=== PATIENT | male | born 1945 | race African-American/Black ===

== ENCOUNTER 2016-07-01 22:31 | Inpatient (IN) | payer MEDICARE, MEDICAID ==
[~2016-07-01] VITALS: Ht 170.2 cm; Wt 70.3 kg
[~2016-07-01 22:31] MED LIST: Morphine Sulfate 4mg/ml Inj IVP ONE
[2016-07-01 22:33] VITALS: BP 134/78
[2016-07-01 22:50] LABS: APPEARANCE,URINE CLEAR; BASOPHILS % (AUTO) 1.8 % (0.0-2.0); KETONES,URINE 1+ (NEGATIVE); LEUKOCYTE ESTERASE ,URINE NEGATIVE (NEGATIVE); LYMPHOCYTES % (AUTO) 17.5 % (20.0-45.0); MEAN CORPUSCULAR HEMOGLOBIN 29.6 PG (27.0-31.0); MEAN CORPUSCULAR HGB CONC 32.8 G/DL (32.0-36.0); MEAN CORPUSCULAR VOLUME 90 FL (80-99); MEAN PLATELET VOLUME 6.8 FL (6.5-10.1); MONOCYTES % (AUTO) 9.9 % (1.0-10.0); NEUTROPHILS % (AUTO) 69.8 % (45.0-75.0); NITRITE,URINE NEGATIVE (NEGATIVE); PH,URINE 8 (4.5-8.0); PLATELET COUNT 210 K/UL (150-450); PROTEIN,URINE NEGATIVE (NEGATIVE); RED BLOOD COUNT 4.52 M/UL (4.70-6.10); RED CELL DISTRIBUTION WIDTH 12.4 % (11.6-14.8); UROBILINOGEN,URINE NORMAL MG/DL (0.0-1.0); WHITE BLOOD COUNT 7.2 K/UL (4.8-10.8)
[2016-07-01] MEDS ORDERED: HARVONI 90-4001 EACH PO (22:59)
[2016-07-01 23:25] VITALS: BP 135/74
[2016-07-01 23:25] LABS: ALANINE AMINOTRANSFERASE 71 U/L (3-41); ALBUMIN/GLOBULIN RATIO 1.3 (1.0-2.7); ANION GAP 15 (5-15); ASPARTATE AMINO TRANSFERASE 85 U/L (5-40); CALCIUM 9.8 mg/dL (8.6-10.2); CARBON DIOXIDE 30 mEQ/L (20-30); CHLORIDE 98 mEQ/L (98-107); CREATININE 0.7 mg/dL (0.7-1.2); HEMOLYSIS 5; LIPASE 72 U/L (< 60); POTASSIUM 3.5 mEQ/L (3.4-4.9); SODIUM 143 mEQ/L (135-145); TOTAL PROTEIN 7.5 g/dL (6.6-8.7)
[2016-07-02 01:25] VITALS: BP 103/66
[2016-07-02] MEDS ORDERED: Morphine Sulfate 4mg/ml Inj IVP ONE (03:15)
[2016-07-02 03:25] VITALS: BP 105/69
--- NOTE | 2016-07-02 04:01 | Emergency Room Report ---
History of Present Illness General Chief Complaint: Abdominal Pain Source: Patient, EMS Present Illness HPI 70-year-old male presents to ED complaining of abdominal pain. Pain is localized mid abdomen, sharp, 7/10, nonradiating. Notes nausea and vomiting. No other aggravating or relieving factors. Denies chest pain or shortness of breath. Denies fevers or chills. Patient states he has history of small bowel obstruction in the past. Was admitted to [facility] several months ago for the same thing. History of appendectomy. History of hep C. Denies any other associated symptoms Allergies: Coded Allergies: No Known Allergies (Unverified , 07/01/16) Patient History Past Medical History: none, other - hep C Past Surgical History: appy Pertinent Family History: none Social History: Denies: alcohol use, drug use, smoking Immunizations: UTD Reviewed Nursing Documentation: PMH: Agreed, PSxH: Agreed Review of Systems All Other Systems: negative except mentioned in HPI Physical Exam Vital Signs Date Time Temp Pulse Resp B/P Pulse Ox O2 Delivery O2 Flow Rate FiO2 07/01/16 21:57 98.6 61 18 111/67 98 Room Air Sp02 EP Interpretation: reviewed, normal General Appearance: no apparent distress, alert, GCS 15, non-toxic Head: normocephalic Eyes: bilateral eye PERRL, bilateral eye normal inspection ENT: normal ENT inspection Neck: normal inspection Respiratory: chest non-tender, lungs clear, normal breath sounds, speaking full sentences Cardiovascular #1: regular rate, rhythm, no edema Gastrointestinal: normal bowel sounds, soft, non-distended, no guarding, no rebound, tenderness - periumbilical, other - surgical scar RLQ Rectal: deferred Genitourinary: no CVA tenderness Musculoskeletal: normal inspection Neurologic: alert, oriented x3, responsive, motor strength/tone normal, sensory intact, speech normal Psychiatric: normal inspection Skin: normal inspection Lymphatic: normal inspection Medical Decision Making Diagnostic Impression: Primary Impression: Partial small bowel obstruction ER Course Hospital Course 70-year-old male presents to ED with abdominal pain and vomiting. 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 After initial history and physical I ordered labs, IV fluids, UA, pain medication and CT scan Labs - no leukocytosis, Hb/Hct stable. electrolytes ok. CT abdomen and pelvis - SBO with transition point in RLQ. ? mesenteric volvolus vs internal hernia NG tube placed. Case discussed with Dr. Peralta and he agreed to accept the patient to his service for further care and support. Dr. Acevedo agreed to consult on case I feel this is a highly complex case requiring extensive working including EKG/ Rhythm strip, Xray/CT/US, Blood/urine lab work, repeat exams while in ED, and administration of strong opiates/narcotics for pain control, admission to hospital or close patient follow up. Diagnosis - partial small bowel obstruction Patient admitted to floor in serious condition Labs Test 07/01/16 22:37 White Blood Count 7.2 K/UL (4.8-10.8) Red Blood Count 4.52 M/UL (4.70-6.10) Hemoglobin 13.3 G/DL (14.2-18.0) Hematocrit 40.7 % (42.0-52.0) Mean Corpuscular Volume 90 FL (80-99) Mean Corpuscular Hemoglobin 29.6 PG (27.0-31.0) Mean Corpuscular Hemoglobin Concent 32.8 G/DL (32.0-36.0) Red Cell Distribution Width 12.4 % (11.6-14.8) Platelet Count 210 K/UL (150-450) Mean Platelet Volume 6.8 FL (6.5-10.1) Neutrophils (%) (Auto) 69.8 % (45.0-75.0) Lymphocytes (%) (Auto) 17.5 % (20.0-45.0) Monocytes (%) (Auto) 9.9 % (1.0-10.0) Eosinophils (%) (Auto) 1.0 % (0.0-3.0) Basophils (%) (Auto) 1.8 % (0.0-2.0) Urine Color Yellow Urine Appearance Clear Urine pH 8 (4.5-8.0) Urine Specific [place] 1.015 (1.005-1.035) Urine Protein Negative (NEGATIVE) Urine Glucose (UA) Negative (NEGATIVE) Urine Ketones 1+ (NEGATIVE) Urine Occult Blood Negative (NEGATIVE) Urine Nitrite Negative (NEGATIVE) Urine Bilirubin Negative (NEGATIVE) Urine Urobilinogen Normal MG/DL (0.0-1.0) Urine Leukocyte Esterase Negative (NEGATIVE) Sodium Level 143 mEQ/L (135-145) Potassium Level 3.5 mEQ/L (3.4-4.9) Chloride Level 98 mEQ/L (98-107) Carbon Dioxide Level 30 mEQ/L (20-30) Anion Gap 15 (5-15) Blood Urea Nitrogen 11 mg/dL (7-23) Creatinine 0.7 mg/dL (0.7-1.2) Estimat Glomerular Filtration Rate mL/min (>60) Glucose Level 99 mg/dL (74-106) Calcium Level 9.8 mg/dL (8.6-10.2) Total Bilirubin 0.8 mg/dL (0.0-1.2) Aspartate Amino Transf (AST/SGOT) 85 U/L (5-40) Alanine Aminotransferase (ALT/SGPT) 71 U/L (3-41) Alkaline Phosphatase 93 U/L (40-129) Total Protein 7.5 g/dL (6.6-8.7) Albumin 4.3 g/dL (3.5-5.2) Globulin 3.2 g/dL Albumin/Globulin Ratio 1.3 (1.0-2.7) Lipase 72 U/L (< 60) CT/MRI/US Diagnostic Results CT/MRI/US Diagnostic Results : Imaging Test Ordered: CT A/P Impression dilated small bowel loops. transition point in RLQ. ? mesenteric volvolus or internal hernia Last Vital Signs Date Time Temp Pulse Resp B/P Pulse Ox O2 Delivery O2 Flow Rate FiO2 07/02/16 03:25 78 15 105/69 98 Room Air 07/02/16 01:25 97.9 Status: improved Disposition: ADMITTED INPATIENT Condition: Serious Referrals: NON PHYSICIAN (PCP) MARCELINO FISCHER M.D. Jul 02, 2016 04:01
[2016-07-02 05:25] VITALS: BP 101/68
[2016-07-02 06:42] VITALS: BP 105/67
--- NOTE | 2016-07-02 10:17 | Consultation ---
DATE OF CONSULTATION: 07/02/2016 CONSULTING PHYSICIAN: Lashon Acevedo M.D. REQUESTING PHYSICIAN: Dante Peralta M.D. REASON FOR CONSULTATION: Abdominal pain. HISTORY OF PRESENT ILLNESS: This is a 70-year-old, male, who presented to emergency room complaining of abdominal pain since 5 o'clock in the afternoon yesterday. He stated the pain was periumbilical and apparently it has been crampy, but he is not sure if this crampy. At the emergency room, he was given an analgesic and since then, the pain has resolved. He stated that he vomited and prior to vomiting he had a normal bowel movement. Apparently, the patient has been admitted to [facility] three or four months ago for bowel obstruction and he states after two to three days he started having bowel movement and the pain resolved. The only surgery that he had in the abdomen is appendectomy, which apparently has been was performed for about six to seven years ago. He is not very clear, but he stated that occasionally if he has abdominal pain, but he has acid reflux so for. He denies any fever, cough, dysuria, or frequency. PAST MEDICAL HISTORY: He denies allergies, asthma, diabetes, hypertension, cardiac or renal diseases. He has a history hepatic C. PAST SURGICAL HISTORY: Surgeries include appendectomy, hemorrhoidectomy, and left inguinal herniorrhaphy. MEDICATIONS: Currently, he takes medicine for hepatitis C. SOCIAL HISTORY: The patient is a 70-year-old, male, who is and father of two children. He is unemployed. He denies smoking, and drinking, but has a history of IV drug abuse, but he claims that he has been clear and clean for 20 years. REVIEW OF SYSTEMS: Noncontributory. PHYSICAL EXAMINATION: GENERAL: The patient were appeared to be a well-developed, well-nourished, mildly cachectic 70-year-old, male, lying in bed, in no acute distress and denies any pain at the present time. HEENT: Head is normocephalic and atraumatic. Eyes, pupils are equal, round, and reactive to light. Mouth is clear, but is . NECK: There is no palpable thyromegaly or adenopathy. CHEST: Clear to auscultation and percussion. HEART: There is no gallop. There is no murmur. He has a split of the S2. ABDOMEN: Mildly distended, but soft. Not tender. The bowel sounds are hypoactive and there is no palpable organomegaly. GENITALIA: He is status post left inguinal herniorrhaphy. EXTREMITIES: Extremities are within normal limits. LABORATORY AND DIAGNOSTIC DATA: CBC is normal. WBC is 7200. Chemistry is normal. UA is normal. A CAT scan of the abdomen has shown dilated small bowel loops with a transition point in the right lower quadrant, but the patient has gas and air in the large bowel. ASSESSMENT: Partial small bowel obstruction. PLAN: At this time, the patient requires to be NPO, on IV fluids, and NG tube. I took the liberty of ordering a Gastrografin small bowel follow through. If his condition does not improve, he might require exploratory laparotomy. This has been explained to the patient and he understood. Lashon Acevedo M.D. DR: Helen JOB#: [id number] CC:
[2016-07-02] MEDS: Metoclopramide 10mg/2ml Inj IVP SCH ×2 (10:29→18:09)
[2016-07-02] MEDS: Pantoprazole Inj IVP SCH (10:30)
[2016-07-02] MEDS: Morphine Sulfate 2mg/ml Inj IVP PRN ×3 (13:54→22:55)
--- NOTE | 2016-07-02 14:12 | Consultation ---
Consult Note Consult Note ID Dic # [id number] Assessment/Plan A: Hep C on Rx ( Harvoni since 06/28/15 ) Partial SBO Ex IVDA P: Monitor pt off of IV AB Rx cont pt on Harvoni ( pt may take home meds, AURELIANO RN and Pt ) Monitor CBC Monitor BMP GenSx is following CT of Abd : THERESA GRANADOS M.D. Jul 02, 2016 14:12
[2016-07-02 16:00] VITALS: BP 144/85
[2016-07-02 20:00] VITALS: BP 135/79
[2016-07-03] MEDS: Metoclopramide 10mg/2ml Inj IVP SCH ×3 (01:43→16:16)
--- NOTE | 2016-07-03 02:27 | Consultation ---
DATE OF CONSULTATION: INFECTIOUS DISEASES CONSULTATION CONSULTING PHYSICIAN: Julian Martínez M.D. REQUESTING PHYSICIAN: REASON FOR CONSULTATION: Evaluation of the patient for small bowel obstruction, need for antibiotics and hepatitis C. HISTORY OF PRESENT ILLNESS: The patient is a 70-year-old male with past medical history significant for hepatitis C, who was started on his hepatitis C regimen four days ago (Harvoni). The patient came to the hospital with nausea and vomiting. The patient has been admitted with the impression of partial small bowel obstruction. The patient does not have fever. No leukocytosis. Infectious Disease consultation has been requested for further evaluation of the patient and antibiotic management. PAST MEDICAL HISTORY: 1. Significant for hepatitis C, the patient denies of having cirrhosis. 2. History of appendectomy. ALLERGIES: No known drug allergies. SOCIAL HISTORY: IV drug abuse and alcohol abuse in the past. FAMILY HISTORY: Noncontributory. REVIEW OF SYSTEMS: HEENT: No recent change in vision or hearing. Pulmonary: No cough or shortness of breath. Cardiovascular: No chest pain or palpitation. Gastrointestinal/Abdomen: As mentioned above. Genitourinary: No dysuria. Musculoskeletal: No pain in the extremities. PHYSICAL EXAMINATION: VITAL SIGNS: Temperature 98 degrees, blood pressure 113/69, pulse 72, and respiratory rate 18. HEENT: Mild pale conjunctivae. No icterus. NECK: No lymphadenopathy. CHEST: Coarse breathing sounds. HEART: S1 and S2. ABDOMEN: Soft. The patient is mildly distended. Has mild tenderness. NEUROLOGIC: Awake and alert. LABORATORY DATA: White blood cells 7.2, hemoglobin 13, and platelets 210,000. UA, unremarkable. BUN 11 and creatinine 0.7. ASSESSMENT: The patient is a 70-year-old male, who has been admitted to this medical center with impression of small bowel obstruction. The CT scan result is not available at this time. The patient has been taking hepatitis C treatment (Harvoni) for the last four days that needs to be continued. At this time, the patient has no fever or leukocytosis antibiotics for intra-abdominal sepsis/infection. PLAN: 1. We will monitor the patient off of IV antibiotics, however if the patient develops fever or leukocytosis, we will start empiric antibiotic treatment for coverage of gram negatives and anaerobes. 2. We will continue the patient on Harvoni (I explained to the patient and the nurse that the patient can take his home medication). 3. Monitor CBC. 4. Monitor BNP. 5. Follow recommendations regarding the small bowel obstruction by the consultants. 6. Based on the patient's clinical course and laboratories, we will do further recommendation. Thank you for this consultation. I will follow the patient during this admission. Julian Martínez M.D. DR: BROOKS JOB#: [id number] CC:
[2016-07-03] MEDS: Morphine Sulfate 2mg/ml Inj IVP PRN ×5 (03:03→21:05)
[2016-07-03 04:00] VITALS: BP 136/77
[2016-07-03] MEDS: Pantoprazole Inj IVP SCH (07:30)
[2016-07-03 08:00] VITALS: BP 154/88
[2016-07-03] MEDS: HARVONI ORAL SCH (09:44)
--- NOTE | 2016-07-03 10:29 | History and Physical ---
History of Present Illness General Date patient seen: Jul 02, 2016 Reason for Hospitalization: Abdominal Pain Present Illness HPI This is a 70 y/o AA male with history of SBO about 5 months ago and Hepatitis C who presented to the ED c/o abdominal pain since yesterday evening. Reports pain to be cramp like gladys-umbilically associated with nausea and vomiting. He still reports intermitted pain but no more vomiting. Patient states that he was at [facility] about 5 months ago when he had SBO and resolved after 2- [address] A/P in the ED revealed partial SBO. NGT was placed to [facility] and admitted for further care. Allergies: Coded Allergies: No Known Allergies (Unverified , 07/01/16) Medication History Miscellaneous Medications Ledipasvir/Sofosbuvir (Harvoni 90-400 mg Tablet), 1 EACH PO, (Reported) Patient History History Provided By: Patient Healthcare decision maker Resuscitation status Advanced Directive on File Past Medical/Surgical History Past Medical/Surgical History: (1) Hepatitis C Review of Systems All Other Systems: negative except mentioned in HPI Physical Exam General Appearance: WD/WN, no apparent distress Lines, tubes and drains: ngt HEENT: normocephalic, atraumatic Respiratory/Chest: lungs clear Cardiovascular/Chest: normal rate, regular rhythm Abdomen: non tender, soft Extremities: no edema Neurologic: alert, oriented x 3 Last 24 Hour Vital Signs Date Time Temp Pulse Resp B/P Pulse Ox O2 Delivery O2 Flow Rate FiO2 07/03/16 08:01 99.0 07/03/16 08:00 98.1 60 18 154/88 93 Room Air 07/03/16 04:00 99.0 59 18 136/77 97 Room Air 07/02/16 20:00 98.4 62 20 135/79 98 Room Air 07/02/16 16:00 98.1 68 18 144/85 98 Room Air Intake and Output 07/02/16 07/03/16 19:00 07:00 Intake Total 800 ml Output Total 350 ml 600 ml Balance -350 ml 200 ml Intake Oral 0 ml IV Total 800 ml Output Urine Total 350 ml Gastric Drainage Total 350 ml 250 ml # Voids 3 Height (Feet): 5 Height (Inches): 7.00 Weight (Pounds): 155 Medications Current Medications Medications (Trade) Dose Ordered Sig/Chester Route PRN Reason Start Time Stop Time Status Last Admin Dose Admin Dextrose (Dextrose 50%) STAT PRN IV Hypoglycemia 07/02/16 09:30 08/01/16 09:29 Dextrose/ Electrolytes (D5NS W/KCl 20meq 1000ml) 1,000 ml @ 100 mls/hr Q10H IV 07/02/16 10:29 08/01/16 10:28 07/02/16 22:55 Metoclopramide HCl 10 mg 10 mg Q8H IVP 07/02/16 09:15 08/01/16 09:14 07/03/16 09:48 Morphine Sulfate (Morphine Sulfate) 2 mg Q4H PRN IVP Severe Pain (Pain Scale 7-10) 07/02/16 09:30 07/09/16 09:29 07/03/16 07:31 Ondansetron HCl (Zofran) 4 mg Q6H PRN IVP Nausea & Vomiting 07/02/16 09:30 08/01/16 09:29 07/03/16 03:03 Pantoprazole (Protonix) 40 mg DAILY IVP 07/02/16 09:30 08/01/16 09:29 07/03/16 07:30 Patient Own Medication (Patient's Own Med) 1 ea DAILY ORAL 07/03/16 09:00 08/02/16 08:59 07/03/16 09:44 Assessment/Plan Problem List: (1) Partial small bowel obstruction ICD Codes: K56.69 - Other intestinal obstruction SNOMED: 590474325 (2) Hepatitis C ICD Codes: B19.20 - Unspecified viral hepatitis C without hepatic coma SNOMED: 34923865 Qualifiers: Assessment/Plan Surgery consulted with Dr. Acevedo. GI consulted with Dr. Leach. ID with Dr Hercules for hx Hep C. His current medication is not on formulary at [facility]. D/w Dr Peralta who agrees with plan. Pain management. IVF. Cont NGT to LIS. F/u recs per surgMADELYN LANDIN Jul 03, 2016 10:29
[2016-07-03 10:53] LABS: EOSINOPHILS % (AUTO) 0.2 % (0.0-3.0); LYMPHOCYTES % (AUTO) 19.3 % (20.0-45.0); MEAN CORPUSCULAR HEMOGLOBIN 29.5 PG (27.0-31.0); MEAN CORPUSCULAR HGB CONC 33.6 G/DL (32.0-36.0); MEAN CORPUSCULAR VOLUME 88 FL (80-99); MONOCYTES % (AUTO) 11.6 % (1.0-10.0); NEUTROPHILS % (AUTO) 67.9 % (45.0-75.0); PLATELET COUNT 216 K/UL (150-450); RED BLOOD COUNT 4.51 M/UL (4.70-6.10); RED CELL DISTRIBUTION WIDTH 12.3 % (11.6-14.8); WHITE BLOOD COUNT 8.2 K/UL (4.8-10.8)
[2016-07-03 11:04] LABS: ANION GAP 12 (5-15); CALCIUM 9.3 mg/dL (8.6-10.2); CARBON DIOXIDE 27 mEQ/L (20-30); CHLORIDE 105 mEQ/L (98-107); CREATININE 0.7 mg/dL (0.7-1.2); HEMOLYSIS 4; POTASSIUM 4.1 mEQ/L (3.4-4.9); SODIUM 144 mEQ/L (135-145)
--- NOTE | 2016-07-03 11:44 | GI Initial Consult Note ---
History of Present Illness General Date patient seen: Jul 03, 2016 Time patient seen: 10:00 Reason for Hospitalization: Abdominal Pain Referring physician: KYLEE HANSON Reason for Consultation: ABDOMINAL PAIN / SBO Present Illness HPI 70-year-old male presents to ED complaining of abdominal pain. Pain is localized mid abdomen, sharp, 7/10, nonradiating. Notes nausea and vomiting. No other aggravating or relieving factors. Denies chest pain or shortness of breath. Denies fevers or chills. Patient states he has history of small bowel obstruction in the past. Was admitted to [facility] several months ago for the same thing. History of appendectomy. History of hep C. Denies any other associated symptoms GI NOTE: HPI as noted above. Pt seen on floor, A&Ox4 NAD with no general complaints at this time. Denies N/V, diarrhea, or abdominal pain. No reports of passing flatus or BM. NPO with NGT to LICS. Pt also p/w today abnormal LFTs and elevated lipase. Pt stated he had a colonoscopy in [place] last week. He cannot recall the results of the procedure. Home Meds Reported Medications Ledipasvir/Sofosbuvir (Harvoni 90-400 mg Tablet) 1 Each Tablet, 1 EACH PO, TAB 07/01/16 Allergies: Coded Allergies: No Known Allergies (Unverified , 07/01/16) Patient History History Provided By: Patient, Medical Record PMH Narrative Past Medical History: none, other - hep C Past Surgical History: appy Pertinent Family History: none Social History: Denies: alcohol use, drug use, smoking Immunizations: UTD Reviewed Nursing Documentation: PMH: Agreed, PSxH: Agreed Review of Systems All Other Systems: negative except mentioned in HPI Physical Exam Vital Signs Date Time Temp Pulse Resp B/P Pulse Ox O2 Delivery O2 Flow Rate FiO2 07/01/16 21:57 98.6 61 18 111/67 98 Room Air Sp02 EP Interpretation: reviewed Labs Laboratory Tests Test 07/03/16 10:20 White Blood Count 8.2 K/UL (4.8-10.8) Red Blood Count 4.51 M/UL (4.70-6.10) L Hemoglobin 13.3 G/DL (14.2-18.0) L Hematocrit 39.6 % (42.0-52.0) L Mean Corpuscular Volume 88 FL (80-99) Mean Corpuscular Hemoglobin 29.5 PG (27.0-31.0) Mean Corpuscular Hemoglobin Concent 33.6 G/DL (32.0-36.0) Red Cell Distribution Width 12.3 % (11.6-14.8) Platelet Count 216 K/UL (150-450) Mean Platelet Volume 7.0 FL (6.5-10.1) Neutrophils (%) (Auto) 67.9 % (45.0-75.0) Lymphocytes (%) (Auto) 19.3 % (20.0-45.0) L Monocytes (%) (Auto) 11.6 % (1.0-10.0) H Eosinophils (%) (Auto) 0.2 % (0.0-3.0) Basophils (%) (Auto) 1.0 % (0.0-2.0) Sodium Level 144 mEQ/L (135-145) Potassium Level 4.1 mEQ/L (3.4-4.9) Chloride Level 105 mEQ/L (98-107) Carbon Dioxide Level 27 mEQ/L (20-30) Anion Gap 12 (5-15) Blood Urea Nitrogen 12 mg/dL (7-23) Creatinine 0.7 mg/dL (0.7-1.2) Estimat Glomerular Filtration Rate mL/min (>60) Glucose Level 108 mg/dL (74-106) H Calcium Level 9.3 mg/dL (8.6-10.2) Magnesium Level 1.9 mg/dL (1.7-2.5) General Appearance: well appearing, no apparent distress, alert Head: normocephalic EENT: normal ENT inspection Neck: supple Respiratory: normal breath sounds, no respiratory distress Cardiovascular: normal rate Gastrointestinal: ngt Rectal: deferred Musculoskeletal: back normal Neurologic: normal inspection, alert, oriented x3, responsive Psychiatric: normal inspection, judgement/insight normal Skin: normal inspection, normal color, no rash, warm/dry Lymphatic: normal inspection, no adenopathy Current Medications Current Medications Medications (Trade) Dose Ordered Sig/[place]ster Route PRN Reason Start Time Stop Time Status Last Admin Dose Admin Dextrose (Dextrose 50%) STAT PRN IV Hypoglycemia 07/02/16 09:30 08/01/16 09:29 Dextrose/ Electrolytes (D5NS W/KCl 20meq 1000ml) 1,000 ml @ 100 mls/hr Q10H IV 07/02/16 10:29 08/01/16 10:28 07/02/16 22:55 Metoclopramide HCl 10 mg 10 mg Q8H IVP 07/02/16 09:15 08/01/16 09:14 07/03/16 09:48 Morphine Sulfate (Morphine Sulfate) 2 mg Q4H PRN IVP Severe Pain (Pain Scale 7-10) 07/02/16 09:30 07/09/16 09:29 07/03/16 07:31 Ondansetron HCl (Zofran) 4 mg Q6H PRN IVP Nausea & Vomiting 07/02/16 09:30 08/01/16 09:29 07/03/16 03:03 Pantoprazole (Protonix) 40 mg DAILY IVP 07/02/16 09:30 08/01/16 09:29 07/03/16 07:30 Patient Own Medication (Patient's Own Med) 1 ea DAILY ORAL 07/03/16 09:00 08/02/16 08:59 07/03/16 09:44 GI: Plan Problems: (1) Abdominal pain (2) Elevated lipase (3) Hepatitis C (4) Partial small bowel obstruction Plan f/u surgical recs fu SB follow thru maintain NPO + IVFs NGTF to LCIS ppi cont reglan fu labs Discussed with Dr. Leach. Thank you for referring this patient, we will follow. Alma Encinas N.P. Jul 03, 2016 11:44
[2016-07-03 12:00] VITALS: BP 137/78
--- NOTE | 2016-07-03 15:11 | Nephrology Progress Note ---
Assessment/Plan Problem List: (1) Partial small bowel obstruction (2) Abdominal pain (3) Elevated lipase Plan Continue NPO Continue IVF Continue NGT-LIS Pain mgt F/u with surg recs Subjective Constitutional: Denies: chills, diaphoresis, fever, malaise, no symptoms, other , weakness HEENT: Denies: blurred vision, double vision, ear discharge, ear pain, eye pain , mouth pain, mouth swelling, no symptoms, nose congestion, nose pain, other, tearing, throat pain, throat swelling Genitourinary: Denies: burning, discharge, flank pain, frequency, hematuria, incontinence, no symptoms, other, pain, urgency Neurologic/Psychiatric: Denies: anxiety, depressed, emotional problems, headache, no symptoms, numbness, other, paresthesia, pre-existing deficit, seizure, tingling, tremors, weakness Subjective In bed, in no distress, stated that he was in severe pain earlier when he was given some contrast. NGT-LIS Objective Objective Last 24 Hour Vital Signs Date Time Temp Pulse Resp B/P Pulse Ox O2 Delivery O2 Flow Rate FiO2 07/03/16 13:29 99.0 07/03/16 12:00 99.1 57 18 137/78 98 Room Air 07/03/16 08:00 98.1 60 18 154/88 93 Room Air 07/03/16 04:00 99.0 59 18 136/77 97 Room Air 07/02/16 20:00 98.4 62 20 135/79 98 Room Air 07/02/16 16:00 98.1 68 18 144/85 98 Room Air Intake and Output 07/02/16 07/03/16 19:00 07:00 Intake Total 800 ml Output Total 350 ml 600 ml Balance -350 ml 200 ml Intake Oral 0 ml IV Total 800 ml Output Urine Total 350 ml Gastric Drainage Total 350 ml 250 ml # Voids 3 Laboratory Tests 07/03/16 10:20: White Blood Count 8.2, Red Blood Count 4.51L, Hemoglobin 13.3L, Hematocrit 39.6L , Mean Corpuscular Volume 88, Mean Corpuscular Hemoglobin 29.5, Mean Corpuscular Hemoglobin Concent 33.6, Red Cell Distribution Width 12.3, Platelet Count 216, Mean Platelet Volume 7.0, Neutrophils (%) (Auto) 67.9, Lymphocytes (% ) (Auto) 19.3L, Monocytes (%) (Auto) 11.6H, Eosinophils (%) (Auto) 0.2, Basophils (%) (Auto) 1.0, Sodium Level 144, Potassium Level 4.1, Chloride Level 105, Carbon Dioxide Level 27, Anion Gap 12, Blood Urea Nitrogen 12, Creatinine 0.7, Estimat Glomerular Filtration Rate , Glucose Level 108H, Calcium Level 9.3 , Magnesium Level 1.9 Height (Feet): 5 Height (Inches): 7.00 Weight (Pounds): 155 General Appearance: alert EENT: normal ENT inspection Neck: normal alignment, normal inspection Cardiovascular: normal rate, regular rhythm Respiratory/Chest: lungs clear, normal breath sounds Abdomen: decreased bowel sounds Extremities: normal range of motion, non-tender, normal inspection Neurologic: alert, oriented x 3, responsive, normal mood/affect Alona Olivera N.P. Jul 03, 2016 15:11
[2016-07-03 16:00] VITALS: BP 153/91
--- NOTE | 2016-07-03 18:29 | Infectious Diseases Prog Note ---
Assessment/Plan Assessment/Plan ASSESSMENT: 70 y/o male with: Chronic HCV, on Harvoni since 06/28/15 Afebrile without leukocytosis Partial SBO h/o IVDA NKDA Full Code PLAN: no indication for systemic ABX at this time continue Harvoni ( pt may take home meds ) f/u cultures f/u CT A/P Monitor CBC, temperatures Monitor CMP Subjective Allergies: Coded Allergies: No Known Allergies (Unverified , 07/01/16) Subjective remains afebrile Objective Vital Signs Last 24 Hour Vital Signs Date Time Temp Pulse Resp B/P Pulse Ox O2 Delivery O2 Flow Rate FiO2 07/03/16 16:00 97.3 61 21 153/91 98 Room Air 07/03/16 13:29 99.0 07/03/16 12:00 99.1 57 18 137/78 98 Room Air 07/03/16 08:00 98.1 60 18 154/88 93 Room Air 07/03/16 04:00 99.0 59 18 136/77 97 Room Air 07/02/16 20:00 98.4 62 20 135/79 98 Room Air Height (Feet): 5 Height (Inches): 7.00 Weight (Pounds): 155 General Appearance: no acute distress Respiratory/Chest: no respiratory distress Cardiovascular: normal rate, regular rhythm Abdomen: normal bowel sounds, soft, non tender, non distended Laboratory Tests Test 07/03/16 10:20 White Blood Count 8.2 K/UL (4.8-10.8) Red Blood Count 4.51 M/UL (4.70-6.10) L Hemoglobin 13.3 G/DL (14.2-18.0) L Hematocrit 39.6 % (42.0-52.0) L Mean Corpuscular Volume 88 FL (80-99) Mean Corpuscular Hemoglobin 29.5 PG (27.0-31.0) Mean Corpuscular Hemoglobin Concent 33.6 G/DL (32.0-36.0) Red Cell Distribution Width 12.3 % (11.6-14.8) Platelet Count 216 K/UL (150-450) Mean Platelet Volume 7.0 FL (6.5-10.1) Neutrophils (%) (Auto) 67.9 % (45.0-75.0) Lymphocytes (%) (Auto) 19.3 % (20.0-45.0) L Monocytes (%) (Auto) 11.6 % (1.0-10.0) H Eosinophils (%) (Auto) 0.2 % (0.0-3.0) Basophils (%) (Auto) 1.0 % (0.0-2.0) Sodium Level 144 mEQ/L (135-145) Potassium Level 4.1 mEQ/L (3.4-4.9) Chloride Level 105 mEQ/L (98-107) Carbon Dioxide Level 27 mEQ/L (20-30) Anion Gap 12 (5-15) Blood Urea Nitrogen 12 mg/dL (7-23) Creatinine 0.7 mg/dL (0.7-1.2) Estimat Glomerular Filtration Rate mL/min (>60) Glucose Level 108 mg/dL (74-106) H Calcium Level 9.3 mg/dL (8.6-10.2) Magnesium Level 1.9 mg/dL (1.7-2.5) Current Medications Medications (Trade) Dose Ordered Sig/Chester Route PRN Reason Start Time Stop Time Status Last Admin Dose Admin Dextrose (Dextrose 50%) STAT PRN IV Hypoglycemia 07/02/16 09:30 08/01/16 09:29 Dextrose/ Electrolytes (D5NS W/KCl 20meq 1000ml) 1,000 ml @ 100 mls/hr Q10H IV 07/02/16 10:29 08/01/16 10:28 07/02/16 22:55 Metoclopramide HCl 10 mg 10 mg Q8H IVP 07/02/16 09:15 08/01/16 09:14 07/03/16 16:16 Morphine Sulfate (Morphine Sulfate) 2 mg Q4H PRN IVP Severe Pain (Pain Scale 7-10) 07/02/16 09:30 07/09/16 09:29 07/03/16 17:08 Ondansetron HCl (Zofran) 4 mg Q6H PRN IVP Nausea & Vomiting 07/02/16 09:30 08/01/16 09:29 07/03/16 13:07 Pantoprazole (Protonix) 40 mg DAILY IVP 07/02/16 09:30 08/01/16 09:29 07/03/16 07:30 Patient Own Medication (Patient's Own Med) 1 ea DAILY ORAL 07/03/16 09:00 08/02/16 08:59 07/03/16 09:44 EMMANUEL MCCLOUD Jul 03, 2016 18:29
[2016-07-03 20:00] VITALS: BP 150/84
[2016-07-04] VITALS (12 sets, daily range): BP systolic 120–153; BP diastolic 80–93
[2016-07-04] MEDS: Metoclopramide 10mg/2ml Inj IVP SCH ×3 (00:59→17:43)
[2016-07-04] MEDS: Morphine Sulfate 2mg/ml Inj IVP PRN ×4 (01:00→17:51)
[2016-07-04 07:37] LABS: BASOPHILS % (AUTO) 0.5 % (0.0-2.0); EOSINOPHILS % (AUTO) 0.2 % (0.0-3.0); LYMPHOCYTES % (AUTO) 10.8 % (20.0-45.0); MEAN CORPUSCULAR HGB CONC 32.9 G/DL (32.0-36.0); MEAN CORPUSCULAR VOLUME 91 FL (80-99); MEAN PLATELET VOLUME 7.1 FL (6.5-10.1); MONOCYTES % (AUTO) 12.2 % (1.0-10.0); NEUTROPHILS % (AUTO) 76.3 % (45.0-75.0); PLATELET COUNT 214 K/UL (150-450); RED BLOOD COUNT 4.62 M/UL (4.70-6.10); RED CELL DISTRIBUTION WIDTH 11.9 % (11.6-14.8); WHITE BLOOD COUNT 11.1 K/UL (4.8-10.8)
[2016-07-04 08:02] LABS: ALANINE AMINOTRANSFERASE 48 U/L (3-41); ALBUMIN/GLOBULIN RATIO 1.2 (1.0-2.7); ANION GAP 11 (5-15); ASPARTATE AMINO TRANSFERASE 52 U/L (5-40); CALCIUM 9.8 mg/dL (8.6-10.2); CARBON DIOXIDE 30 mEQ/L (20-30); CHLORIDE 109 mEQ/L (98-107); CREATININE 0.8 mg/dL (0.7-1.2); HEMOLYSIS 8; SODIUM 150 mEQ/L (135-145); TOTAL PROTEIN 7.4 g/dL (6.6-8.7)
--- NOTE | 2016-07-04 08:33 | Diagnostic Imaging Report ---
Indications: Abdominal pain, significant small bowel dilation on recent abdominopelvic CT scan Technique: Single: Small bowel series performed with administration of Gastrografin through indwelling nasogastric tube. Serial overhead images of the abdomen and pelvis obtained for a duration of 9 hours. The patient vomited several times during the procedure, expelling some of the administered Gastrografin. Findings: Comparison: CT abdomen pelvis 07/02/2016 Abdomen AP stripper color film a straight persistent significant dilation of multiple small bowel loops, gas and feces scattered throughout nondilated colon, nasogastric tube in stomach. Gastrografin passes to the level of mid-distal small bowel in pelvis by 9 hours following administration has become significantly dilated. It has not reached the colon. Impression: Lack of passage of administered Gastrografin into the colon by 9 hours, small bowel obstruction versus severe ileus followup abdominal radiograph recommended.
[2016-07-04] MEDS: Pantoprazole Inj IVP SCH (08:50)
[2016-07-04] MEDS: HARVONI ORAL SCH (08:50)
--- NOTE | 2016-07-04 11:00 | GI Progress Note ---
Assessment/Plan Problems: (1) Elevated lipase ICD Codes: R74.8 - Abnormal levels of other serum enzymes SNOMED: 810699260 (2) Abdominal pain ICD Codes: R10.9 - Unspecified abdominal pain SNOMED: 88376343 (3) Partial small bowel obstruction ICD Codes: K56.69 - Other intestinal obstruction SNOMED: 306275216 (4) Hepatitis C ICD Codes: B19.20 - Unspecified viral hepatitis C without hepatic coma SNOMED: 68865482 Qualifiers: Status: unchanged Status Narrative Discussed with Dr. Leach. Assessment/Plan f/u surgical recs SB xray reviewed maintain NPO + IVFs NGTF to LCIS ppi cont reglan fu labs outpatient Hep C tx The patient was seen and examined at bedside and all new and available data was reviewed in the patients chart. I agree with the above findings, impression and plan. (Patient seen earlier today. Signature stamp does not reflect patient encounter time.). -Calderon Leach MD Subjective Gastrointestinal/Abdominal: Reports: no symptoms Objective Last 24 Hour Vital Signs Date Time Temp Pulse Resp B/P Pulse Ox O2 Delivery O2 Flow Rate FiO2 07/04/16 09:22 98.0 07/04/16 08:29 98.0 65 20 145/88 95 Room Air 07/04/16 04:00 98.1 61 19 153/88 97 Room Air 07/04/16 00:00 98.2 66 20 148/89 97 Room Air 07/03/16 20:00 98.4 65 21 150/84 98 Room Air 07/03/16 16:00 97.3 61 21 153/91 98 Room Air 07/03/16 12:00 99.1 57 18 137/78 98 Room Air Intake and Output 07/03/16 07/04/16 19:00 07:00 Intake Total 1050 ml Output Total 150 ml 1850 ml Balance -150 ml -800 ml IV Total 1050 ml Gastric Drainage Total 150 ml 1850 ml # Voids 3 2 Laboratory Tests Test 07/04/16 06:15 White Blood Count 11.1 K/UL (4.8-10.8) H Red Blood Count 4.62 M/UL (4.70-6.10) L Hemoglobin 13.9 G/DL (14.2-18.0) L Hematocrit 42.1 % (42.0-52.0) Mean Corpuscular Volume 91 FL (80-99) Mean Corpuscular Hemoglobin 30.0 PG (27.0-31.0) Mean Corpuscular Hemoglobin Concent 32.9 G/DL (32.0-36.0) Red Cell Distribution Width 11.9 % (11.6-14.8) Platelet Count 214 K/UL (150-450) Mean Platelet Volume 7.1 FL (6.5-10.1) Neutrophils (%) (Auto) 76.3 % (45.0-75.0) H Lymphocytes (%) (Auto) 10.8 % (20.0-45.0) L Monocytes (%) (Auto) 12.2 % (1.0-10.0) H Eosinophils (%) (Auto) 0.2 % (0.0-3.0) Basophils (%) (Auto) 0.5 % (0.0-2.0) Sodium Level 150 mEQ/L (135-145) H Potassium Level 5.0 mEQ/L (3.4-4.9) H Chloride Level 109 mEQ/L (98-107) H Carbon Dioxide Level 30 mEQ/L (20-30) Anion Gap 11 (5-15) Blood Urea Nitrogen 10 mg/dL (7-23) Creatinine 0.8 mg/dL (0.7-1.2) Estimat Glomerular Filtration Rate mL/min (>60) Glucose Level 124 mg/dL (74-106) H Calcium Level 9.8 mg/dL (8.6-10.2) Total Bilirubin 0.8 mg/dL (0.0-1.2) Aspartate Amino Transf (AST/SGOT) 52 U/L (5-40) H Alanine Aminotransferase (ALT/SGPT) 48 U/L (3-41) H Alkaline Phosphatase 87 U/L (40-129) Total Protein 7.4 g/dL (6.6-8.7) Albumin 4.1 g/dL (3.5-5.2) Globulin 3.3 g/dL Albumin/Globulin Ratio 1.2 (1.0-2.7) Lipase 23 U/L (< 60) Height (Feet): 5 Height (Inches): 7.00 Weight (Pounds): 155 General Appearance: no apparent distress, alert Cardiovascular: normal rate Respiratory/Chest: normal breath sounds, no respiratory distress Abdominal Exam: normal bowel sounds, non tender, soft, other - NGT Extremities: normal range of motion Objective Procedure: XRAY Small Bowel w/Gastrografi Indications: Abdominal pain, significant small bowel dilation on recent abdominopelvic CT scan Findings: Comparison: CT abdomen pelvis 07/02/2016 Abdomen AP datacap developer film a straight persistent significant dilation of multiple small bowel loops, gas and feces scattered throughout nondilated colon, nasogastric tube in stomach. Gastrografin passes to the level of mid-distal small bowel in pelvis by 9 hours following administration has become significantly dilated. It has not reached the colon. Impression: Lack of passage of administered Gastrografin into the colon by 9 hours, small bowel obstruction versus severe ileus followup abdominal radiograph recommended. Alma Encinas N.P. Jul 04, 2016 11:00 CALDERON LEACH Jul 05, 2016 10:20
--- NOTE | 2016-07-04 11:11 | Diagnostic Imaging Report ---
Indications: Abdominal pain, followup to Gastrografin small bowel study Technique: Portable supine AP abdomen Findings: Comparison: Gastrografin small bowel study 07/03/2016 Gastrografin no longer demonstrated. Small bowel dilation persists. Colonic gas persists. Nasogastric tube has been withdrawn into the distal thoracic esophagus. IMPRESSION: Persistent small bowel dilation. Nonvisualization of Gastrografin likely secondary to dilution. Examination nondiagnostic for bowel obstruction. Withdrawal of nasogastric tube, recommend advancement 10 cm.
[2016-07-04] MEDS ORDERED: cefOXitin 1gm Inj ONE (11:56)
[2016-07-04] MEDS ORDERED: fentaNYL 100 mcg/2 mL IV ONE (12:00)
[2016-07-04] MEDS ORDERED: NS Irrig 1000ml ONE (12:00)
[2016-07-04] MEDS ORDERED: Midazolam 2mg/2ml Inj ONE (12:00)
[2016-07-04] MEDS ORDERED: Neostigmine 1mg/ml 10ml Inj ONE (12:00)
[2016-07-04] MEDS ORDERED: Succinylcholine 20mg/ml 10ml vial ONE (12:00)
[2016-07-04] MEDS ORDERED: Sterile Water Irrig 1000ml IRRIG ONE (12:00)
[2016-07-04] MEDS ORDERED: Zemuron 50mg/5ml Inj IV ONE (12:00)
[2016-07-04] MEDS ORDERED: Propofol 10mg/ml 20ml IV ONE (12:00)
[2016-07-04] MEDS ORDERED: Glycopyrrolate 0.2mg/ml 1ml Vial ONE (12:00)
[2016-07-04] MEDS ORDERED: Morphine Sulfate 10mg/ml Inj ONE (12:00)
--- NOTE | 2016-07-04 12:02 | Pre-Procedure Note/Attestation ---
Pre-Procedure Note/Attestation Complete Prior to Procedure Procedure Narrative: Exploratory Laparotomy Indications for Procedure Pre-Operative Diagnosis: Small bowel obstruction Attestation I attest that I discussed the nature of the procedure; its benefits; risks and complications; and alternatives (and the risks and benefits of such alternatives ), prior to the procedure, with the patient (or the patient's legal bottling equipment sales representative). I attest that, if there was a reasonable possibility of needing a blood transfusion, the patient (or the patient's legal bottling equipment sales representative) was given the [facility] standardized written summary, pursuant to the [place] Hall[place] Blood Safety Act ([place] Health and Safety Code # 1645, as amended). I attest that I re-evaluated the patient just prior to the surgery and that there has been no change in the patient's H&P, except as documented below: ALEXEY LACY Jul 04, 2016 12:01
--- NOTE | 2016-07-04 12:21 | Nephrology Progress Note ---
Assessment/Plan Problem List: (1) Partial small bowel obstruction (2) Hepatitis C (3) Abdominal pain (4) Elevated lipase Plan cont NGT to LIS. F/u GI and Surg recs. Change IVF to D51/2 @75cc/hr. f/u labs. Subjective Subjective NGT in place. Objective Objective Last 24 Hour Vital Signs Date Time Temp Pulse Resp B/P Pulse Ox O2 Delivery O2 Flow Rate FiO2 07/04/16 09:22 98.0 07/04/16 08:29 98.0 65 20 145/88 95 Room Air 07/04/16 04:00 98.1 61 19 153/88 97 Room Air 07/04/16 00:00 98.2 66 20 148/89 97 Room Air 07/03/16 20:00 98.4 65 21 150/84 98 Room Air 07/03/16 16:00 97.3 61 21 153/91 98 Room Air Intake and Output 07/03/16 07/04/16 19:00 07:00 Intake Total 1050 ml Output Total 150 ml 1850 ml Balance -150 ml -800 ml IV Total 1050 ml Gastric Drainage Total 150 ml 1850 ml # Voids 3 2 Laboratory Tests 07/04/16 06:15: White Blood Count 11.1H, Red Blood Count 4.62L, Hemoglobin 13.9L, Hematocrit 42.1, Mean Corpuscular Volume 91, Mean Corpuscular Hemoglobin 30.0, Mean Corpuscular Hemoglobin Concent 32.9, Red Cell Distribution Width 11.9, Platelet Count 214, Mean Platelet Volume 7.1, Neutrophils (%) (Auto) 76.3H, Lymphocytes ( %) (Auto) 10.8L, Monocytes (%) (Auto) 12.2H, Eosinophils (%) (Auto) 0.2, Basophils (%) (Auto) 0.5, Sodium Level 150H, Potassium Level 5.0H, Chloride Level 109H, Carbon Dioxide Level 30, Anion Gap 11, Blood Urea Nitrogen 10, Creatinine 0.8, Estimat Glomerular Filtration Rate , Glucose Level 124H, Calcium Level 9.8, Total Bilirubin 0.8, Aspartate Amino Transf (AST/SGOT) 52H, Alanine Aminotransferase (ALT/SGPT) 48H, Alkaline Phosphatase 87, Total Protein 7.4, Albumin 4.1, Globulin 3.3, Albumin/Globulin Ratio 1.2, Lipase 23 Height (Feet): 5 Height (Inches): 7.00 Weight (Pounds): 155 General Appearance: no apparent distress Cardiovascular: normal rate, regular rhythm Respiratory/Chest: lungs clear Abdomen: non tender, soft Extremities: non-pitting Neurologic: alert, oriented x 3 KYLEE HANSON Jul 04, 2016 12:21
[2016-07-04] MEDS ORDERED: Bacitracin 50000 Units Vial ONE (12:30)
--- NOTE | 2016-07-04 12:54 | Anethesia Preoperative Eval ---
Anesthesia Pre-op PMH/ROS General Date of Evaluation: Jul 04, 2016 Time of Evaluation: 11:50 Anesthesiologist: Wei ASA Score: ASA 3 Mallampati Score Class I : Soft palate, uvula, fauces, pillars visible Class II: Soft palate, uvula, fauces visible Class III: Soft palate, base of uvula visible Class IV: Only hard plate visible Mallampati Classification: Class II Surgeon: Bowel obstruction Diagnosis: Exploratory laparotomy Surgical Procedure: [facility] Anesthesia History: none Social History: drug use - h/o Family History: no anesthesia problems Allergies: Coded Allergies: No Known Allergies (Unverified , 07/01/16) Past Medical History Cardiovascular: Reports: HTN, Denies: CAD, [place], arrhythmia, other, valve dz Pulmonary: Denies: COPD, COMFORT, asthma, other Gastrointestinal/Genitourinary: Reports: GERD, other - admitted for abdominal pain, Denies: CRI, ESRD Neurologic/Psychiatric: Reports: dementia - mild, Denies: CVA, TIA, depression/anxiety, other Endocrine: Denies: DM, hypothyroidism, other, steroids HEENT: Denies: [place] (L), [place] (R), cataract (L), cataract (R), glaucoma, other Hematology/Immune: Denies: DVT, anemia, bleeding disorder, other Musculoskeletal/Integumentary: Denies: DDD, DJD, OA, RA, edema, other Other: other - malnourished PMH Narrative: as above PSxH Narrative: Appendectomy Anesthesia Pre-op Phys. Exam Physician Exam Last Vital Signs Date Time Temp Pulse Resp B/P Pulse Ox O2 Delivery O2 Flow Rate FiO2 07/04/16 09:22 98.0 07/04/16 08:29 65 20 145/88 95 Room Air Constitutional: NAD Neurologic: CN 2-12 intact Cardiovascular: RRR, no M/R/G Respiratory: CTA Gastrointestinal: S/NT/ND Airway Exam Mallampati Score: Class II MO: full Neck: stiff Teeth: missing Dentures: no lower, no upper Anesthesia Pre-op A/P Labs Hematology Test 07/04/16 06:15 White Blood Count 11.1 K/UL (4.8-10.8) H Red Blood Count 4.62 M/UL (4.70-6.10) L Hemoglobin 13.9 G/DL (14.2-18.0) L Hematocrit 42.1 % (42.0-52.0) Mean Corpuscular Volume 91 FL (80-99) Mean Corpuscular Hemoglobin 30.0 PG (27.0-31.0) Mean Corpuscular Hemoglobin Concent 32.9 G/DL (32.0-36.0) Red Cell Distribution Width 11.9 % (11.6-14.8) Platelet Count 214 K/UL (150-450) Mean Platelet Volume 7.1 FL (6.5-10.1) Neutrophils (%) (Auto) 76.3 % (45.0-75.0) H Lymphocytes (%) (Auto) 10.8 % (20.0-45.0) L Monocytes (%) (Auto) 12.2 % (1.0-10.0) H Eosinophils (%) (Auto) 0.2 % (0.0-3.0) Basophils (%) (Auto) 0.5 % (0.0-2.0) Chemistry Test 07/04/16 06:15 Sodium Level 150 mEQ/L (135-145) H Potassium Level 5.0 mEQ/L (3.4-4.9) H Chloride Level 109 mEQ/L (98-107) H Carbon Dioxide Level 30 mEQ/L (20-30) Anion Gap 11 (5-15) Blood Urea Nitrogen 10 mg/dL (7-23) Creatinine 0.8 mg/dL (0.7-1.2) Estimat Glomerular Filtration Rate mL/min (>60) Glucose Level 124 mg/dL (74-106) H Calcium Level 9.8 mg/dL (8.6-10.2) Total Bilirubin 0.8 mg/dL (0.0-1.2) Aspartate Amino Transf (AST/SGOT) 52 U/L (5-40) H Alanine Aminotransferase (ALT/SGPT) 48 U/L (3-41) H Alkaline Phosphatase 87 U/L (40-129) Total Protein 7.4 g/dL (6.6-8.7) Albumin 4.1 g/dL (3.5-5.2) Globulin 3.3 g/dL Albumin/Globulin Ratio 1.2 (1.0-2.7) Lipase 23 U/L (< 60) Risk Assessment & Plan Assessment: ASA 3 Plan: GA with ETT Status Change Before Surgery: No Pre-Antibiotics Drug: Cefoxitin 1gr. Given Within 1 Hr of Incision: Yes Time Given: 12:20 PARAG MIRZA M.D. Jul 04, 2016 12:54
[2016-07-04] MEDS: D5 1/2NS 1,000 ML IV SCH ×2 (13:00→17:43)
[2016-07-04] MEDS ORDERED: DiphenhydrAMINE 50mg/ml Inj IVP PRN (13:00)
[2016-07-04] MEDS ORDERED: Ketorolac 30mg Inj IV PRN (13:00)
[2016-07-04] MEDS ORDERED: Hydromorphone 0.5mg/0.5ml inj IVP PRN ×2 (13:00→13:30)
[2016-07-04] MEDS ORDERED: Meperidine 25mg/ml Inj IV PRN (13:00)
[2016-07-04] MEDS ORDERED: Bupivacaine w/Epi 0.25% 30ml Vial INJ ONE (13:07)
[2016-07-04] MEDS ORDERED: D5 1/2NS w/KCl 20mEq 1,000 ML IV SCH (13:23)
--- NOTE | 2016-07-04 13:23 | Brief Operative Note ---
Immediate Post Operative Note Operative Note Pre-op Diagnosis: Small bowel obstruction Post-op Diagnosis: same as pre-op Surgeon: MD Kiran Roller [place]: none Anesthesiologist: Dr. Carvajal Anesthesia: general Complications: none Estimated Blood Loss: volume - 30ml Drains: none ALEXEY LACY Jul 04, 2016 13:23
[2016-07-04] MEDS ORDERED: Acetaminophen 650 MG SUPP RECTAL PRN (13:30)
[2016-07-04] MEDS ORDERED: Metoclopramide 10mg/2ml Inj IVP PRN (13:30)
--- NOTE | 2016-07-04 13:49 | Immediate Post-Op Evaluation ---
Immediate Post-Op Evalulation Immediate Post-Op Evalulation Procedure: Exploratory laparotomy Lysis of adhesions Date of Evaluation: Jul 04, 2016 Time of Evaluation: 13:48 IV Fluids: 1000 Blood Products: Albumin 250cc Estimated Blood Loss: min Urinary Output: 100 Blood Pressure Systolic: 140 Blood Pressure Diastolic: 85 Pulse Rate: 85 Respiratory Rate: 20 O2 Sat by Pulse Oximetry: 99 Temperature (Fahrenheit): 97.6 Pain Score (1-10): 2 Nausea: No Vomiting: No Complications none Patient Status: reacts, patent, extubated, none Hydration Status: adequate PARAG MIRZA M.D. Jul 04, 2016 13:49
--- NOTE | 2016-07-04 14:52 | Nephrology Progress Note ---
Assessment/Plan Problem List: (1) Abdominal pain (2) Elevated lipase (3) SBO (small bowel obstruction) (4) Hepatitis C Plan Will follow surg recs post surgery pain management continue IVF continue NPO will monitor pt's condition post surgery Subjective Subjective In surgery for exp lap Objective Objective Last 24 Hour Vital Signs Date Time Temp Pulse Resp B/P Pulse Ox O2 Delivery O2 Flow Rate FiO2 07/04/16 14:25 78 14 140/81 100 Nasal Cannula 3.0 07/04/16 14:10 78 12 136/84 100 Nasal Cannula 3.0 07/04/16 13:55 80 16 142/91 100 Nasal Cannula 3.0 07/04/16 13:49 85 20 99 07/04/16 13:44 83 14 138/90 100 Nasal Cannula 3.0 07/04/16 13:39 91 17 141/93 100 Simple Mask 6.0 07/04/16 13:34 97.9 97 32 138/93 100 Simple Mask 6.0 07/04/16 09:22 98.0 07/04/16 08:29 98.0 65 20 145/88 95 Room Air 07/04/16 04:00 98.1 61 19 153/88 97 Room Air 07/04/16 00:00 98.2 66 20 148/89 97 Room Air 07/03/16 20:00 98.4 65 21 150/84 98 Room Air 07/03/16 16:00 97.3 61 21 153/91 98 Room Air Intake and Output 07/03/16 07/04/16 19:00 07:00 Intake Total 1050 ml Output Total 150 ml 1850 ml Balance -150 ml -800 ml IV Total 1050 ml Gastric Drainage Total 150 ml 1850 ml # Voids 3 2 Laboratory Tests 07/04/16 06:15: White Blood Count 11.1H, Red Blood Count 4.62L, Hemoglobin 13.9L, Hematocrit 42.1, Mean Corpuscular Volume 91, Mean Corpuscular Hemoglobin 30.0, Mean Corpuscular Hemoglobin Concent 32.9, Red Cell Distribution Width 11.9, Platelet Count 214, Mean Platelet Volume 7.1, Neutrophils (%) (Auto) 76.3H, Lymphocytes ( %) (Auto) 10.8L, Monocytes (%) (Auto) 12.2H, Eosinophils (%) (Auto) 0.2, Basophils (%) (Auto) 0.5, Sodium Level 150H, Potassium Level 5.0H, Chloride Level 109H, Carbon Dioxide Level 30, Anion Gap 11, Blood Urea Nitrogen 10, Creatinine 0.8, Estimat Glomerular Filtration Rate , Glucose Level 124H, Calcium Level 9.8, Total Bilirubin 0.8, Aspartate Amino Transf (AST/SGOT) 52H, Alanine Aminotransferase (ALT/SGPT) 48H, Alkaline Phosphatase 87, Total Protein 7.4, Albumin 4.1, Globulin 3.3, Albumin/Globulin Ratio 1.2, Lipase 23 Height (Feet): 5 Height (Inches): 7.00 Weight (Pounds): 155 Alona Olivera N.P. Jul 04, 2016 14:52
--- NOTE | 2016-07-04 17:01 | Infectious Diseases Prog Note ---
Assessment/Plan Assessment/Plan ASSESSMENT: 70 y/o male with: Chronic HCV, on Harvoni since 06/28/15 Acute mild leukocytosis, afebrile Partial SBO SP ex-lap, DAVID 07/04 - op report pending h/o IVDA NKDA Full Code PLAN: ancef per SCIP resume Harvoni ( pt may take home meds ) when taking PO Monitor CBC, temperatures, panculture if febrile or worsening leukocytosis Monitor CMP Subjective Allergies: Coded Allergies: No Known Allergies (Unverified , 07/01/16) Subjective remains afebrile SP ex-lap - op report pending Objective Vital Signs Last 24 Hour Vital Signs Date Time Temp Pulse Resp B/P Pulse Ox O2 Delivery O2 Flow Rate FiO2 07/04/16 16:00 97.3 78 16 120/80 100 Nasal Cannula 2.0 07/04/16 14:40 97.8 79 19 138/87 100 Nasal Cannula 3.0 07/04/16 14:25 78 14 140/81 100 Nasal Cannula 3.0 07/04/16 14:10 78 12 136/84 100 Nasal Cannula 3.0 07/04/16 13:55 80 16 142/91 100 Nasal Cannula 3.0 07/04/16 13:49 85 20 99 07/04/16 13:44 83 14 138/90 100 Nasal Cannula 3.0 07/04/16 13:39 91 17 141/93 100 Simple Mask 6.0 07/04/16 13:34 97.9 97 32 138/93 100 Simple Mask 6.0 07/04/16 09:22 98.0 07/04/16 08:29 98.0 65 20 145/88 95 Room Air 07/04/16 04:00 98.1 61 19 153/88 97 Room Air 07/04/16 00:00 98.2 66 20 148/89 97 Room Air 07/03/16 20:00 98.4 65 21 150/84 98 Room Air Height (Feet): 5 Height (Inches): 7.00 Weight (Pounds): 155 General Appearance: no acute distress Respiratory/Chest: no respiratory distress Abdomen: hypoactive bowel sounds Laboratory Tests Test 07/04/16 06:15 White Blood Count 11.1 K/UL (4.8-10.8) H Red Blood Count 4.62 M/UL (4.70-6.10) L Hemoglobin 13.9 G/DL (14.2-18.0) L Hematocrit 42.1 % (42.0-52.0) Mean Corpuscular Volume 91 FL (80-99) Mean Corpuscular Hemoglobin 30.0 PG (27.0-31.0) Mean Corpuscular Hemoglobin Concent 32.9 G/DL (32.0-36.0) Red Cell Distribution Width 11.9 % (11.6-14.8) Platelet Count 214 K/UL (150-450) Mean Platelet Volume 7.1 FL (6.5-10.1) Neutrophils (%) (Auto) 76.3 % (45.0-75.0) H Lymphocytes (%) (Auto) 10.8 % (20.0-45.0) L Monocytes (%) (Auto) 12.2 % (1.0-10.0) H Eosinophils (%) (Auto) 0.2 % (0.0-3.0) Basophils (%) (Auto) 0.5 % (0.0-2.0) Sodium Level 150 mEQ/L (135-145) H Potassium Level 5.0 mEQ/L (3.4-4.9) H Chloride Level 109 mEQ/L (98-107) H Carbon Dioxide Level 30 mEQ/L (20-30) Anion Gap 11 (5-15) Blood Urea Nitrogen 10 mg/dL (7-23) Creatinine 0.8 mg/dL (0.7-1.2) Estimat Glomerular Filtration Rate mL/min (>60) Glucose Level 124 mg/dL (74-106) H Calcium Level 9.8 mg/dL (8.6-10.2) Total Bilirubin 0.8 mg/dL (0.0-1.2) Aspartate Amino Transf (AST/SGOT) 52 U/L (5-40) H Alanine Aminotransferase (ALT/SGPT) 48 U/L (3-41) H Alkaline Phosphatase 87 U/L (40-129) Total Protein 7.4 g/dL (6.6-8.7) Albumin 4.1 g/dL (3.5-5.2) Globulin 3.3 g/dL Albumin/Globulin Ratio 1.2 (1.0-2.7) Lipase 23 U/L (< 60) Current Medications Medications (Trade) Dose Ordered Sig/Chester Route PRN Reason Start Time Stop Time Status Last Admin Dose Admin Acetaminophen (Tylenol) 650 mg Q4H PRN RECTAL FEVER 07/04/16 13:30 08/03/16 13:29 UNV Cefazolin Sodium/ Dextrose (Ancef/D5W 50ml) 50 ml @ 100 mls/hr EVERY 8 HOURS IV 07/04/16 14:00 07/04/16 22:29 UNV Dextrose (Dextrose 50%) STAT PRN IV Hypoglycemia 07/02/16 09:30 08/01/16 09:29 Dextrose/ Electrolytes (D5 0.45%NS W/ KCl 20mEq) 1,000 ml @ 100 mls/hr Q10H IV 07/04/16 13:23 08/03/16 13:22 UNV Dextrose/Sodium Chloride 1,000 ml @ 75 mls/hr [id number] IV 07/04/16 13:00 08/03/16 12:59 Diphenhydramine HCl (Benadryl) 25 mg Q15M PRN IVP Itching 07/04/16 13:00 07/04/16 17:00 Enoxaparin Sodium (Lovenox) 30 mg DAILY SUBQ 07/05/16 09:00 08/04/16 08:59 UNV Hydromorphone HCl (Dilaudid) 0.5 mg Q15M PRN IVP Severe Pain (Pain Scale 7-10) 07/04/16 13:00 07/04/16 17:00 Hydromorphone HCl (Dilaudid) 1 mg Q3H PRN IVP pain score 4-6 07/04/16 13:30 07/11/16 13:29 UNV Hydromorphone HCl 0.5 mg 0.5 mg Q3H PRN IVP Pain Score 1-3 07/04/16 13:30 07/11/16 13:29 UNV Ketorolac Tromethamine (Toradol 30mg) 30 mg Q1H PRN IV Severe Breakthru Pain (>7) 07/04/16 13:00 07/04/16 17:00 Meperidine HCl 50 mg 50 mg Q15M PRN IV chills 07/04/16 13:00 07/04/16 17:00 Metoclopramide HCl (Reglan) 10 mg Q6H PRN IVP Nausea & Vomiting 07/04/16 13:30 08/03/16 13:29 UNV Metoclopramide HCl (Reglan) 10 mg Q8H IVP 07/02/16 09:15 08/01/16 09:14 07/04/16 08:52 Morphine Sulfate (Morphine Sulfate) 2 mg Q4H PRN IVP Severe Pain (Pain Scale 7-10) 07/02/16 09:30 07/09/16 09:29 07/04/16 08:52 Ondansetron HCl (Zofran) 4 mg Q1H PRN IVP Nausea & Vomiting 07/04/16 13:00 07/04/16 17:00 Ondansetron HCl (Zofran) 4 mg Q6H PRN IVP Nausea & Vomiting 07/04/16 13:30 08/03/16 13:29 UNV Ondansetron HCl (Zofran) 4 mg Q6H PRN IVP Nausea & Vomiting 07/02/16 09:30 08/01/16 09:29 07/03/16 13:07 Pantoprazole (Protonix) 40 mg DAILY IVP 07/05/16 09:00 08/04/16 08:59 UNV Pantoprazole (Protonix) 40 mg DAILY IVP 07/02/16 09:30 08/01/16 09:29 07/03/16 07:30 Patient Own Medication 1 ea 1 ea DAILY ORAL 07/03/16 09:00 08/02/16 08:59 07/03/16 09:44 Sodium Chloride (Sodium Chloride 1000ml bag) 1,000 ml @ 10 mls/hr Q24H IVLG 07/04/16 12:54 07/04/16 17:00 EMMANUEL MCCLOUD Jul 04, 2016 17:01
--- NOTE | 2016-07-04 21:58 | Operative Note - Dictated ---
DATE OF OPERATION: 07/04/2016 PREOPERATIVE DIAGNOSIS: Small bowel obstruction. POSTOPERATIVE DIAGNOSIS: Small bowel obstruction. OPERATION: 1. Exploratory laparotomy. 2. Lysis of the adhesion. 3. Enterorrhaphy. COMPLICATION: None. SURGEON: Lashon Acevedo M.D. OVEN TENDER BAGELS: None. ANESTHESIA: General with endotracheal tube. ANESTHESIOLOGIST: Brown Carvajal M.D. INDICATIONS: This is a 70-year-old, male, who presented to emergency room on 07/02/2016 for one-day history of abdominal pain and vomiting. Physical examination showed distended abdomen without any tenderness. CBC and UA were normal. CAT scan showed dilated small bowel loops and it was interpreted as partial small bowel obstruction. The patient was admitted to the hospital and was started on conservative treatment with IV fluid and NG suction, but the patient continued with distention and obstipation. Yesterday, a Gastrografin and small bowel followthrough was obtained last night which showed that the contrast went only snf in the small bowel. So this morning the another KUB was obtained, which did not show contrast in the colon and the KUB showed persistence of the dilated small bowel loops. So, the decision was made for the exploratory laparotomy. DESCRIPTION OF PROCEDURE: The patient was placed supine on the operating table and after general anesthesia with endotracheal tube, the abdomen was properly prepped and draped. A midline incision was given below the umbilicus and was carried sharply through the subcutaneous tissue, fascia, and peritoneum. The intra-abdominal cavity was entered and it was noticed that the patient had a combination of the distended and collapsed small bowel, which represented a complete small bowel obstruction. The small bowel was delivered in the wound and was run at the mid jejunum. It was noticed that the patient had adhesion of the two loops of the small bowel to each other and to the cecum, which has caused a complete obstruction at this area. After this area, the small bowel was completely collapsed. 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 The dilated small bowel was very thick showing the chronic obstruction. The adhesion of the small bowel in this area was very carefully and meticulously released, which caused small laceration of the seromuscular area, which is normal for doing this kind of surgery. After release of the adhesion, the small bowel was opened up and I was able to squeeze the small bowel fluid through the obstructed area. The content of the small bowel was mixed into the stomach to be suctioned by the NG tube and the small bowel was run again and the area of the seromuscular laceration was repaired with multiple sutures of 3-0 silk. The intraperitoneal cavity was thoroughly irrigated with antibiotic solution. Another exploration was performed and there was no complication or bleeding. The bowels were returned into the abdomen and the incision was approximated with running suture of 0 Vicryl for the peritoneum and posterior fascia, #1 Prolene for the fascia and eduardo for the skin. The incision was infiltrated with total of 30 mL of Marcaine 0.25% for the postoperative pain control. The patient tolerated the procedure very well and was transferred to the recovery room in stable condition and extubated. The sponge and needle count were correct. Estimated blood loss was 30 mL. Condition of the patient at the end of the procedure was stable. Lashon Acevedo M.D. DR: PAMELA JOB#: [id number] CC:
[2016-07-05] VITALS: BP 120/81
[2016-07-05] MEDS: HYDROmorphone 1mg/ml Carpuject IVP PRN ×6 (01:46→20:50)
[2016-07-05 04:00] VITALS: BP 112/70
[2016-07-05 07:06] LABS: BASOPHILS % (AUTO) 1.1 % (0.0-2.0); EOSINOPHILS % (AUTO) 0.8 % (0.0-3.0); MEAN CORPUSCULAR HEMOGLOBIN 29.8 PG (27.0-31.0); MEAN CORPUSCULAR HGB CONC 32.4 G/DL (32.0-36.0); MEAN CORPUSCULAR VOLUME 92 FL (80-99); MEAN PLATELET VOLUME 7.7 FL (6.5-10.1); MONOCYTES % (AUTO) 12.8 % (1.0-10.0); NEUTROPHILS % (AUTO) 71.3 % (45.0-75.0); PLATELET COUNT 210 K/UL (150-450); RED BLOOD COUNT 4.45 M/UL (4.70-6.10); RED CELL DISTRIBUTION WIDTH 12.4 % (11.6-14.8)
[2016-07-05 07:17] LABS: ALANINE AMINOTRANSFERASE 35 U/L (3-41); ALBUMIN/GLOBULIN RATIO 1.1 (1.0-2.7); ANION GAP 14 (5-15); ASPARTATE AMINO TRANSFERASE 40 U/L (5-40); CALCIUM 9.4 mg/dL (8.6-10.2); CARBON DIOXIDE 28 mEQ/L (20-30); CHLORIDE 108 mEQ/L (98-107); CREATININE 0.9 mg/dL (0.7-1.2); HEMOLYSIS 3; POTASSIUM 4.5 mEQ/L (3.4-4.9); SODIUM 150 mEQ/L (135-145); TOTAL PROTEIN 6.8 g/dL (6.6-8.7)
--- NOTE | 2016-07-05 07:26 | 48 Hour Post Anesthesia Eval ---
Post Anesthesia Evaluation Procedure: Exploratory laparotomy Lysis of adhesions Date of Evaluation: Jul 05, 2016 Time of Evaluation: 07:05 Blood Pressure Systolic: 112 0: 70 Pulse Rate: 84 Respiratory Rate: 18 Temperature (Fahrenheit): 98.8 O2 Sat by Pulse Oximetry: 98 Airway: patent Nausea: No Vomiting: No Pain Intensity: 3 Hydration Status: adequate Cardiopulmonary Status: Stable Mental Status/LOC: patient returned to baseline Follow-up Care/Observations: 0 Post-Anesthesia Complications: 0 Follow-up care needed: N/A Eliecer Lozoya MD Jul 05, 2016 07:26
[2016-07-05] MEDS: HARVONI ORAL SCH (07:37)
[2016-07-05 08:00] VITALS: BP 134/74
[2016-07-05 08:32] LABS: BILIRUBIN,DIRECT 0.8 mg/dL (0.1-0.3)
[2016-07-05] MEDS: Enoxaparin 40mg Inj SUBQ SCH (09:00)
[2016-07-05] MEDS: Pantoprazole Inj IVP SCH (09:00)
--- NOTE | 2016-07-05 12:26 | Nephrology Progress Note ---
Assessment/Plan Problem List: (1) Abdominal pain (2) Elevated lipase (3) SBO (small bowel obstruction) (4) Hepatitis C (5) Hypernatremia (6) Status post exploratory laparotomy Plan Will follow surg recs post surgery pain management Change IVF to D5W continue NPO NGT-LIS Self removal of pat catheter - monitor urine output AM labs Subjective Constitutional: Denies: chills, diaphoresis, fever, malaise, no symptoms, other , weakness Genitourinary: Reports: hematuria - slight hematuria, pulled out his pat catheter Neurologic/Psychiatric: Denies: anxiety, depressed, emotional problems, headache, no symptoms, numbness, other, paresthesia, pre-existing deficit, seizure, tingling, tremors, weakness Subjective In bed, states that he wants some pain med, stated also that he pulled out his pat catheter because he didn't think he needed it and that he did not consent to having it put it. Family at bedside Objective Objective Last 24 Hour Vital Signs Date Time Temp Pulse Resp B/P Pulse Ox O2 Delivery O2 Flow Rate FiO2 07/05/16 09:42 98.8 07/05/16 08:00 98.8 86 18 134/74 97 Room Air 07/05/16 07:26 84 18 98 07/05/16 04:00 98.8 84 18 112/70 98 Room Air 07/05/16 00:00 97.8 81 18 120/81 98 Room Air 07/04/16 22:41 99.9 07/04/16 22:02 99.9 07/04/16 20:00 100.2 89 16 133/86 100 Nasal Cannula 2.0 07/04/16 16:00 97.3 78 16 120/80 100 Nasal Cannula 2.0 07/04/16 14:40 97.8 79 19 138/87 100 Nasal Cannula 3.0 07/04/16 14:25 78 14 140/81 100 Nasal Cannula 3.0 07/04/16 14:10 78 12 136/84 100 Nasal Cannula 3.0 07/04/16 13:55 80 16 142/91 100 Nasal Cannula 3.0 07/04/16 13:49 85 20 99 07/04/16 13:44 83 14 138/90 100 Nasal Cannula 3.0 07/04/16 13:39 91 17 141/93 100 Simple Mask 6.0 07/04/16 13:34 97.9 97 32 138/93 100 Simple Mask 6.0 Intake and Output 07/04/16 07/05/16 19:00 07:00 Intake Total 1100 ml 660 ml Output Total 290 ml 100 ml Balance 810 ml 560 ml IV Total 1100 ml 660 ml Output Urine Total 130 ml Gastric Drainage Total 150 ml 100 ml Estimated Blood Loss 10 ml # Voids 1 Laboratory Tests 07/05/16 06:25: White Blood Count 12.0H, Red Blood Count 4.45L, Hemoglobin 13.3L, Hematocrit 40.9L, Mean Corpuscular Volume 92, Mean Corpuscular Hemoglobin 29.8, Mean Corpuscular Hemoglobin Concent 32.4, Red Cell Distribution Width 12.4, Platelet Count 210, Mean Platelet Volume 7.7, Neutrophils (%) (Auto) 71.3, Lymphocytes (% ) (Auto) 14.0L, Monocytes (%) (Auto) 12.8H, Eosinophils (%) (Auto) 0.8, Basophils (%) (Auto) 1.1, Sodium Level 150H, Potassium Level 4.5, Chloride Level 108H, Carbon Dioxide Level 28, Anion Gap 14, Blood Urea Nitrogen 13, Creatinine 0.9, Estimat Glomerular Filtration Rate , Glucose Level 120H, Calcium Level 9.4, Total Bilirubin 1.5H, Direct Bilirubin 0.8H, Aspartate Amino Transf (AST/SGOT) 40, Alanine Aminotransferase (ALT/SGPT) 35, Alkaline Phosphatase 69, Total Protein 6.8, Albumin 3.6, Globulin 3.2, Albumin/Globulin Ratio 1.1 Height (Feet): 5 Height (Inches): 7.00 Weight (Pounds): 155 General Appearance: no apparent distress, alert EENT: PERRL/EOMI, normal ENT inspection Neck: normal alignment, supple, normal inspection Cardiovascular: normal rate, regular rhythm, no JVD Respiratory/Chest: lungs clear, normal breath sounds, no respiratory distress Abdomen: soft, hypoactive bowel sounds - s/p exp lap, tender Extremities: normal range of motion, non-tender, normal inspection, no calf tenderness Neurologic: alert, oriented x 3, responsive Alona Olivera N.P. Jul 05, 2016 12:26
--- NOTE | 2016-07-05 13:26 | Consultation ---
History of Present Illness General Date patient seen: Jul 05, 2016 Time patient seen: 13:24 Chief Complaint: Abdominal Pain Referring physician: KYLEE HANSON Reason for Consultation: ABDOMINAL PAIN / SBO Present Illness HPI After ex-lap last night patient pulled own pat out. Refused new one. Has voided fine since then. Had mild blood and clots but feeling well. No complaints currently. Allergies: Coded Allergies: No Known Allergies (Unverified , 07/01/16) Medication History Miscellaneous Medications Ledipasvir/Sofosbuvir (Harvoni 90-400 mg Tablet), 1 EACH PO, (Reported) Patient History History Provided By: Patient, Family Member Healthcare decision maker Resuscitation status Advanced Directive on File Review of Systems Constitutional: Denies: chills, fever, malaise, no symptoms, other, see HPI, sweats, weakness Eye: Denies: acuity changes, blurred vision, discharge, double vision, eye pain , no symptoms, nose congestion, nose pain, other, see HPI, tearing ENT: Denies: ear discharge, ear pain, hearing loss, mouth pain, nasal discharge , no symptoms, nose congestion, nose pain, other, see HPI, throat pain, throat swelling Respiratory: Denies: JENSEN, cough, no symptoms, orthopnea, other, see HPI, shortness of breath, sputum, stridor, wheezing Cardiovascular: Denies: PND, chest pain, edema, no symptoms, other, palpitations, see HPI, syncope Gastrointestinal: Reports: abdominal pain Genitourinary: Denies: discharge, dysuria, frequency, hematuria, incontinence, no symptoms, other, pain, retention, see HPI, urgency, vag bleed/dc Musculoskeletal: Denies: back pain, gout, joint pain, joint swelling, muscle pain, muscle stiffness, no symptoms, other, see HPI Skin: Denies: change in color, change in hair/nails, dryness, lesions, no symptoms, other, rash, see HPI Psychiatric: Denies: HI, SI, anxiety, depressed feelings, emotional problems, hallucinations, no symptoms, other, prior hx, see HPI Neurological: Denies: dizziness, focal weakness, headache, no symptoms, numbness, other, paresthesia, see HPI, seizure, syncope, tingling, tremors Endocrine: Denies: excessive sweating, flushing, increased thirst, increased urine, intolerance to temperature, no symptoms, other, see HPI, unexplained weight loss Hematologic/Lymphatic: Denies: anemia, blood clots, diathesis, easy bleeding, easy bruising, no symptoms, other, see HPI, swollen glands Physical Exam General Appearance: WD/WN Respiratory/Chest: lungs clear Abdomen: soft, tender Genitourinary/Rectal: normal genital exam Last 24 Hour Vital Signs Date Time Temp Pulse Resp B/P Pulse Ox O2 Delivery O2 Flow Rate FiO2 07/05/16 09:42 98.8 07/05/16 08:00 98.8 86 18 134/74 97 Room Air 07/05/16 07:26 84 18 98 07/05/16 04:00 98.8 84 18 112/70 98 Room Air 07/05/16 00:00 97.8 81 18 120/81 98 Room Air 07/04/16 22:41 99.9 07/04/16 22:02 99.9 07/04/16 20:00 100.2 89 16 133/86 100 Nasal Cannula 2.0 07/04/16 16:00 97.3 78 16 120/80 100 Nasal Cannula 2.0 07/04/16 14:40 97.8 79 19 138/87 100 Nasal Cannula 3.0 07/04/16 14:25 78 14 140/81 100 Nasal Cannula 3.0 07/04/16 14:10 78 12 136/84 100 Nasal Cannula 3.0 07/04/16 13:55 80 16 142/91 100 Nasal Cannula 3.0 07/04/16 13:49 85 20 99 07/04/16 13:44 83 14 138/90 100 Nasal Cannula 3.0 07/04/16 13:39 91 17 141/93 100 Simple Mask 6.0 07/04/16 13:34 97.9 97 32 138/93 100 Simple Mask 6.0 Intake and Output 07/04/16 07/05/16 19:00 07:00 Intake Total 1100 ml 660 ml Output Total 290 ml 100 ml Balance 810 ml 560 ml IV Total 1100 ml 660 ml Output Urine Total 130 ml Gastric Drainage Total 150 ml 100 ml Estimated Blood Loss 10 ml # Voids 1 Laboratory Tests Test 07/05/16 06:25 White Blood Count 12.0 K/UL (4.8-10.8) H Red Blood Count 4.45 M/UL (4.70-6.10) L Hemoglobin 13.3 G/DL (14.2-18.0) L Hematocrit 40.9 % (42.0-52.0) L Mean Corpuscular Volume 92 FL (80-99) Mean Corpuscular Hemoglobin 29.8 PG (27.0-31.0) Mean Corpuscular Hemoglobin Concent 32.4 G/DL (32.0-36.0) Red Cell Distribution Width 12.4 % (11.6-14.8) Platelet Count 210 K/UL (150-450) Mean Platelet Volume 7.7 FL (6.5-10.1) Neutrophils (%) (Auto) 71.3 % (45.0-75.0) Lymphocytes (%) (Auto) 14.0 % (20.0-45.0) L Monocytes (%) (Auto) 12.8 % (1.0-10.0) H Eosinophils (%) (Auto) 0.8 % (0.0-3.0) Basophils (%) (Auto) 1.1 % (0.0-2.0) Sodium Level 150 mEQ/L (135-145) H Potassium Level 4.5 mEQ/L (3.4-4.9) Chloride Level 108 mEQ/L (98-107) H Carbon Dioxide Level 28 mEQ/L (20-30) Anion Gap 14 (5-15) Blood Urea Nitrogen 13 mg/dL (7-23) Creatinine 0.9 mg/dL (0.7-1.2) Estimat Glomerular Filtration Rate mL/min (>60) Glucose Level 120 mg/dL (74-106) H Calcium Level 9.4 mg/dL (8.6-10.2) Total Bilirubin 1.5 mg/dL (0.0-1.2) H Direct Bilirubin 0.8 mg/dL (0.1-0.3) H Aspartate Amino Transf (AST/SGOT) 40 U/L (5-40) Alanine Aminotransferase (ALT/SGPT) 35 U/L (3-41) Alkaline Phosphatase 69 U/L (40-129) Total Protein 6.8 g/dL (6.6-8.7) Albumin 3.6 g/dL (3.5-5.2) Globulin 3.2 g/dL Albumin/Globulin Ratio 1.1 (1.0-2.7) Height (Feet): 5 Height (Inches): 7.00 Weight (Pounds): 155 Medications Current Medications Medications (Trade) Dose Ordered Sig/Chester Route PRN Reason Start Time Stop Time Status Last Admin Dose Admin Acetaminophen (Tylenol) 650 mg Q4H PRN RECTAL FEVER 07/04/16 13:30 08/03/16 13:29 07/04/16 21:32 Dextrose (D5W 1000ml) 1,000 ml @ 75 mls/hr [id number] IV 07/05/16 13:00 08/04/16 12:59 07/05/16 13:15 Dextrose (Dextrose 50%) STAT PRN IV Hypoglycemia 07/02/16 09:30 08/01/16 09:29 Enoxaparin Sodium (Lovenox) 40 mg DAILY SUBQ 07/05/16 09:00 08/04/16 08:59 Hydromorphone HCl (Dilaudid) 0.5 mg Q3H PRN IVP Pain Score 1-3 07/04/16 13:30 07/11/16 13:29 07/04/16 21:23 Hydromorphone HCl (Dilaudid) 1 mg Q3H PRN IVP pain score 4-6 07/04/16 13:30 07/11/16 13:29 07/05/16 13:11 Metoclopramide HCl (Reglan) 10 mg Q6H PRN IVP Nausea & Vomiting 07/04/16 13:30 08/03/16 13:29 Ondansetron HCl (Zofran) 4 mg Q6H PRN IVP Nausea & Vomiting 07/04/16 13:30 08/03/16 13:29 Pantoprazole 40 mg 40 mg DAILY IVP 07/05/16 09:00 08/04/16 08:59 Patient Own Medication (Patient's Own Med) 1 ea DAILY ORAL 07/03/16 09:00 08/02/16 08:59 07/03/16 09:44 Assessment/Plan Status: stable Assessment/Plan Traumatic self removal of pat. thankfully patient is voiding fine. Ins and Outs are being recorded. Patient does not want a new pat. As long as he voids well and does not haves significant clots, agree with leaving catheter out. 1. no further follow up Chang Lara M.D. Jul 05, 2016 13:26
--- NOTE | 2016-07-05 15:16 | General Surgery Progress Note ---
General Surgery-Progress Note Subjective Symptoms: improved Objective Last 24 Hour Vital Signs Date Time Temp Pulse Resp B/P Pulse Ox O2 Delivery O2 Flow Rate FiO2 07/05/16 13:41 98.8 07/05/16 08:00 98.8 86 18 134/74 97 Room Air 07/05/16 07:26 84 18 98 07/05/16 04:00 98.8 84 18 112/70 98 Room Air 07/05/16 00:00 97.8 81 18 120/81 98 Room Air 07/04/16 22:41 99.9 07/04/16 22:02 99.9 07/04/16 20:00 100.2 89 16 133/86 100 Nasal Cannula 2.0 07/04/16 16:00 97.3 78 16 120/80 100 Nasal Cannula 2.0 I&O Intake and Output 07/04/16 07/05/16 19:00 07:00 Intake Total 1100 ml 660 ml Output Total 290 ml 100 ml Balance 810 ml 560 ml IV Total 1100 ml 660 ml Output Urine Total 130 ml Gastric Drainage Total 150 ml 100 ml Estimated Blood Loss 10 ml # Voids 1 Dressing: dry Drains: none Respiratory: clear Abdomen: distended, tenderness, absent bowel sounds Extremities: no edema, no tenderness Laboratory Tests Test 07/05/16 06:25 White Blood Count 12.0 K/UL (4.8-10.8) H Red Blood Count 4.45 M/UL (4.70-6.10) L Hemoglobin 13.3 G/DL (14.2-18.0) L Hematocrit 40.9 % (42.0-52.0) L Mean Corpuscular Volume 92 FL (80-99) Mean Corpuscular Hemoglobin 29.8 PG (27.0-31.0) Mean Corpuscular Hemoglobin Concent 32.4 G/DL (32.0-36.0) Red Cell Distribution Width 12.4 % (11.6-14.8) Platelet Count 210 K/UL (150-450) Mean Platelet Volume 7.7 FL (6.5-10.1) Neutrophils (%) (Auto) 71.3 % (45.0-75.0) Lymphocytes (%) (Auto) 14.0 % (20.0-45.0) L Monocytes (%) (Auto) 12.8 % (1.0-10.0) H Eosinophils (%) (Auto) 0.8 % (0.0-3.0) Basophils (%) (Auto) 1.1 % (0.0-2.0) Sodium Level 150 mEQ/L (135-145) H Potassium Level 4.5 mEQ/L (3.4-4.9) Chloride Level 108 mEQ/L (98-107) H Carbon Dioxide Level 28 mEQ/L (20-30) Anion Gap 14 (5-15) Blood Urea Nitrogen 13 mg/dL (7-23) Creatinine 0.9 mg/dL (0.7-1.2) Estimat Glomerular Filtration Rate mL/min (>60) Glucose Level 120 mg/dL (74-106) H Calcium Level 9.4 mg/dL (8.6-10.2) Total Bilirubin 1.5 mg/dL (0.0-1.2) H Direct Bilirubin 0.8 mg/dL (0.1-0.3) H Aspartate Amino Transf (AST/SGOT) 40 U/L (5-40) Alanine Aminotransferase (ALT/SGPT) 35 U/L (3-41) Alkaline Phosphatase 69 U/L (40-129) Total Protein 6.8 g/dL (6.6-8.7) Albumin 3.6 g/dL (3.5-5.2) Globulin 3.2 g/dL Albumin/Globulin Ratio 1.1 (1.0-2.7) Assessment Additional Comments S/P SBO Plan Additional Comments continue as before ALEXEY LACY Jul 05, 2016 15:16
--- NOTE | 2016-07-05 15:39 | GI Progress Note ---
Assessment/Plan Problems: (1) Elevated lipase ICD Codes: R74.8 - Abnormal levels of other serum enzymes SNOMED: 641160629 (2) Abdominal pain ICD Codes: R10.9 - Unspecified abdominal pain SNOMED: 82109714 (3) Partial small bowel obstruction ICD Codes: K56.69 - Other intestinal obstruction SNOMED: 152868174 (4) Hepatitis C ICD Codes: B19.20 - Unspecified viral hepatitis C without hepatic coma SNOMED: 98022584 Qualifiers: Status: stable Status Narrative Discussed with Dr. Leach. Assessment/Plan f/u surgical recs s/p ex-lap with adhesion lysis NGTF to LCIS dietary per surgical ppi fu labs outpatient Hep C tx Subjective Gastrointestinal/Abdominal: Reports: no symptoms Subjective c/o thirst Objective Last 24 Hour Vital Signs Date Time Temp Pulse Resp B/P Pulse Ox O2 Delivery O2 Flow Rate FiO2 07/05/16 13:41 98.8 07/05/16 08:00 98.8 86 18 134/74 97 Room Air 07/05/16 07:26 84 18 98 07/05/16 04:00 98.8 84 18 112/70 98 Room Air 07/05/16 00:00 97.8 81 18 120/81 98 Room Air 07/04/16 22:41 99.9 07/04/16 22:02 99.9 07/04/16 20:00 100.2 89 16 133/86 100 Nasal Cannula 2.0 07/04/16 16:00 97.3 78 16 120/80 100 Nasal Cannula 2.0 Intake and Output 07/04/16 07/05/16 19:00 07:00 Intake Total 1100 ml 660 ml Output Total 290 ml 100 ml Balance 810 ml 560 ml IV Total 1100 ml 660 ml Output Urine Total 130 ml Gastric Drainage Total 150 ml 100 ml Estimated Blood Loss 10 ml # Voids 1 Laboratory Tests Test 07/05/16 06:25 White Blood Count 12.0 K/UL (4.8-10.8) H Red Blood Count 4.45 M/UL (4.70-6.10) L Hemoglobin 13.3 G/DL (14.2-18.0) L Hematocrit 40.9 % (42.0-52.0) L Mean Corpuscular Volume 92 FL (80-99) Mean Corpuscular Hemoglobin 29.8 PG (27.0-31.0) Mean Corpuscular Hemoglobin Concent 32.4 G/DL (32.0-36.0) Red Cell Distribution Width 12.4 % (11.6-14.8) Platelet Count 210 K/UL (150-450) Mean Platelet Volume 7.7 FL (6.5-10.1) Neutrophils (%) (Auto) 71.3 % (45.0-75.0) Lymphocytes (%) (Auto) 14.0 % (20.0-45.0) L Monocytes (%) (Auto) 12.8 % (1.0-10.0) H Eosinophils (%) (Auto) 0.8 % (0.0-3.0) Basophils (%) (Auto) 1.1 % (0.0-2.0) Sodium Level 150 mEQ/L (135-145) H Potassium Level 4.5 mEQ/L (3.4-4.9) Chloride Level 108 mEQ/L (98-107) H Carbon Dioxide Level 28 mEQ/L (20-30) Anion Gap 14 (5-15) Blood Urea Nitrogen 13 mg/dL (7-23) Creatinine 0.9 mg/dL (0.7-1.2) Estimat Glomerular Filtration Rate mL/min (>60) Glucose Level 120 mg/dL (74-106) H Calcium Level 9.4 mg/dL (8.6-10.2) Total Bilirubin 1.5 mg/dL (0.0-1.2) H Direct Bilirubin 0.8 mg/dL (0.1-0.3) H Aspartate Amino Transf (AST/SGOT) 40 U/L (5-40) Alanine Aminotransferase (ALT/SGPT) 35 U/L (3-41) Alkaline Phosphatase 69 U/L (40-129) Total Protein 6.8 g/dL (6.6-8.7) Albumin 3.6 g/dL (3.5-5.2) Globulin 3.2 g/dL Albumin/Globulin Ratio 1.1 (1.0-2.7) Height (Feet): 5 Height (Inches): 7.00 Weight (Pounds): 155 General Appearance: alert Cardiovascular: normal rate Respiratory/Chest: normal breath sounds, no respiratory distress Abdominal Exam: soft, incision site - ex-lap Objective DATE OF OPERATION: 07/04/2016 PREOPERATIVE DIAGNOSIS: Small bowel obstruction. POSTOPERATIVE DIAGNOSIS: Small bowel obstruction. OPERATION: 1. Exploratory laparotomy. 2. Lysis of the adhesion. 3. Enterorrhaphy. SURGEON: Lashon Acevedo M.D. ANESTHESIOLOGIST: Brown Carvajal M.D. INDICATIONS: This is a 70-year-old, male, who presented to emergency room on 07/02/2016 for one-day history of abdominal pain and vomiting. Physical examination showed distended abdomen without any tenderness. CBC and UA were normal. CAT scan showed dilated small bowel loops and it was interpreted as partial small bowel obstruction. The patient was admitted to the hospital and was started on conservative treatment with IV fluid and NG suction, but the patient continued with distention and obstipation. Yesterday, a Gastrografin and small bowel followthrough was obtained last night which showed that the contrast went only longterm in the small bowel. So this morning the another KUB was obtained, which did not show contrast in the colon and the KUB showed persistence of the dilated small bowel loops. So, the decision was made for the exploratory laparotomy. Alma Encinas N.P. Jul 05, 2016 15:39
[2016-07-05 16:07] VITALS: BP 128/82
--- NOTE | 2016-07-05 16:26 | Infectious Diseases Prog Note ---
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 CBC, temperatures Monitor CMP Subjective Allergies: Coded Allergies: No Known Allergies (Unverified , 07/01/16) Subjective low grade fever, post-op leukocytosis pain controlled Objective Vital Signs Last 24 Hour Vital Signs Date Time Temp Pulse Resp B/P Pulse Ox O2 Delivery O2 Flow Rate FiO2 07/05/16 16:07 98.0 69 20 128/82 96 Room Air 07/05/16 13:41 98.8 07/05/16 08:00 98.8 86 18 134/74 97 Room Air 07/05/16 07:26 84 18 98 07/05/16 04:00 98.8 84 18 112/70 98 Room Air 07/05/16 00:00 97.8 81 18 120/81 98 Room Air 07/04/16 22:41 99.9 07/04/16 22:02 99.9 07/04/16 20:00 100.2 89 16 133/86 100 Nasal Cannula 2.0 Height (Feet): 5 Height (Inches): 7.00 Weight (Pounds): 155 General Appearance: no acute distress Respiratory/Chest: no respiratory distress Cardiovascular: normal rate, regular rhythm Abdomen: normal bowel sounds, soft, non tender, non distended, other - incisional pain, erythema, bleeding Laboratory Tests Test 07/05/16 06:25 White Blood Count 12.0 K/UL (4.8-10.8) H Red Blood Count 4.45 M/UL (4.70-6.10) L Hemoglobin 13.3 G/DL (14.2-18.0) L Hematocrit 40.9 % (42.0-52.0) L Mean Corpuscular Volume 92 FL (80-99) Mean Corpuscular Hemoglobin 29.8 PG (27.0-31.0) Mean Corpuscular Hemoglobin Concent 32.4 G/DL (32.0-36.0) Red Cell Distribution Width 12.4 % (11.6-14.8) Platelet Count 210 K/UL (150-450) Mean Platelet Volume 7.7 FL (6.5-10.1) Neutrophils (%) (Auto) 71.3 % (45.0-75.0) Lymphocytes (%) (Auto) 14.0 % (20.0-45.0) L Monocytes (%) (Auto) 12.8 % (1.0-10.0) H Eosinophils (%) (Auto) 0.8 % (0.0-3.0) Basophils (%) (Auto) 1.1 % (0.0-2.0) Sodium Level 150 mEQ/L (135-145) H Potassium Level 4.5 mEQ/L (3.4-4.9) Chloride Level 108 mEQ/L (98-107) H Carbon Dioxide Level 28 mEQ/L (20-30) Anion Gap 14 (5-15) Blood Urea Nitrogen 13 mg/dL (7-23) Creatinine 0.9 mg/dL (0.7-1.2) Estimat Glomerular Filtration Rate mL/min (>60) Glucose Level 120 mg/dL (74-106) H Calcium Level 9.4 mg/dL (8.6-10.2) Total Bilirubin 1.5 mg/dL (0.0-1.2) H Direct Bilirubin 0.8 mg/dL (0.1-0.3) H Aspartate Amino Transf (AST/SGOT) 40 U/L (5-40) Alanine Aminotransferase (ALT/SGPT) 35 U/L (3-41) Alkaline Phosphatase 69 U/L (40-129) Total Protein 6.8 g/dL (6.6-8.7) Albumin 3.6 g/dL (3.5-5.2) Globulin 3.2 g/dL Albumin/Globulin Ratio 1.1 (1.0-2.7) Current Medications Medications (Trade) Dose Ordered Sig/Chester Route PRN Reason Start Time Stop Time Status Last Admin Dose Admin Acetaminophen (Tylenol) 650 mg Q4H PRN RECTAL FEVER 07/04/16 13:30 08/03/16 13:29 07/04/16 21:32 Dextrose (D5W 1000ml) 1,000 ml @ 75 mls/hr [id number] IV 07/05/16 13:00 08/04/16 12:59 07/05/16 13:15 Dextrose (Dextrose 50%) STAT PRN IV Hypoglycemia 07/02/16 09:30 08/01/16 09:29 Enoxaparin Sodium (Lovenox) 40 mg DAILY SUBQ 07/05/16 09:00 08/04/16 08:59 Hydromorphone HCl (Dilaudid) 0.5 mg Q3H PRN IVP Pain Score 1-3 07/04/16 13:30 07/11/16 13:29 07/04/16 21:23 Hydromorphone HCl (Dilaudid) 1 mg Q3H PRN IVP pain score 4-6 07/04/16 13:30 07/11/16 13:29 07/05/16 13:11 Metoclopramide HCl (Reglan) 10 mg Q6H PRN IVP Nausea & Vomiting 07/04/16 13:30 08/03/16 13:29 Ondansetron HCl (Zofran) 4 mg Q6H PRN IVP Nausea & Vomiting 07/04/16 13:30 08/03/16 13:29 Pantoprazole 40 mg 40 mg DAILY IVP 07/05/16 09:00 08/04/16 08:59 Patient Own Medication (Patient's Own Med) 1 ea DAILY ORAL 07/03/16 09:00 08/02/16 08:59 07/03/16 09:44 EMMANUEL MCCLOUD Jul 05, 2016 16:26
[2016-07-05] MEDS ORDERED: D5 1/2NS 1000ml IV ONE (18:39)
[2016-07-05] MEDS ORDERED: Tubing IV Secondary IV ONE (18:39)
[2016-07-05] MEDS: Vancomycin 1.5 GM in D5W 300 ML IVPB SCH (19:43)
[2016-07-05 20:00] VITALS: BP 125/80
[2016-07-06] VITALS (7 sets, daily range): BP systolic 122–136; BP diastolic 70–91
[2016-07-06 00:14] LABS: APPEARANCE,URINE SLIGHTLY CLOUDY; KETONES,URINE 1+ (NEGATIVE); LEUKOCYTE ESTERASE ,URINE 3+ (NEGATIVE); NITRITE,URINE POSITIVE (NEGATIVE); PH,URINE 5 (4.5-8.0); PROTEIN,URINE 3+ (NEGATIVE); UROBILINOGEN,URINE 1 MG/DL (0.0-1.0)
[2016-07-06 00:48] LABS: RBC,URINE TNTC /HPF (0 - 0)
[2016-07-06 00:49] LABS: BACTERIA,URINE MODERATE /HPF; ICTOTEST POSITIVE; SQUAMOUS EPITHELIAL CELL,UR FEW /LPF (NONE/OCC)
[2016-07-06] MEDS ORDERED: Zosyn 3.375gm inj ONE (04:49)
[2016-07-06] MEDS: HYDROmorphone 1mg/ml Carpuject IVP PRN ×4 (05:42→21:19)
[2016-07-06 07:51] LABS: BASOPHILS % (AUTO) 1.5 % (0.0-2.0); EOSINOPHILS % (AUTO) 3.4 % (0.0-3.0); MEAN CORPUSCULAR HEMOGLOBIN 30.3 PG (27.0-31.0); MEAN CORPUSCULAR HGB CONC 34.7 G/DL (32.0-36.0); MEAN CORPUSCULAR VOLUME 87 FL (80-99); MEAN PLATELET VOLUME 7.3 FL (6.5-10.1); MONOCYTES % (AUTO) 11.6 % (1.0-10.0); NEUTROPHILS % (AUTO) 66.6 % (45.0-75.0); PLATELET COUNT 161 K/UL (150-450); RED BLOOD COUNT 3.83 M/UL (4.70-6.10); RED CELL DISTRIBUTION WIDTH 11.9 % (11.6-14.8); WHITE BLOOD COUNT 8.7 K/UL (4.8-10.8)
[2016-07-06 07:56] LABS: ANION GAP 16 (5-15); CARBON DIOXIDE 24 mEQ/L (20-30); CHLORIDE 102 mEQ/L (98-107); CREATININE 0.7 mg/dL (0.7-1.2); HEMOLYSIS 2; POTASSIUM 3.5 mEQ/L (3.4-4.9); SODIUM 142 mEQ/L (135-145)
[2016-07-06] MEDS: Pantoprazole Inj IVP SCH (08:54)
[2016-07-06] MEDS: HARVONI ORAL SCH (08:55)
[2016-07-06] MEDS: Enoxaparin 40mg Inj SUBQ SCH (08:57)
--- NOTE | 2016-07-06 14:52 | GI Progress Note ---
Assessment/Plan Problems: (1) Elevated lipase ICD Codes: R74.8 - Abnormal levels of other serum enzymes SNOMED: 277711071 (2) Abdominal pain ICD Codes: R10.9 - Unspecified abdominal pain SNOMED: 17292398 (3) Partial small bowel obstruction ICD Codes: K56.69 - Other intestinal obstruction SNOMED: 579684347 (4) Hepatitis C ICD Codes: B19.20 - Unspecified viral hepatitis C without hepatic coma SNOMED: 24498869 Qualifiers: (5) Status post exploratory laparotomy ICD Codes: Z98.890 - Other specified postprocedural states SNOMED: 23637561, 22175862, 827768530 Status: progressing Status Narrative Discussed with Dr. Leach. Assessment/Plan f/u surgical recs s/p ex-lap with adhesion lysis dietary per surgical NGTF to LCIS ppi fu labs outpatient Hep C tx Subjective Gastrointestinal/Abdominal: Reports: no symptoms Subjective hunger Objective Last 24 Hour Vital Signs Date Time Temp Pulse Resp B/P Pulse Ox O2 Delivery O2 Flow Rate FiO2 07/06/16 12:14 98.4 65 20 126/70 96 Room Air 07/06/16 08:19 98.0 68 20 122/75 96 Room Air 07/06/16 06:12 97.8 07/06/16 04:00 97.8 84 18 126/78 91 Room Air 07/06/16 00:00 97.9 89 18 130/81 90 Room Air 07/05/16 20:00 97.7 79 18 125/80 93 Room Air 07/05/16 16:07 98.0 69 20 128/82 96 Room Air Intake and Output 07/05/16 07/06/16 19:00 07:00 Intake Total 450 ml 800 ml Output Total 400 ml Balance 450 ml 400 ml IV Total 450 ml 800 ml Output Urine Total 400 ml # Voids 5 2 Laboratory Tests Test 07/05/16 20:30 07/06/16 06:35 Urine Color Analilia Urine Appearance Slightly cloudy Urine pH 5 (4.5-8.0) Urine Specific [place] 1.020 (1.005-1.035) Urine Protein 3+ (NEGATIVE) H Urine Glucose (UA) Negative (NEGATIVE) Urine Ketones 1+ (NEGATIVE) H Urine Occult Blood 5+ (NEGATIVE) H Urine Nitrite Positive (NEGATIVE) H Urine Bilirubin 1+ (NEGATIVE) H Urine Ictotest Positive Urine Urobilinogen 1 MG/DL (0.0-1.0) H Urine Leukocyte Esterase 3+ (NEGATIVE) H Urine RBC Tntc /HPF (0 - 0) H Urine WBC 10-15 /HPF (0 - 0) H Urine Squamous Epithelial Cells Few /LPF (NONE/OCC) Urine Bacteria Moderate /HPF (NONE) H White Blood Count 8.7 K/UL (4.8-10.8) Red Blood Count 3.83 M/UL (4.70-6.10) L Hemoglobin 11.6 G/DL (14.2-18.0) L Hematocrit 33.3 % (42.0-52.0) L Mean Corpuscular Volume 87 FL (80-99) Mean Corpuscular Hemoglobin 30.3 PG (27.0-31.0) Mean Corpuscular Hemoglobin Concent 34.7 G/DL (32.0-36.0) Red Cell Distribution Width 11.9 % (11.6-14.8) Platelet Count 161 K/UL (150-450) Mean Platelet Volume 7.3 FL (6.5-10.1) Neutrophils (%) (Auto) 66.6 % (45.0-75.0) Lymphocytes (%) (Auto) 17.0 % (20.0-45.0) L Monocytes (%) (Auto) 11.6 % (1.0-10.0) H Eosinophils (%) (Auto) 3.4 % (0.0-3.0) H Basophils (%) (Auto) 1.5 % (0.0-2.0) Sodium Level 142 mEQ/L (135-145) Potassium Level 3.5 mEQ/L (3.4-4.9) Chloride Level 102 mEQ/L (98-107) Carbon Dioxide Level 24 mEQ/L (20-30) Anion Gap 16 (5-15) H Blood Urea Nitrogen 15 mg/dL (7-23) Creatinine 0.7 mg/dL (0.7-1.2) Estimat Glomerular Filtration Rate mL/min (>60) Glucose Level 90 mg/dL (74-106) Calcium Level 9.0 mg/dL (8.6-10.2) Height (Feet): 5 Height (Inches): 7.00 Weight (Pounds): 155 General Appearance: no apparent distress, alert Cardiovascular: normal rate Respiratory/Chest: normal breath sounds, no respiratory distress Abdominal Exam: normal bowel sounds, non tender, soft, incision site - c/d/i Extremities: normal range of motion Objective DATE OF OPERATION: 07/04/2016 PREOPERATIVE DIAGNOSIS: Small bowel obstruction. POSTOPERATIVE DIAGNOSIS: Small bowel obstruction. OPERATION: 1. Exploratory laparotomy. 2. Lysis of the adhesion. 3. Enterorrhaphy. SURGEON: Lashon Acevedo M.D. ANESTHESIOLOGIST: Brown Carvajal M.D. INDICATIONS: This is a 70-year-old, male, who presented to emergency room on 07/02/2016 for one-day history of abdominal pain and vomiting. Physical examination showed distended abdomen without any tenderness. CBC and UA were normal. CAT scan showed dilated small bowel loops and it was interpreted as partial small bowel obstruction. The patient was admitted to the hospital and was started on conservative treatment with IV fluid and NG suction, but the patient continued with distention and obstipation. Yesterday, a Gastrografin and small bowel followthrough was obtained last night which showed that the contrast went only [facility] in the small bowel. So this morning the another KUB was obtained, which did not show contrast in the colon and the KUB showed persistence of the dilated small bowel loops. So, the decision was made for the exploratory laparotomy. Alma Encinas N.P. Jul 06, 2016 14:52
--- NOTE | 2016-07-06 16:00 | Infectious Diseases Prog Note ---
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, temperatures Monitor CMP Subjective Allergies: Coded Allergies: No Known Allergies (Unverified , 07/01/16) Subjective low grade fever, post-op leukocytosis resolved pain controlled Objective Vital Signs Last 24 Hour Vital Signs Date Time Temp Pulse Resp B/P Pulse Ox O2 Delivery O2 Flow Rate FiO2 07/06/16 12:14 98.4 65 20 126/70 96 Room Air 07/06/16 08:19 98.0 68 20 122/75 96 Room Air 07/06/16 06:12 97.8 07/06/16 04:00 97.8 84 18 126/78 91 Room Air 07/06/16 00:00 97.9 89 18 130/81 90 Room Air 07/05/16 20:00 97.7 79 18 125/80 93 Room Air 07/05/16 16:07 98.0 69 20 128/82 96 Room Air Height (Feet): 5 Height (Inches): 7.00 Weight (Pounds): 155 General Appearance: no acute distress Respiratory/Chest: no respiratory distress Cardiovascular: normal rate, regular rhythm Abdomen: hypoactive bowel sounds Laboratory Tests Test 07/05/16 20:30 07/06/16 06:35 Urine Color Analilia Urine Appearance Slightly cloudy Urine pH 5 (4.5-8.0) Urine Specific [place] 1.020 (1.005-1.035) Urine Protein 3+ (NEGATIVE) H Urine Glucose (UA) Negative (NEGATIVE) Urine Ketones 1+ (NEGATIVE) H Urine Occult Blood 5+ (NEGATIVE) H Urine Nitrite Positive (NEGATIVE) H Urine Bilirubin 1+ (NEGATIVE) H Urine Ictotest Positive Urine Urobilinogen 1 MG/DL (0.0-1.0) H Urine Leukocyte Esterase 3+ (NEGATIVE) H Urine RBC Tntc /HPF (0 - 0) H Urine WBC 10-15 /HPF (0 - 0) H Urine Squamous Epithelial Cells Few /LPF (NONE/OCC) Urine Bacteria Moderate /HPF (NONE) H White Blood Count 8.7 K/UL (4.8-10.8) Red Blood Count 3.83 M/UL (4.70-6.10) L Hemoglobin 11.6 G/DL (14.2-18.0) L Hematocrit 33.3 % (42.0-52.0) L Mean Corpuscular Volume 87 FL (80-99) Mean Corpuscular Hemoglobin 30.3 PG (27.0-31.0) Mean Corpuscular Hemoglobin Concent 34.7 G/DL (32.0-36.0) Red Cell Distribution Width 11.9 % (11.6-14.8) Platelet Count 161 K/UL (150-450) Mean Platelet Volume 7.3 FL (6.5-10.1) Neutrophils (%) (Auto) 66.6 % (45.0-75.0) Lymphocytes (%) (Auto) 17.0 % (20.0-45.0) L Monocytes (%) (Auto) 11.6 % (1.0-10.0) H Eosinophils (%) (Auto) 3.4 % (0.0-3.0) H Basophils (%) (Auto) 1.5 % (0.0-2.0) Sodium Level 142 mEQ/L (135-145) Potassium Level 3.5 mEQ/L (3.4-4.9) Chloride Level 102 mEQ/L (98-107) Carbon Dioxide Level 24 mEQ/L (20-30) Anion Gap 16 (5-15) H Blood Urea Nitrogen 15 mg/dL (7-23) Creatinine 0.7 mg/dL (0.7-1.2) Estimat Glomerular Filtration Rate mL/min (>60) Glucose Level 90 mg/dL (74-106) Calcium Level 9.0 mg/dL (8.6-10.2) Current Medications Medications (Trade) Dose Ordered Sig/Chester Route PRN Reason Start Time Stop Time Status Last Admin Dose Admin Acetaminophen (Tylenol) 650 mg Q4H PRN RECTAL FEVER 07/04/16 13:30 08/03/16 13:29 07/04/16 21:32 Dextrose (D5W 1000ml) 1,000 ml @ 75 mls/hr [id number] IV 07/05/16 13:00 08/04/16 12:59 07/06/16 11:58 Dextrose (Dextrose 50%) STAT PRN IV Hypoglycemia 07/02/16 09:30 08/01/16 09:29 Enoxaparin Sodium (Lovenox) 40 mg DAILY SUBQ 07/05/16 09:00 08/04/16 08:59 07/06/16 08:57 Hydromorphone HCl (Dilaudid) 0.5 mg Q3H PRN IVP Pain Score 1-3 07/04/16 13:30 07/11/16 13:29 07/04/16 21:23 Hydromorphone HCl (Dilaudid) 1 mg Q3H PRN IVP pain score 4-6 07/04/16 13:30 07/11/16 13:29 07/06/16 11:57 Metoclopramide HCl (Reglan) 10 mg Q6H PRN IVP Nausea & Vomiting 07/04/16 13:30 08/03/16 13:29 Ondansetron HCl (Zofran) 4 mg Q6H PRN IVP Nausea & Vomiting 07/04/16 13:30 08/03/16 13:29 Pantoprazole 40 mg 40 mg DAILY IVP 07/05/16 09:00 08/04/16 08:59 07/06/16 08:54 Patient Own Medication (Patient's Own Med) 1 ea DAILY ORAL 07/03/16 09:00 08/02/16 08:59 07/06/16 08:55 Piperacillin Sod/ Tazobactam Sod 3.375 gm/Dextrose 100 ml @ 25 mls/hr EVERY 8 HOURS IVPB 07/05/16 22:00 07/10/16 21:59 07/06/16 13:56 Vancomycin HCl 1 ea 1 ea DAILY PRN MISC Per rx protocol 07/05/16 16:45 08/04/16 16:44 Vancomycin HCl/ Dextrose (Vancomycin/D5W 250ml) 300 ml @ 150 mls/hr Q24H IVPB 07/05/16 19:00 07/10/16 18:59 07/05/16 19:43 EMMANUEL MCCLOUD Jul 06, 2016 16:00
--- NOTE | 2016-07-06 17:14 | General Surgery Progress Note ---
General Surgery-Progress Note Subjective Symptoms: improved Objective Last 24 Hour Vital Signs Date Time Temp Pulse Resp B/P Pulse Ox O2 Delivery O2 Flow Rate FiO2 07/06/16 16:17 98.0 70 20 126/88 96 Room Air 07/06/16 12:14 98.4 65 20 126/70 96 Room Air 07/06/16 08:19 98.0 68 20 122/75 96 Room Air 07/06/16 06:12 97.8 07/06/16 04:00 97.8 84 18 126/78 91 Room Air 07/06/16 00:00 97.9 89 18 130/81 90 Room Air 07/05/16 20:00 97.7 79 18 125/80 93 Room Air I&O Intake and Output 07/05/16 07/06/16 19:00 07:00 Intake Total 450 ml 800 ml Output Total 400 ml Balance 450 ml 400 ml IV Total 450 ml 800 ml Output Urine Total 400 ml # Voids 5 2 Dressing: dry Drains: none Respiratory: clear Abdomen: soft, distended, absent bowel sounds Extremities: no tenderness Laboratory Tests Test 07/05/16 20:30 07/06/16 06:35 Urine Color Analilia Urine Appearance Slightly cloudy Urine pH 5 (4.5-8.0) Urine Specific [place] 1.020 (1.005-1.035) Urine Protein 3+ (NEGATIVE) H Urine Glucose (UA) Negative (NEGATIVE) Urine Ketones 1+ (NEGATIVE) H Urine Occult Blood 5+ (NEGATIVE) H Urine Nitrite Positive (NEGATIVE) H Urine Bilirubin 1+ (NEGATIVE) H Urine Ictotest Positive Urine Urobilinogen 1 MG/DL (0.0-1.0) H Urine Leukocyte Esterase 3+ (NEGATIVE) H Urine RBC Tntc /HPF (0 - 0) H Urine WBC 10-15 /HPF (0 - 0) H Urine Squamous Epithelial Cells Few /LPF (NONE/OCC) Urine Bacteria Moderate /HPF (NONE) H White Blood Count 8.7 K/UL (4.8-10.8) Red Blood Count 3.83 M/UL (4.70-6.10) L Hemoglobin 11.6 G/DL (14.2-18.0) L Hematocrit 33.3 % (42.0-52.0) L Mean Corpuscular Volume 87 FL (80-99) Mean Corpuscular Hemoglobin 30.3 PG (27.0-31.0) Mean Corpuscular Hemoglobin Concent 34.7 G/DL (32.0-36.0) Red Cell Distribution Width 11.9 % (11.6-14.8) Platelet Count 161 K/UL (150-450) Mean Platelet Volume 7.3 FL (6.5-10.1) Neutrophils (%) (Auto) 66.6 % (45.0-75.0) Lymphocytes (%) (Auto) 17.0 % (20.0-45.0) L Monocytes (%) (Auto) 11.6 % (1.0-10.0) H Eosinophils (%) (Auto) 3.4 % (0.0-3.0) H Basophils (%) (Auto) 1.5 % (0.0-2.0) Sodium Level 142 mEQ/L (135-145) Potassium Level 3.5 mEQ/L (3.4-4.9) Chloride Level 102 mEQ/L (98-107) Carbon Dioxide Level 24 mEQ/L (20-30) Anion Gap 16 (5-15) H Blood Urea Nitrogen 15 mg/dL (7-23) Creatinine 0.7 mg/dL (0.7-1.2) Estimat Glomerular Filtration Rate mL/min (>60) Glucose Level 90 mg/dL (74-106) Calcium Level 9.0 mg/dL (8.6-10.2) Assessment Additional Comments S/P SBO Plan Additional Comments continue NPO ALEXEY LACY Jul 06, 2016 17:14
[2016-07-06] MEDS: Vancomycin 1.5 GM in D5W 300 ML IVPB SCH (19:19)
[2016-07-07] MEDS: HYDROmorphone 1mg/ml Carpuject IVP PRN ×3 (01:19→08:31)
[2016-07-07 04:00] VITALS: BP 130/86
[2016-07-07 06:28] LABS: BASOPHILS % (AUTO) 1.3 % (0.0-2.0); EOSINOPHILS % (AUTO) 4.6 % (0.0-3.0); LYMPHOCYTES % (AUTO) 13.2 % (20.0-45.0); MEAN CORPUSCULAR HEMOGLOBIN 29.9 PG (27.0-31.0); MEAN CORPUSCULAR HGB CONC 34.8 G/DL (32.0-36.0); MEAN CORPUSCULAR VOLUME 86 FL (80-99); MEAN PLATELET VOLUME 7.2 FL (6.5-10.1); MONOCYTES % (AUTO) 11.5 % (1.0-10.0); NEUTROPHILS % (AUTO) 69.5 % (45.0-75.0); PLATELET COUNT 198 K/UL (150-450); RED BLOOD COUNT 3.95 M/UL (4.70-6.10); RED CELL DISTRIBUTION WIDTH 11.6 % (11.6-14.8); WHITE BLOOD COUNT 8.4 K/UL (4.8-10.8)
[2016-07-07 06:42] LABS: ALANINE AMINOTRANSFERASE 21 U/L (3-41); ANION GAP 14 (5-15); ASPARTATE AMINO TRANSFERASE 27 U/L (5-40); CALCIUM 8.7 mg/dL (8.6-10.2); CARBON DIOXIDE 26 mEQ/L (20-30); CHLORIDE 103 mEQ/L (98-107); CREATININE 0.9 mg/dL (0.7-1.2); HEMOLYSIS 6; POTASSIUM 3.2 mEQ/L (3.4-4.9); SODIUM 143 mEQ/L (135-145); TOTAL PROTEIN 6.2 g/dL (6.6-8.7)
[2016-07-07 07:18] LABS: BILIRUBIN,DIRECT 0.5 mg/dL (0.1-0.3)
[2016-07-07 08:19] VITALS: BP 137/81
[2016-07-07] MEDS: Pantoprazole Inj IVP SCH (08:26)
[2016-07-07] MEDS: HARVONI ORAL SCH (08:26)
[2016-07-07] MEDS: Enoxaparin 40mg Inj SUBQ SCH (08:27)
--- NOTE | 2016-07-07 08:38 | Nephrology Progress Note ---
Assessment/Plan Problem List: (1) Partial small bowel obstruction (2) Hepatitis C (3) Abdominal pain (4) Elevated lipase Plan cont NGT to LIS. F/u GI and Surg recs. cont IVF. Subjective Subjective late entry for 07/06 - s/p ex lap. Objective Objective Last 24 Hour Vital Signs Date Time Temp Pulse Resp B/P Pulse Ox O2 Delivery O2 Flow Rate FiO2 07/07/16 08:19 97.7 76 18 137/81 97 Room Air 07/07/16 05:38 99.5 07/07/16 04:00 98.6 69 18 130/86 94 Room Air 07/06/16 23:44 99.5 71 18 135/91 93 Room Air 07/06/16 20:00 98.1 67 18 136/85 100 Room Air 07/06/16 16:17 98.0 70 20 126/88 96 Room Air 07/06/16 12:14 98.4 65 20 126/70 96 Room Air Intake and Output 07/06/16 07/07/16 19:00 07:00 Intake Total 475 ml 725 ml Output Total 50 ml 400 ml Balance 425 ml 325 ml Intake Oral 0 ml IV Total 475 ml 725 ml Gastric Drainage Total 50 ml 400 ml # Voids 2 6 Laboratory Tests 07/07/16 05:40: White Blood Count 8.4, Red Blood Count 3.95L, Hemoglobin 11.8L, Hematocrit 34.0L , Mean Corpuscular Volume 86, Mean Corpuscular Hemoglobin 29.9, Mean Corpuscular Hemoglobin Concent 34.8, Red Cell Distribution Width 11.6, Platelet Count 198, Mean Platelet Volume 7.2, Neutrophils (%) (Auto) 69.5, Lymphocytes (% ) (Auto) 13.2L, Monocytes (%) (Auto) 11.5H, Eosinophils (%) (Auto) 4.6H, Basophils (%) (Auto) 1.3, Sodium Level 143, Potassium Level 3.2L, Chloride Level 103, Carbon Dioxide Level 26, Anion Gap 14, Blood Urea Nitrogen 14, Creatinine 0.9, Estimat Glomerular Filtration Rate , Glucose Level 92, Calcium Level 8.7, Total Bilirubin 1.3H, Direct Bilirubin 0.5H, Aspartate Amino Transf ( AST/SGOT) 27, Alanine Aminotransferase (ALT/SGPT) 21, Alkaline Phosphatase 81, Total Protein 6.2L, Albumin 3.1L, Globulin 3.1, Albumin/Globulin Ratio 1.0 Height (Feet): 5 Height (Inches): 7.00 Weight (Pounds): 155 General Appearance: no apparent distress Cardiovascular: normal rate, regular rhythm Respiratory/Chest: lungs clear Abdomen: non tender, soft, distended Extremities: trace edema Neurologic: alert KYLEE HANSON Jul 07, 2016 08:38
[2016-07-07 11:26] VITALS: BP 135/76
--- NOTE | 2016-07-07 13:31 | GI Progress Note ---
Assessment/Plan Problems: (1) Elevated lipase ICD Codes: R74.8 - Abnormal levels of other serum enzymes SNOMED: 661571365 (2) Abdominal pain ICD Codes: R10.9 - Unspecified abdominal pain SNOMED: 88953178 (3) Partial small bowel obstruction ICD Codes: K56.69 - Other intestinal obstruction SNOMED: 360113253 (4) Hepatitis C ICD Codes: B19.20 - Unspecified viral hepatitis C without hepatic coma SNOMED: 03623759 Qualifiers: (5) Status post exploratory laparotomy ICD Codes: Z98.890 - Other specified postprocedural states SNOMED: 50722145, 54720701, 665334801 Status: progressing Status Narrative Discussed with Dr. Leach. Assessment/Plan f/u surgical recs s/p ex-lap with adhesion lysis dietary per surgical NGTF to LCIS ppi fu labs outpatient Hep C tx Subjective Gastrointestinal/Abdominal: Reports: no symptoms Subjective hunger Objective Last 24 Hour Vital Signs Date Time Temp Pulse Resp B/P Pulse Ox O2 Delivery O2 Flow Rate FiO2 07/07/16 11:26 98.4 79 18 135/76 97 Room Air 07/07/16 09:01 97.7 07/07/16 08:19 97.7 76 18 137/81 97 Room Air 07/07/16 04:00 98.6 69 18 130/86 94 Room Air 07/06/16 23:44 99.5 71 18 135/91 93 Room Air 07/06/16 20:00 98.1 67 18 136/85 100 Room Air 07/06/16 16:17 98.0 70 20 126/88 96 Room Air Intake and Output 07/06/16 07/07/16 19:00 07:00 Intake Total 475 ml 725 ml Output Total 50 ml 400 ml Balance 425 ml 325 ml Intake Oral 0 ml IV Total 475 ml 725 ml Gastric Drainage Total 50 ml 400 ml # Voids 2 6 Laboratory Tests Test 07/07/16 05:40 White Blood Count 8.4 K/UL (4.8-10.8) Red Blood Count 3.95 M/UL (4.70-6.10) L Hemoglobin 11.8 G/DL (14.2-18.0) L Hematocrit 34.0 % (42.0-52.0) L Mean Corpuscular Volume 86 FL (80-99) Mean Corpuscular Hemoglobin 29.9 PG (27.0-31.0) Mean Corpuscular Hemoglobin Concent 34.8 G/DL (32.0-36.0) Red Cell Distribution Width 11.6 % (11.6-14.8) Platelet Count 198 K/UL (150-450) Mean Platelet Volume 7.2 FL (6.5-10.1) Neutrophils (%) (Auto) 69.5 % (45.0-75.0) Lymphocytes (%) (Auto) 13.2 % (20.0-45.0) L Monocytes (%) (Auto) 11.5 % (1.0-10.0) H Eosinophils (%) (Auto) 4.6 % (0.0-3.0) H Basophils (%) (Auto) 1.3 % (0.0-2.0) Sodium Level 143 mEQ/L (135-145) Potassium Level 3.2 mEQ/L (3.4-4.9) L Chloride Level 103 mEQ/L (98-107) Carbon Dioxide Level 26 mEQ/L (20-30) Anion Gap 14 (5-15) Blood Urea Nitrogen 14 mg/dL (7-23) Creatinine 0.9 mg/dL (0.7-1.2) Estimat Glomerular Filtration Rate mL/min (>60) Glucose Level 92 mg/dL (74-106) Calcium Level 8.7 mg/dL (8.6-10.2) Total Bilirubin 1.3 mg/dL (0.0-1.2) H Direct Bilirubin 0.5 mg/dL (0.1-0.3) H Aspartate Amino Transf (AST/SGOT) 27 U/L (5-40) Alanine Aminotransferase (ALT/SGPT) 21 U/L (3-41) Alkaline Phosphatase 81 U/L (40-129) Total Protein 6.2 g/dL (6.6-8.7) L Albumin 3.1 g/dL (3.5-5.2) L Globulin 3.1 g/dL Albumin/Globulin Ratio 1.0 (1.0-2.7) Height (Feet): 5 Height (Inches): 7.00 Weight (Pounds): 155 General Appearance: no apparent distress, alert Cardiovascular: normal rate Respiratory/Chest: normal breath sounds, no respiratory distress Abdominal Exam: other - NGT Objective DATE OF OPERATION: 07/04/2016 PREOPERATIVE DIAGNOSIS: Small bowel obstruction. POSTOPERATIVE DIAGNOSIS: Small bowel obstruction. OPERATION: 1. Exploratory laparotomy. 2. Lysis of the adhesion. 3. Enterorrhaphy. SURGEON: Lashon Acevedo M.D. ANESTHESIOLOGIST: Brown Carvajal M.D. INDICATIONS: This is a 70-year-old, male, who presented to emergency room on 07/02/2016 for one-day history of abdominal pain and vomiting. Physical examination showed distended abdomen without any tenderness. CBC and UA were normal. CAT scan showed dilated small bowel loops and it was interpreted as partial small bowel obstruction. The patient was admitted to the hospital and was started on conservative treatment with IV fluid and NG suction, but the patient continued with distention and obstipation. Yesterday, a Gastrografin and small bowel followthrough was obtained last night which showed that the contrast went only alf in the small bowel. So this morning the another KUB was obtained, which did not show contrast in the colon and the KUB showed persistence of the dilated small bowel loops. So, the decision was made for the exploratory laparotomy. Alma Encinas N.P. Jul 07, 2016 13:31
--- NOTE | 2016-07-07 14:05 | Infectious Diseases Prog Note ---
Assessment/Plan Assessment/Plan ASSESSMENT: 70 y/o male with: Possible UTI - UCx pending Chronic HCV, on Harvoni since 06/28/15 Acute mild leukocytosis - resolved Low grade fever x1 - resolved - risk: atelectasis, DVT, UTI, PNA, wound infection, bacteremia Partial SBO SP ex-lap, DAVID 07/04 - incisonal pain, erythema, bleeding r/o infection improved SP traumatic self-pat removal h/o IVDA NKDA Full Code PLAN: continue empiric IV vancomycin, zosyn d# 3 / 5 ( 07/04 SP ancef per SCIP ) resume Harvoni ( pt may take home meds ) when taking PO f/u UCx, CXR monitor surgical site identification specialist CBC, temperatures Monitor CMP Subjective Allergies: Coded Allergies: No Known Allergies (Unverified , 07/01/16) Subjective low grade fever, post-op leukocytosis resolved pain controlled Objective Vital Signs Last 24 Hour Vital Signs Date Time Temp Pulse Resp B/P Pulse Ox O2 Delivery O2 Flow Rate FiO2 07/07/16 11:26 98.4 79 18 135/76 97 Room Air 07/07/16 09:01 97.7 07/07/16 08:19 97.7 76 18 137/81 97 Room Air 07/07/16 04:00 98.6 69 18 130/86 94 Room Air 07/06/16 23:44 99.5 71 18 135/91 93 Room Air 07/06/16 20:00 98.1 67 18 136/85 100 Room Air 07/06/16 16:17 98.0 70 20 126/88 96 Room Air Height (Feet): 5 Height (Inches): 7.00 Weight (Pounds): 155 General Appearance: no acute distress Respiratory/Chest: no respiratory distress Cardiovascular: normal rate, regular rhythm Abdomen: normal bowel sounds, soft, non tender, non distended Microbiology Date/Time Source Procedure Growth Status 07/05/16 20:30 Urine,Clean Catch Urine Culture - Preliminary Resulted Laboratory Tests Test 07/07/16 05:40 White Blood Count 8.4 K/UL (4.8-10.8) Red Blood Count 3.95 M/UL (4.70-6.10) L Hemoglobin 11.8 G/DL (14.2-18.0) L Hematocrit 34.0 % (42.0-52.0) L Mean Corpuscular Volume 86 FL (80-99) Mean Corpuscular Hemoglobin 29.9 PG (27.0-31.0) Mean Corpuscular Hemoglobin Concent 34.8 G/DL (32.0-36.0) Red Cell Distribution Width 11.6 % (11.6-14.8) Platelet Count 198 K/UL (150-450) Mean Platelet Volume 7.2 FL (6.5-10.1) Neutrophils (%) (Auto) 69.5 % (45.0-75.0) Lymphocytes (%) (Auto) 13.2 % (20.0-45.0) L Monocytes (%) (Auto) 11.5 % (1.0-10.0) H Eosinophils (%) (Auto) 4.6 % (0.0-3.0) H Basophils (%) (Auto) 1.3 % (0.0-2.0) Sodium Level 143 mEQ/L (135-145) Potassium Level 3.2 mEQ/L (3.4-4.9) L Chloride Level 103 mEQ/L (98-107) Carbon Dioxide Level 26 mEQ/L (20-30) Anion Gap 14 (5-15) Blood Urea Nitrogen 14 mg/dL (7-23) Creatinine 0.9 mg/dL (0.7-1.2) Estimat Glomerular Filtration Rate mL/min (>60) Glucose Level 92 mg/dL (74-106) Calcium Level 8.7 mg/dL (8.6-10.2) Total Bilirubin 1.3 mg/dL (0.0-1.2) H Direct Bilirubin 0.5 mg/dL (0.1-0.3) H Aspartate Amino Transf (AST/SGOT) 27 U/L (5-40) Alanine Aminotransferase (ALT/SGPT) 21 U/L (3-41) Alkaline Phosphatase 81 U/L (40-129) Total Protein 6.2 g/dL (6.6-8.7) L Albumin 3.1 g/dL (3.5-5.2) L Globulin 3.1 g/dL Albumin/Globulin Ratio 1.0 (1.0-2.7) Current Medications Medications (Trade) Dose Ordered Sig/Chester Route PRN Reason Start Time Stop Time Status Last Admin Dose Admin Acetaminophen (Tylenol) 650 mg Q4H PRN RECTAL FEVER 07/04/16 13:30 08/03/16 13:29 07/04/16 21:32 Dextrose (D5W 1000ml) 1,000 ml @ 75 mls/hr [id number] IV 07/05/16 13:00 08/04/16 12:59 07/07/16 01:18 Dextrose (Dextrose 50%) STAT PRN IV Hypoglycemia 07/02/16 09:30 08/01/16 09:29 Enoxaparin Sodium (Lovenox) 40 mg DAILY SUBQ 07/05/16 09:00 08/04/16 08:59 07/06/16 08:57 Hydromorphone HCl (Dilaudid) 0.5 mg Q3H PRN IVP Pain Score 1-3 07/04/16 13:30 07/11/16 13:29 07/04/16 21:23 Hydromorphone HCl (Dilaudid) 1 mg Q3H PRN IVP pain score 4-6 07/04/16 13:30 07/11/16 13:29 07/07/16 08:31 Metoclopramide HCl (Reglan) 10 mg Q6H PRN IVP Nausea & Vomiting 07/04/16 13:30 08/03/16 13:29 Ondansetron HCl (Zofran) 4 mg Q6H PRN IVP Nausea & Vomiting 07/04/16 13:30 08/03/16 13:29 Pantoprazole 40 mg 40 mg DAILY IVP 07/05/16 09:00 08/04/16 08:59 07/07/16 08:26 Patient Own Medication (Patient's Own Med) 1 ea DAILY ORAL 07/03/16 09:00 08/02/16 08:59 07/07/16 08:26 Piperacillin Sod/ Tazobactam Sod 3.375 gm/Dextrose 100 ml @ 25 mls/hr EVERY 8 HOURS IVPB 07/05/16 22:00 07/10/16 21:59 07/07/16 05:04 Vancomycin HCl 1 ea 1 ea DAILY PRN MISC Per rx protocol 07/05/16 16:45 08/04/16 16:44 Vancomycin HCl/ Dextrose (Vancomycin/D5W 250ml) 300 ml @ 150 mls/hr Q24H IVPB 07/05/16 19:00 07/10/16 18:59 07/06/16 19:19 EMMANUEL MCCLOUD Jul 07, 2016 14:05
--- NOTE | 2016-07-07 14:14 | General Surgery Progress Note ---
General Surgery-Progress Note Subjective Symptoms: improved, passing flatus Objective Last 24 Hour Vital Signs Date Time Temp Pulse Resp B/P Pulse Ox O2 Delivery O2 Flow Rate FiO2 07/07/16 11:26 98.4 79 18 135/76 97 Room Air 07/07/16 09:01 97.7 07/07/16 08:19 97.7 76 18 137/81 97 Room Air 07/07/16 04:00 98.6 69 18 130/86 94 Room Air 07/06/16 23:44 99.5 71 18 135/91 93 Room Air 07/06/16 20:00 98.1 67 18 136/85 100 Room Air 07/06/16 16:17 98.0 70 20 126/88 96 Room Air I&O Intake and Output 07/06/16 07/07/16 19:00 07:00 Intake Total 475 ml 725 ml Output Total 50 ml 400 ml Balance 425 ml 325 ml Intake Oral 0 ml IV Total 475 ml 725 ml Gastric Drainage Total 50 ml 400 ml # Voids 2 6 Wound: clean, intact Drains: none Respiratory: clear Abdomen: soft, flat, non-tender, absent bowel sounds Extremities: no tenderness Laboratory Tests Test 07/07/16 05:40 White Blood Count 8.4 K/UL (4.8-10.8) Red Blood Count 3.95 M/UL (4.70-6.10) L Hemoglobin 11.8 G/DL (14.2-18.0) L Hematocrit 34.0 % (42.0-52.0) L Mean Corpuscular Volume 86 FL (80-99) Mean Corpuscular Hemoglobin 29.9 PG (27.0-31.0) Mean Corpuscular Hemoglobin Concent 34.8 G/DL (32.0-36.0) Red Cell Distribution Width 11.6 % (11.6-14.8) Platelet Count 198 K/UL (150-450) Mean Platelet Volume 7.2 FL (6.5-10.1) Neutrophils (%) (Auto) 69.5 % (45.0-75.0) Lymphocytes (%) (Auto) 13.2 % (20.0-45.0) L Monocytes (%) (Auto) 11.5 % (1.0-10.0) H Eosinophils (%) (Auto) 4.6 % (0.0-3.0) H Basophils (%) (Auto) 1.3 % (0.0-2.0) Sodium Level 143 mEQ/L (135-145) Potassium Level 3.2 mEQ/L (3.4-4.9) L Chloride Level 103 mEQ/L (98-107) Carbon Dioxide Level 26 mEQ/L (20-30) Anion Gap 14 (5-15) Blood Urea Nitrogen 14 mg/dL (7-23) Creatinine 0.9 mg/dL (0.7-1.2) Estimat Glomerular Filtration Rate mL/min (>60) Glucose Level 92 mg/dL (74-106) Calcium Level 8.7 mg/dL (8.6-10.2) Total Bilirubin 1.3 mg/dL (0.0-1.2) H Direct Bilirubin 0.5 mg/dL (0.1-0.3) H Aspartate Amino Transf (AST/SGOT) 27 U/L (5-40) Alanine Aminotransferase (ALT/SGPT) 21 U/L (3-41) Alkaline Phosphatase 81 U/L (40-129) Total Protein 6.2 g/dL (6.6-8.7) L Albumin 3.1 g/dL (3.5-5.2) L Globulin 3.1 g/dL Albumin/Globulin Ratio 1.0 (1.0-2.7) Assessment Additional Comments S/P SBO Plan Additional Comments continue NPO ALEXEY LACY Jul 07, 2016 14:14
[2016-07-07] MEDS ORDERED: Heparin 2000 units/Ns 1000ml INJ SCH (14:15)
[2016-07-07] MEDS ORDERED: Sodium Bicarbonate 8.4% 50ml Inj IV SCH (14:15)
[2016-07-07] MEDS ORDERED: Lidocaine 1% Plain 30 ml INJ SCH (14:15)
[2016-07-07 16:00] VITALS: BP 143/86
--- NOTE | 2016-07-07 18:14 | Nephrology Progress Note ---
Assessment/Plan Problem List: (1) Abdominal pain (2) Elevated lipase (3) SBO (small bowel obstruction) (4) Hepatitis C (5) Hypernatremia (6) Status post exploratory laparotomy Plan Will follow surg recs pain management Hypernatremia resolved, cont D5W Continue NPO NGT-LIS s/p ex-lap with adhesion lysis dietary per surgical ppi DVT prophylaxis AM labs Subjective Constitutional: Denies: chills, diaphoresis, fever, malaise, no symptoms, other , weakness HEENT: Denies: blurred vision, double vision, ear discharge, ear pain, eye pain , mouth pain, mouth swelling, no symptoms, nose congestion, nose pain, other, tearing, throat pain, throat swelling Genitourinary: Denies: burning, discharge, flank pain, frequency, hematuria, incontinence, no symptoms, other, pain, urgency Neurologic/Psychiatric: Denies: anxiety, depressed, emotional problems, headache, no symptoms, numbness, other, paresthesia, pre-existing deficit, seizure, tingling, tremors, weakness Subjective In bed, in no distress, denies discomfort Objective Objective Last 24 Hour Vital Signs Date Time Temp Pulse Resp B/P Pulse Ox O2 Delivery O2 Flow Rate FiO2 07/07/16 16:00 99.3 72 20 143/86 93 Room Air 07/07/16 11:26 98.4 79 18 135/76 97 Room Air 07/07/16 09:01 97.7 07/07/16 08:19 97.7 76 18 137/81 97 Room Air 07/07/16 04:00 98.6 69 18 130/86 94 Room Air 07/06/16 23:44 99.5 71 18 135/91 93 Room Air 07/06/16 20:00 98.1 67 18 136/85 100 Room Air Intake and Output 07/06/16 07/07/16 19:00 07:00 Intake Total 475 ml 725 ml Output Total 50 ml 400 ml Balance 425 ml 325 ml Intake Oral 0 ml IV Total 475 ml 725 ml Gastric Drainage Total 50 ml 400 ml # Voids 2 6 Laboratory Tests 07/07/16 05:40: White Blood Count 8.4, Red Blood Count 3.95L, Hemoglobin 11.8L, Hematocrit 34.0L , Mean Corpuscular Volume 86, Mean Corpuscular Hemoglobin 29.9, Mean Corpuscular Hemoglobin Concent 34.8, Red Cell Distribution Width 11.6, Platelet Count 198, Mean Platelet Volume 7.2, Neutrophils (%) (Auto) 69.5, Lymphocytes (% ) (Auto) 13.2L, Monocytes (%) (Auto) 11.5H, Eosinophils (%) (Auto) 4.6H, Basophils (%) (Auto) 1.3, Sodium Level 143, Potassium Level 3.2L, Chloride Level 103, Carbon Dioxide Level 26, Anion Gap 14, Blood Urea Nitrogen 14, Creatinine 0.9, Estimat Glomerular Filtration Rate , Glucose Level 92, Calcium Level 8.7, Total Bilirubin 1.3H, Direct Bilirubin 0.5H, Aspartate Amino Transf ( AST/SGOT) 27, Alanine Aminotransferase (ALT/SGPT) 21, Alkaline Phosphatase 81, Total Protein 6.2L, Albumin 3.1L, Globulin 3.1, Albumin/Globulin Ratio 1.0 Height (Feet): 5 Height (Inches): 7.00 Weight (Pounds): 155 General Appearance: no apparent distress, alert EENT: normal ENT inspection Neck: normal alignment Cardiovascular: normal rate, regular rhythm, no JVD Respiratory/Chest: lungs clear, normal breath sounds Abdomen: soft, tender Extremities: normal range of motion, non-tender, normal inspection, no calf tenderness Neurologic: alert, oriented x 3, responsive, normal mood/affect - s/p ex-lap Alona Olivera N.P. Jul 07, 2016 18:14
[2016-07-07] MEDS: Vancomycin 1.5 GM in D5W 300 ML IVPB SCH (19:00)
[2016-07-07 20:00] VITALS: BP 134/81
[2016-07-07] MEDS: HYDROmorphone 1mg/ml Carpuject IM PRN (20:02)
[2016-07-07 23:42] VITALS: BP 122/79
[2016-07-08] MEDS: HYDROmorphone 1mg/ml Carpuject IM PRN ×2 (00:07→03:32)
[2016-07-08 04:13] VITALS: BP 121/71
[2016-07-08 07:32] LABS: BASOPHILS % (AUTO) 1.3 % (0.0-2.0); EOSINOPHILS % (AUTO) 5.6 % (0.0-3.0); LYMPHOCYTES % (AUTO) 22.2 % (20.0-45.0); MEAN CORPUSCULAR VOLUME 86 FL (80-99); MEAN PLATELET VOLUME 7.2 FL (6.5-10.1); MONOCYTES % (AUTO) 15.6 % (1.0-10.0); NEUTROPHILS % (AUTO) 55.3 % (45.0-75.0); PLATELET COUNT 225 K/UL (150-450); RED CELL DISTRIBUTION WIDTH 11.4 % (11.6-14.8); WHITE BLOOD COUNT 7.2 K/UL (4.8-10.8)
[2016-07-08 07:53] LABS: ANION GAP 13 (5-15); CALCIUM 9.3 mg/dL (8.6-10.2); CARBON DIOXIDE 28 mEQ/L (20-30); CHLORIDE 102 mEQ/L (98-107); CREATININE 0.8 mg/dL (0.7-1.2); HEMOLYSIS 1; POTASSIUM 4.1 mEQ/L (3.4-4.9); SODIUM 143 mEQ/L (135-145)
[2016-07-08 08:12] VITALS: BP 125/73
[2016-07-08] MEDS: HARVONI ORAL SCH (09:23)
[2016-07-08] MEDS: Pantoprazole Inj IVP SCH (09:24)
[2016-07-08] MEDS: Enoxaparin 40mg Inj SUBQ SCH (09:29)
--- NOTE | 2016-07-08 09:44 | Infectious Diseases Prog Note ---
Assessment/Plan Assessment/Plan ASSESSMENT: 70 y/o male with: Possible UTI - UCx mixed urogenital contaminants Chronic HCV, on Harvoni since 06/28/15 Acute mild leukocytosis - resolved Low grade fever x1 - resolved - risk: atelectasis, DVT, UTI, PNA, wound infection, bacteremia Partial SBO SP ex-lap, DAVID 07/04 SP traumatic self-pta removal h/o IVDA NKDA Full Code PLAN: continue empiric IV vancomycin, zosyn d# 4 / 5 ( 07/04 SP ancef per SCIP ) resume Harvoni ( pt may take home meds ) when taking PO f/u CXR monitor surgical website project manager CBC, temperatures Monitor CMP Subjective Allergies: Coded Allergies: No Known Allergies (Unverified , 07/01/16) Subjective low grade fever, post-op leukocytosis resolved lost IV access, but was able to be replaced Objective Vital Signs Last 24 Hour Vital Signs Date Time Temp Pulse Resp B/P Pulse Ox O2 Delivery O2 Flow Rate FiO2 07/08/16 08:12 99.3 71 20 125/73 95 Room Air 07/08/16 04:13 98.4 66 18 121/71 99 Room Air 07/08/16 04:02 98.1 07/07/16 23:42 98.1 67 18 122/79 97 Room Air 07/07/16 20:00 98.4 80 20 134/81 95 Room Air 07/07/16 16:00 99.3 72 20 143/86 93 Room Air 07/07/16 11:26 98.4 79 18 135/76 97 Room Air Height (Feet): 5 Height (Inches): 7.00 Weight (Pounds): 155 General Appearance: no acute distress Respiratory/Chest: no respiratory distress Cardiovascular: normal rate, regular rhythm Abdomen: normal bowel sounds, soft, non tender, non distended Microbiology Date/Time Source Procedure Growth Status 07/05/16 20:30 Urine,Clean Catch Urine Culture - Final Mixed Urogenital Contaminants Complete Laboratory Tests Test 07/08/16 07:20 White Blood Count 7.2 K/UL (4.8-10.8) Red Blood Count 4.00 M/UL (4.70-6.10) L Hemoglobin 12.0 G/DL (14.2-18.0) L Hematocrit 34.2 % (42.0-52.0) L Mean Corpuscular Volume 86 FL (80-99) Mean Corpuscular Hemoglobin 30.0 PG (27.0-31.0) Mean Corpuscular Hemoglobin Concent 35.0 G/DL (32.0-36.0) Red Cell Distribution Width 11.4 % (11.6-14.8) L Platelet Count 225 K/UL (150-450) Mean Platelet Volume 7.2 FL (6.5-10.1) Neutrophils (%) (Auto) 55.3 % (45.0-75.0) Lymphocytes (%) (Auto) 22.2 % (20.0-45.0) Monocytes (%) (Auto) 15.6 % (1.0-10.0) H Eosinophils (%) (Auto) 5.6 % (0.0-3.0) H Basophils (%) (Auto) 1.3 % (0.0-2.0) Sodium Level 143 mEQ/L (135-145) Potassium Level 4.1 mEQ/L (3.4-4.9) Chloride Level 102 mEQ/L (98-107) Carbon Dioxide Level 28 mEQ/L (20-30) Anion Gap 13 (5-15) Blood Urea Nitrogen 14 mg/dL (7-23) Creatinine 0.8 mg/dL (0.7-1.2) Estimat Glomerular Filtration Rate mL/min (>60) Glucose Level 90 mg/dL (74-106) Calcium Level 9.3 mg/dL (8.6-10.2) Current Medications Medications (Trade) Dose Ordered Sig/Chester Route PRN Reason Start Time Stop Time Status Last Admin Dose Admin Acetaminophen (Tylenol) 650 mg Q4H PRN RECTAL FEVER 07/04/16 13:30 08/03/16 13:29 07/04/16 21:32 Dextrose (D5W 1000ml) 1,000 ml @ 75 mls/hr [id number] IV 07/05/16 13:00 08/04/16 12:59 07/07/16 01:18 Dextrose (Dextrose 50%) STAT PRN IV Hypoglycemia 07/02/16 09:30 08/01/16 09:29 Enoxaparin Sodium (Lovenox) 40 mg DAILY SUBQ 07/05/16 09:00 08/04/16 08:59 07/06/16 08:57 Hydromorphone HCl (Dilaudid) 0.5 mg Q3H PRN IVP Pain Score 1-3 07/04/16 13:30 07/11/16 13:29 07/04/16 21:23 Hydromorphone HCl (Dilaudid) 1 mg Q3H PRN IM pain score 4-6 07/07/16 14:30 07/14/16 14:29 07/08/16 03:32 Metoclopramide HCl (Reglan) 10 mg Q6H PRN IVP Nausea & Vomiting 07/04/16 13:30 08/03/16 13:29 Ondansetron HCl (Zofran) 4 mg Q6H PRN IVP Nausea & Vomiting 07/04/16 13:30 08/03/16 13:29 Pantoprazole 40 mg 40 mg DAILY IVP 07/05/16 09:00 08/04/16 08:59 07/08/16 09:24 Patient Own Medication (Patient's Own Med) 1 ea DAILY ORAL 07/03/16 09:00 08/02/16 08:59 07/08/16 09:23 Piperacillin Sod/ Tazobactam Sod 3.375 gm/Dextrose 100 ml @ 25 mls/hr EVERY 8 HOURS IVPB 07/05/16 22:00 07/10/16 21:59 07/08/16 05:36 Vancomycin HCl 1 ea 1 ea DAILY PRN MISC Per rx protocol 07/05/16 16:45 08/04/16 16:44 Vancomycin HCl/ Dextrose (Vancomycin/D5W 250ml) 300 ml @ 150 mls/hr Q24H IVPB 07/05/16 19:00 07/10/16 18:59 07/06/16 19:19 EMMANUEL MCLCOUD Jul 08, 2016 09:43
--- NOTE | 2016-07-08 09:50 | General Surgery Progress Note ---
General Surgery-Progress Note Subjective Symptoms: improved, passing flatus Objective Last 24 Hour Vital Signs Date Time Temp Pulse Resp B/P Pulse Ox O2 Delivery O2 Flow Rate FiO2 07/08/16 08:12 99.3 71 20 125/73 95 Room Air 07/08/16 04:13 98.4 66 18 121/71 99 Room Air 07/08/16 04:02 98.1 07/07/16 23:42 98.1 67 18 122/79 97 Room Air 07/07/16 20:00 98.4 80 20 134/81 95 Room Air 07/07/16 16:00 99.3 72 20 143/86 93 Room Air 07/07/16 11:26 98.4 79 18 135/76 97 Room Air I&O Intake and Output 07/07/16 07/08/16 19:00 07:00 Intake Total 175 ml Output Total 200 ml 100 ml Balance -200 ml 75 ml IV Total 175 ml Output Urine Total 100 ml Gastric Drainage Total 200 ml # Voids 2 75 Wound: clean, intact Drains: none Abdomen: soft, non-tender, absent bowel sounds Extremities: no edema, no tenderness Laboratory Tests Test 07/08/16 07:20 White Blood Count 7.2 K/UL (4.8-10.8) Red Blood Count 4.00 M/UL (4.70-6.10) L Hemoglobin 12.0 G/DL (14.2-18.0) L Hematocrit 34.2 % (42.0-52.0) L Mean Corpuscular Volume 86 FL (80-99) Mean Corpuscular Hemoglobin 30.0 PG (27.0-31.0) Mean Corpuscular Hemoglobin Concent 35.0 G/DL (32.0-36.0) Red Cell Distribution Width 11.4 % (11.6-14.8) L Platelet Count 225 K/UL (150-450) Mean Platelet Volume 7.2 FL (6.5-10.1) Neutrophils (%) (Auto) 55.3 % (45.0-75.0) Lymphocytes (%) (Auto) 22.2 % (20.0-45.0) Monocytes (%) (Auto) 15.6 % (1.0-10.0) H Eosinophils (%) (Auto) 5.6 % (0.0-3.0) H Basophils (%) (Auto) 1.3 % (0.0-2.0) Sodium Level 143 mEQ/L (135-145) Potassium Level 4.1 mEQ/L (3.4-4.9) Chloride Level 102 mEQ/L (98-107) Carbon Dioxide Level 28 mEQ/L (20-30) Anion Gap 13 (5-15) Blood Urea Nitrogen 14 mg/dL (7-23) Creatinine 0.8 mg/dL (0.7-1.2) Estimat Glomerular Filtration Rate mL/min (>60) Glucose Level 90 mg/dL (74-106) Calcium Level 9.3 mg/dL (8.6-10.2) Assessment Additional Comments S/P SBO Plan Additional Comments continue as before ALEXEY LACY Jul 08, 2016 09:50
[2016-07-08] MEDS: HYDROmorphone 1mg/ml Carpuject IVP PRN ×4 (09:59→23:01)
[2016-07-08 11:48] VITALS: BP 128/69
--- NOTE | 2016-07-08 13:27 | Nephrology Progress Note ---
Assessment/Plan Problem List: (1) Abdominal pain (2) Elevated lipase (3) SBO (small bowel obstruction) (4) Hepatitis C (5) Hypernatremia (6) Status post exploratory laparotomy Plan Will follow surg recs pain management Hypernatremia resolved, cont D5W Hypokalemia resolved Continue NPO s/p ex-lap with adhesion lysis dietary per surgical ppi DVT prophylaxis continue abx per ID monitor surgical website admin temp AM labs Subjective Constitutional: Denies: chills, diaphoresis, fever, malaise, no symptoms, other , weakness HEENT: Denies: blurred vision, double vision, ear discharge, ear pain, eye pain , mouth pain, mouth swelling, no symptoms, nose congestion, nose pain, other, tearing, throat pain, throat swelling Genitourinary: Denies: burning, discharge, flank pain, frequency, hematuria, incontinence, no symptoms, other, pain, urgency Neurologic/Psychiatric: Denies: anxiety, depressed, emotional problems, headache, no symptoms, numbness, other, paresthesia, pre-existing deficit, seizure, tingling, tremors, weakness Subjective In bed, in no distress, states that he just wants to eat Objective Objective Last 24 Hour Vital Signs Date Time Temp Pulse Resp B/P Pulse Ox O2 Delivery O2 Flow Rate FiO2 07/08/16 11:48 99.0 75 20 128/69 95 Room Air 07/08/16 08:12 99.3 71 20 125/73 95 Room Air 07/08/16 04:13 98.4 66 18 121/71 99 Room Air 07/08/16 04:02 98.1 07/07/16 23:42 98.1 67 18 122/79 97 Room Air 07/07/16 20:00 98.4 80 20 134/81 95 Room Air 07/07/16 16:00 99.3 72 20 143/86 93 Room Air Intake and Output 07/07/16 07/08/16 18:59 06:59 Intake Total 25 ml 175 ml Output Total 200 ml 100 ml Balance -175 ml 75 ml IV Total 25 ml 175 ml Output Urine Total 100 ml Gastric Drainage Total 200 ml # Voids 2 75 Laboratory Tests 07/08/16 07:20: White Blood Count 7.2, Red Blood Count 4.00L, Hemoglobin 12.0L, Hematocrit 34.2L , Mean Corpuscular Volume 86, Mean Corpuscular Hemoglobin 30.0, Mean Corpuscular Hemoglobin Concent 35.0, Red Cell Distribution Width 11.4L, Platelet Count 225, Mean Platelet Volume 7.2, Neutrophils (%) (Auto) 55.3, Lymphocytes (%) (Auto) 22.2, Monocytes (%) (Auto) 15.6H, Eosinophils (%) (Auto) 5.6H, Basophils (%) (Auto) 1.3, Sodium Level 143, Potassium Level 4.1, Chloride Level 102, Carbon Dioxide Level 28, Anion Gap 13, Blood Urea Nitrogen 14, Creatinine 0.8, Estimat Glomerular Filtration Rate , Glucose Level 90, Calcium Level 9.3 Height (Feet): 5 Height (Inches): 7.00 Weight (Pounds): 155 General Appearance: no apparent distress, alert EENT: normal ENT inspection Neck: normal alignment, supple, normal inspection Cardiovascular: normal rate, regular rhythm, no JVD Respiratory/Chest: lungs clear, normal breath sounds Abdomen: soft, hypoactive bowel sounds - s/p ex-lap Extremities: normal range of motion, non-tender, normal inspection, no calf tenderness Neurologic: alert, oriented x 3, responsive, normal mood/affect Alona Olivera N.P. Jul 08, 2016 13:27
[2016-07-08 15:51] VITALS: BP 128/82
[2016-07-08 20:00] VITALS: BP 117/75
[2016-07-08] MEDS: Vancomycin 1.5 GM in D5W 300 ML IVPB SCH (20:04)
[2016-07-09 00:10] VITALS: BP 132/85
[2016-07-09 04:10] VITALS: BP 125/76
[2016-07-09 08:00] VITALS: BP 124/77
[2016-07-09] MEDS: Pantoprazole Inj IVP SCH (09:00)
--- NOTE | 2016-07-09 10:17 | Infectious Diseases Prog Note ---
Assessment/Plan Assessment/Plan ASSESSMENT: 70 y/o male with: Possible UTI - UCx mixed urogenital contaminants Chronic HCV, on Harvoni since 06/28/15 Acute mild leukocytosis - resolved Low grade fever x1 - resolved - risk: atelectasis, DVT, UTI, PNA, wound infection, bacteremia Partial SBO SP ex-lap, DAVID 07/04 SP traumatic self-pat removal h/o IVDA NKDA Full Code PLAN: ok to DC off of ABX from ID standpoint. Finishes empiric IV vancomycin, zosyn d# 5 / 5 today ( 07/04 SP ancef per SCIP ) continue Harvoni ( pt may take home meds ) monitor surgical site monitor CBC, temperatures Monitor CMP Subjective Allergies: Coded Allergies: No Known Allergies (Unverified , 07/01/16) Subjective remains afebrile. no new complaint tolerating PO Objective Vital Signs Last 24 Hour Vital Signs Date Time Temp Pulse Resp B/P Pulse Ox O2 Delivery O2 Flow Rate FiO2 07/09/16 08:00 98.6 87 20 124/77 94 Room Air 07/09/16 04:10 98.6 77 22 125/76 95 Room Air 07/09/16 00:10 98.1 69 20 132/85 97 Room Air 07/08/16 20:00 98.4 72 20 117/75 95 Room Air 07/08/16 15:51 97.7 68 20 128/82 99 Room Air 07/08/16 11:48 99.0 75 20 128/69 95 Room Air Height (Feet): 5 Height (Inches): 7.00 Weight (Pounds): 155 General Appearance: no acute distress Respiratory/Chest: no respiratory distress Cardiovascular: normal rate, regular rhythm Abdomen: normal bowel sounds, soft, non tender, non distended, other - incision C/D/I Laboratory Tests Test 07/08/16 18:15 Vancomycin Level Trough 2.3 ug/mL (5.0-12.0) L Current Medications Medications (Trade) Dose Ordered Sig/Chester Route PRN Reason Start Time Stop Time Status Last Admin Dose Admin Acetaminophen (Tylenol) 650 mg Q4H PRN RECTAL FEVER 07/04/16 13:30 08/03/16 13:29 07/04/16 21:32 Dextrose (D5W 1000ml) 1,000 ml @ 75 mls/hr [id number] IV 07/05/16 13:00 08/04/16 12:59 07/08/16 22:30 Dextrose (Dextrose 50%) STAT PRN IV Hypoglycemia 07/02/16 09:30 08/01/16 09:29 Enoxaparin Sodium (Lovenox) 40 mg DAILY SUBQ 07/05/16 09:00 08/04/16 08:59 07/08/16 09:29 Heparin Sodium/ Sodium Chloride (Heparin 2000 units/Ns 1000ml premix) 2,000 unit ONCE PRN INJ FOR PICC 07/10/16 06:00 07/10/16 23:59 Hydromorphone HCl (Dilaudid) 0.5 mg Q3H PRN IVP Pain Score 1-3 07/04/16 13:30 07/11/16 13:29 07/04/16 21:23 Hydromorphone HCl (Dilaudid) 1 mg Q3H PRN IVP pain score 4-6 07/08/16 10:00 07/15/16 09:59 07/08/16 23:01 Lidocaine HCl (Xylocaine 1% 30ml) 30 ml ONCE PRN INJ FOR PICC 07/10/16 06:00 07/10/16 23:59 Metoclopramide HCl (Reglan) 10 mg Q6H PRN IVP Nausea & Vomiting 07/04/16 13:30 08/03/16 13:29 Ondansetron HCl (Zofran) 4 mg Q6H PRN IVP Nausea & Vomiting 07/04/16 13:30 08/03/16 13:29 Pantoprazole 40 mg 40 mg DAILY IVP 07/05/16 09:00 08/04/16 08:59 07/08/16 09:24 Patient Own Medication (Patient's Own Med) 1 ea DAILY ORAL 07/03/16 09:00 08/02/16 08:59 07/08/16 09:23 Piperacillin Sod/ Tazobactam Sod 3.375 gm/Dextrose 100 ml @ 25 mls/hr EVERY 8 HOURS IVPB 07/05/16 22:00 07/10/16 21:59 07/08/16 22:29 Sodium Bicarbonate (Sodium Bicarbonate) 50 ml ONCE PRN IV FOR PICC INSERTION 07/10/16 06:00 07/10/16 23:59 Vancomycin HCl 1 ea 1 ea DAILY PRN MISC Per rx protocol 07/05/16 16:45 08/04/16 16:44 Vancomycin HCl/ Dextrose (Vancomycin/D5W 250ml) 300 ml @ 150 mls/hr Q24H IVPB 07/05/16 19:00 07/10/16 18:59 07/08/16 20:04 EMMAUNEL MCCLOUD Jul 09, 2016 10:17
--- NOTE | 2016-07-09 10:46 | Nephrology Progress Note ---
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 Subjective Constitutional: Denies: chills, diaphoresis, fever, malaise, no symptoms, other , weakness HEENT: Denies: blurred vision, double vision, ear discharge, ear pain, eye pain , mouth pain, mouth swelling, no symptoms, nose congestion, nose pain, other, tearing, throat pain, throat swelling Genitourinary: Denies: burning, discharge, flank pain, frequency, hematuria, incontinence, no symptoms, other, pain, urgency Neurologic/Psychiatric: Denies: anxiety, depressed, emotional problems, headache, no symptoms, numbness, other, paresthesia, pre-existing deficit, seizure, tingling, tremors, weakness Subjective In bed, in no distress, denies discomfort Objective Objective Last 24 Hour Vital Signs Date Time Temp Pulse Resp B/P Pulse Ox O2 Delivery O2 Flow Rate FiO2 07/09/16 08:00 98.6 87 20 124/77 94 Room Air 07/09/16 04:10 98.6 77 22 125/76 95 Room Air 07/09/16 00:10 98.1 69 20 132/85 97 Room Air 07/08/16 20:00 98.4 72 20 117/75 95 Room Air 07/08/16 15:51 97.7 68 20 128/82 99 Room Air 07/08/16 11:48 99.0 75 20 128/69 95 Room Air Intake and Output 07/08/16 07/09/16 19:00 07:00 Intake Total 625 ml 450 ml Output Total 850 ml 50 ml Balance -225 ml 400 ml IV Total 625 ml 450 ml Output Urine Total 800 ml Gastric Drainage Total 50 ml 50 ml # Voids 5 Laboratory Tests 07/08/16 18:15: Vancomycin Level Trough 2.3L Height (Feet): 5 Height (Inches): 7.00 Weight (Pounds): 155 General Appearance: no apparent distress, alert EENT: normal ENT inspection Neck: normal alignment, supple, normal inspection Cardiovascular: normal rate, regular rhythm Respiratory/Chest: lungs clear, normal breath sounds, no respiratory distress Abdomen: non tender, soft, no organomegaly Neurologic: alert, oriented x 3, responsive, normal mood/affect Alona Olivera N.P. Jul 09, 2016 10:46
[2016-07-09] MEDS: HARVONI ORAL SCH (10:54)
[2016-07-09] MEDS: Enoxaparin 40mg Inj SUBQ SCH (10:56)
[2016-07-09 12:00] VITALS: BP 126/87
[2016-07-09] MEDS ORDERED: traMADol 50mg tab ORAL PRN (13:45)
[2016-07-09 16:00] VITALS: BP 132/88
--- NOTE | 2016-07-09 16:21 | General Surgery Progress Note ---
General Surgery-Progress Note Subjective Symptoms: improved, BM Objective Last 24 Hour Vital Signs Date Time Temp Pulse Resp B/P Pulse Ox O2 Delivery O2 Flow Rate FiO2 07/09/16 12:00 98.4 76 18 126/87 95 Room Air 07/09/16 08:00 98.6 87 20 124/77 94 Room Air 07/09/16 04:10 98.6 77 22 125/76 95 Room Air 07/09/16 00:10 98.1 69 20 132/85 97 Room Air 07/08/16 20:00 98.4 72 20 117/75 95 Room Air I&O Intake and Output 07/08/16 07/09/16 19:00 07:00 Intake Total 625 ml 450 ml Output Total 850 ml 50 ml Balance -225 ml 400 ml IV Total 625 ml 450 ml Output Urine Total 800 ml Gastric Drainage Total 50 ml 50 ml # Voids 5 Wound: clean, intact Drains: none Respiratory: clear Abdomen: soft, distended, present bowel sounds Extremities: no tenderness Laboratory Tests Test 07/08/16 18:15 Vancomycin Level Trough 2.3 ug/mL (5.0-12.0) L Assessment Additional Comments S/P SBO Plan Additional Comments Clear liquid diet ALEXEY LACY Jul 09, 2016 16:21
[2016-07-09 20:00] VITALS: BP 110/69
[2016-07-10] VITALS: BP 130/75
[2016-07-10 04:00] VITALS: BP 115/69
[2016-07-10] MEDS ORDERED: Lidocaine 1% Plain 30 ml INJ PRN (06:00)
[2016-07-10] MEDS ORDERED: Heparin 2000 units/Ns 1000ml INJ PRN (06:00)
[2016-07-10] MEDS ORDERED: Sodium Bicarbonate 8.4% 50ml Inj IV PRN (06:00)
[2016-07-10 08:07] VITALS: BP 124/79
[2016-07-10] MEDS: Enoxaparin 40mg Inj SUBQ SCH (08:23)
[2016-07-10] MEDS: HARVONI ORAL SCH (08:24)
[2016-07-10 10:26] LABS: BASOPHILS % (AUTO) 1.5 % (0.0-2.0); EOSINOPHILS % (AUTO) 4.3 % (0.0-3.0); LYMPHOCYTES % (AUTO) 16.3 % (20.0-45.0); MEAN CORPUSCULAR HEMOGLOBIN 29.2 PG (27.0-31.0); MEAN CORPUSCULAR HGB CONC 34.1 G/DL (32.0-36.0); MEAN CORPUSCULAR VOLUME 86 FL (80-99); MEAN PLATELET VOLUME 6.1 FL (6.5-10.1); MONOCYTES % (AUTO) 14.8 % (1.0-10.0); PLATELET COUNT 264 K/UL (150-450); RED CELL DISTRIBUTION WIDTH 11.4 % (11.6-14.8); WHITE BLOOD COUNT 6.9 K/UL (4.8-10.8)
--- NOTE | 2016-07-10 10:27 | GI Progress Note ---
Assessment/Plan Problems: (1) Elevated lipase ICD Codes: R74.8 - Abnormal levels of other serum enzymes SNOMED: 340957281 (2) Abdominal pain ICD Codes: R10.9 - Unspecified abdominal pain SNOMED: 06484879 (3) Partial small bowel obstruction ICD Codes: K56.69 - Other intestinal obstruction SNOMED: 976409840 (4) Hepatitis C ICD Codes: B19.20 - Unspecified viral hepatitis C without hepatic coma SNOMED: 32281541 Qualifiers: (5) Status post exploratory laparotomy ICD Codes: Z98.890 - Other specified postprocedural states SNOMED: 80017334, 52927304, 248792751 Status: stable, progressing Status Narrative Discussed with Dr. Leach. Assessment/Plan f/u surgical recs s/p ex-lap with adhesion lysis dietary per surgical ppi fu labs outpatient Hep C tx Subjective Gastrointestinal/Abdominal: Reports: no symptoms Subjective hunger Objective Last 24 Hour Vital Signs Date Time Temp Pulse Resp B/P Pulse Ox O2 Delivery O2 Flow Rate FiO2 07/10/16 08:07 97.7 68 18 124/79 99 Room Air 07/10/16 04:00 99.0 71 19 115/69 97 Room Air 07/10/16 00:00 99.4 72 20 130/75 95 Room Air 07/09/16 20:00 98.4 69 20 110/69 98 Room Air 07/09/16 16:00 98.6 74 20 132/88 97 Room Air 07/09/16 12:00 98.4 76 18 126/87 95 Room Air Intake and Output 07/09/16 07/10/16 19:00 07:00 Intake Total 240 ml 360 ml Balance 240 ml 360 ml Intake Oral 240 ml 360 ml # Voids 1 5 Laboratory Tests Test 07/10/16 10:00 White Blood Count Pending Red Blood Count Pending Hemoglobin Pending Hematocrit Pending Mean Corpuscular Volume Pending Mean Corpuscular Hemoglobin Pending Mean Corpuscular Hemoglobin Concent Pending Red Cell Distribution Width Pending Platelet Count Pending Mean Platelet Volume Pending Neutrophils (%) (Auto) Pending Lymphocytes (%) (Auto) Pending Monocytes (%) (Auto) Pending Eosinophils (%) (Auto) Pending Basophils (%) (Auto) Pending Sodium Level Pending Potassium Level Pending Chloride Level Pending Carbon Dioxide Level Pending Blood Urea Nitrogen Pending Creatinine Pending Estimat Glomerular Filtration Rate Pending Glucose Level Pending Calcium Level Pending Height (Feet): 5 Height (Inches): 7.00 Weight (Pounds): 155 General Appearance: no apparent distress, alert Cardiovascular: normal rate Respiratory/Chest: normal breath sounds, no respiratory distress Abdominal Exam: normal bowel sounds, non tender, soft Extremities: normal range of motion Objective DATE OF OPERATION: 07/04/2016 PREOPERATIVE DIAGNOSIS: Small bowel obstruction. POSTOPERATIVE DIAGNOSIS: Small bowel obstruction. OPERATION: 1. Exploratory laparotomy. 2. Lysis of the adhesion. 3. Enterorrhaphy. SURGEON: Lashon Acevedo M.D. ANESTHESIOLOGIST: Brown Carvajal M.D. INDICATIONS: This is a 70-year-old, male, who presented to emergency room on 07/02/2016 for one-day history of abdominal pain and vomiting. Physical examination showed distended abdomen without any tenderness. CBC and UA were normal. CAT scan showed dilated small bowel loops and it was interpreted as partial small bowel obstruction. The patient was admitted to the hospital and was started on conservative treatment with IV fluid and NG suction, but the patient continued with distention and obstipation. Yesterday, a Gastrografin and small bowel followthrough was obtained last night which showed that the contrast went only senior living in the small bowel. So this morning the another KUB was obtained, which did not show contrast in the colon and the KUB showed persistence of the dilated small bowel loops. So, the decision was made for the exploratory laparotomy. Alma Encinas N.P. Jul 10, 2016 10:27
--- NOTE | 2016-07-10 10:29 | Diagnostic Imaging Report ---
Indications: ABD PAIN Technique: Portable supine AP abdomen Findings: Comparison: 07/04/2016 Small bowel dilation has resolved. Increased gas present throughout colon to rectum. Skin eduardo overlie the midline lower abdomen and pelvis. Nasogastric tube has been removed. No other change. IMPRESSION: Interval abdominal surgery with resolution of obstructive bowel gas pattern Removal of nasogastric tube No current evidence of acute abdominopelvic disease
[2016-07-10 10:37] LABS: ANION GAP 16 (5-15); CALCIUM 8.9 mg/dL (8.6-10.2); CARBON DIOXIDE 26 mEQ/L (20-30); CHLORIDE 101 mEQ/L (98-107); CREATININE 0.9 mg/dL (0.7-1.2); HEMOLYSIS 4; POTASSIUM 2.8 mEQ/L (3.4-4.9); SODIUM 143 mEQ/L (135-145)
[2016-07-10 11:50] VITALS: BP 134/80
--- NOTE | 2016-07-10 12:54 | Nephrology Progress Note ---
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 Subjective Constitutional: Denies: chills, diaphoresis, fever, malaise, no symptoms, other , weakness HEENT: Denies: blurred vision, double vision, ear discharge, ear pain, eye pain , mouth pain, mouth swelling, no symptoms, nose congestion, nose pain, other, tearing, throat pain, throat swelling Genitourinary: Denies: burning, discharge, flank pain, frequency, hematuria, incontinence, no symptoms, other, pain, urgency Neurologic/Psychiatric: Denies: anxiety, depressed, emotional problems, headache, no symptoms, numbness, other, paresthesia, pre-existing deficit, seizure, tingling, tremors, weakness Subjective In bed, in no distress, denies discomfort Objective Objective Last 24 Hour Vital Signs Date Time Temp Pulse Resp B/P Pulse Ox O2 Delivery O2 Flow Rate FiO2 07/10/16 11:50 98.1 68 18 134/80 97 Room Air 07/10/16 08:07 97.7 68 18 124/79 99 Room Air 07/10/16 04:00 99.0 71 19 115/69 97 Room Air 07/10/16 00:00 99.4 72 20 130/75 95 Room Air 07/09/16 20:00 98.4 69 20 110/69 98 Room Air 07/09/16 16:00 98.6 74 20 132/88 97 Room Air Intake and Output 07/09/16 07/10/16 19:00 07:00 Intake Total 240 ml 360 ml Balance 240 ml 360 ml Intake Oral 240 ml 360 ml # Voids 1 5 Laboratory Tests 07/10/16 10:00: White Blood Count 6.9, Red Blood Count 4.30L, Hemoglobin 12.6L, Hematocrit 36.8L , Mean Corpuscular Volume 86, Mean Corpuscular Hemoglobin 29.2, Mean Corpuscular Hemoglobin Concent 34.1, Red Cell Distribution Width 11.4L, Platelet Count 264, Mean Platelet Volume 6.1L, Neutrophils (%) (Auto) 63.0, Lymphocytes (%) (Auto) 16.3L, Monocytes (%) (Auto) 14.8H, Eosinophils (%) (Auto ) 4.3H, Basophils (%) (Auto) 1.5, Sodium Level 143, Potassium Level 2.8L, Chloride Level 101, Carbon Dioxide Level 26, Anion Gap 16H, Blood Urea Nitrogen 9, Creatinine 0.9, Estimat Glomerular Filtration Rate , Glucose Level 96, Calcium Level 8.9 Height (Feet): 5 Height (Inches): 7.00 Weight (Pounds): 155 General Appearance: no apparent distress, alert EENT: normal ENT inspection, TMs normal Neck: normal alignment, supple Cardiovascular: normal rate, regular rhythm Respiratory/Chest: lungs clear, normal breath sounds, no respiratory distress Abdomen: soft, tender - s/p ex-lap Extremities: normal range of motion Neurologic: alert, oriented x 3, responsive, normal mood/affect Alona Olivera N.P. Jul 10, 2016 12:54
--- NOTE | 2016-07-10 15:40 | General Surgery Progress Note ---
General Surgery-Progress Note Subjective Symptoms: improved, BM Objective Last 24 Hour Vital Signs Date Time Temp Pulse Resp B/P Pulse Ox O2 Delivery O2 Flow Rate FiO2 07/10/16 11:50 98.1 68 18 134/80 97 Room Air 07/10/16 08:07 97.7 68 18 124/79 99 Room Air 07/10/16 04:00 99.0 71 19 115/69 97 Room Air 07/10/16 00:00 99.4 72 20 130/75 95 Room Air 07/09/16 20:00 98.4 69 20 110/69 98 Room Air 07/09/16 16:00 98.6 74 20 132/88 97 Room Air I&O Intake and Output 07/09/16 07/10/16 19:00 07:00 Intake Total 240 ml 360 ml Balance 240 ml 360 ml Intake Oral 240 ml 360 ml # Voids 1 5 Wound: clean, intact Drains: none Respiratory: clear Abdomen: soft, flat, non-tender, present bowel sounds Extremities: no edema, no tenderness Laboratory Tests Test 07/10/16 10:00 White Blood Count 6.9 K/UL (4.8-10.8) Red Blood Count 4.30 M/UL (4.70-6.10) L Hemoglobin 12.6 G/DL (14.2-18.0) L Hematocrit 36.8 % (42.0-52.0) L Mean Corpuscular Volume 86 FL (80-99) Mean Corpuscular Hemoglobin 29.2 PG (27.0-31.0) Mean Corpuscular Hemoglobin Concent 34.1 G/DL (32.0-36.0) Red Cell Distribution Width 11.4 % (11.6-14.8) L Platelet Count 264 K/UL (150-450) Mean Platelet Volume 6.1 FL (6.5-10.1) L Neutrophils (%) (Auto) 63.0 % (45.0-75.0) Lymphocytes (%) (Auto) 16.3 % (20.0-45.0) L Monocytes (%) (Auto) 14.8 % (1.0-10.0) H Eosinophils (%) (Auto) 4.3 % (0.0-3.0) H Basophils (%) (Auto) 1.5 % (0.0-2.0) Sodium Level 143 mEQ/L (135-145) Potassium Level 2.8 mEQ/L (3.4-4.9) L Chloride Level 101 mEQ/L (98-107) Carbon Dioxide Level 26 mEQ/L (20-30) Anion Gap 16 (5-15) H Blood Urea Nitrogen 9 mg/dL (7-23) Creatinine 0.9 mg/dL (0.7-1.2) Estimat Glomerular Filtration Rate mL/min (>60) Glucose Level 96 mg/dL (74-106) Calcium Level 8.9 mg/dL (8.6-10.2) Assessment Additional Comments S/P SBO Plan Additional Comments can be discharged in AM ALEXEY LACY Jul 10, 2016 15:40
[2016-07-10 16:00] VITALS: BP 121/79
--- NOTE | 2016-07-10 17:09 | Infectious Diseases Prog Note ---
Assessment/Plan Assessment/Plan ASSESSMENT: 70 y/o male with: Possible UTI - UCx mixed urogenital contaminants SP Rx Chronic HCV, on Harvoni since 06/28/15 Acute mild leukocytosis - resolved Low grade fever x1 - resolved Partial SBO SP ex-lap, DAVID 07/04 SP traumatic self-pat removal h/o IVDA NKDA Full Code PLAN: ok to DC off of ABX from ID standpoint. 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 no new complaint tolerating PO Objective Vital Signs Last 24 Hour Vital Signs Date Time Temp Pulse Resp B/P Pulse Ox O2 Delivery O2 Flow Rate FiO2 07/10/16 16:00 98.2 73 22 121/79 98 Room Air 07/10/16 11:50 98.1 68 18 134/80 97 Room Air 07/10/16 08:07 97.7 68 18 124/79 99 Room Air 07/10/16 04:00 99.0 71 19 115/69 97 Room Air 07/10/16 00:00 99.4 72 20 130/75 95 Room Air 07/09/16 20:00 98.4 69 20 110/69 98 Room Air Height (Feet): 5 Height (Inches): 7.00 Weight (Pounds): 155 General Appearance: no acute distress Respiratory/Chest: no respiratory distress Cardiovascular: normal rate, regular rhythm Abdomen: normal bowel sounds, soft, non tender, non distended, other - incision C/D/I Laboratory Tests Test 07/10/16 10:00 White Blood Count 6.9 K/UL (4.8-10.8) Red Blood Count 4.30 M/UL (4.70-6.10) L Hemoglobin 12.6 G/DL (14.2-18.0) L Hematocrit 36.8 % (42.0-52.0) L Mean Corpuscular Volume 86 FL (80-99) Mean Corpuscular Hemoglobin 29.2 PG (27.0-31.0) Mean Corpuscular Hemoglobin Concent 34.1 G/DL (32.0-36.0) Red Cell Distribution Width 11.4 % (11.6-14.8) L Platelet Count 264 K/UL (150-450) Mean Platelet Volume 6.1 FL (6.5-10.1) L Neutrophils (%) (Auto) 63.0 % (45.0-75.0) Lymphocytes (%) (Auto) 16.3 % (20.0-45.0) L Monocytes (%) (Auto) 14.8 % (1.0-10.0) H Eosinophils (%) (Auto) 4.3 % (0.0-3.0) H Basophils (%) (Auto) 1.5 % (0.0-2.0) Sodium Level 143 mEQ/L (135-145) Potassium Level 2.8 mEQ/L (3.4-4.9) L Chloride Level 101 mEQ/L (98-107) Carbon Dioxide Level 26 mEQ/L (20-30) Anion Gap 16 (5-15) H Blood Urea Nitrogen 9 mg/dL (7-23) Creatinine 0.9 mg/dL (0.7-1.2) Estimat Glomerular Filtration Rate mL/min (>60) Glucose Level 96 mg/dL (74-106) Calcium Level 8.9 mg/dL (8.6-10.2) Current Medications Medications (Trade) Dose Ordered Sig/[place]ster Route PRN Reason Start Time Stop Time Status Last Admin Dose Admin Acetaminophen (Tylenol) 650 mg Q4H PRN RECTAL FEVER 07/04/16 13:30 08/03/16 13:29 07/04/16 21:32 Dextrose (Dextrose 50%) STAT PRN IV Hypoglycemia 07/02/16 09:30 08/01/16 09:29 Enoxaparin Sodium (Lovenox) 40 mg DAILY SUBQ 07/05/16 09:00 08/04/16 08:59 07/10/16 08:23 Heparin Sodium/ Sodium Chloride (Heparin 2000 units/Ns 1000ml premix) 2,000 unit ONCE PRN INJ FOR PICC 07/10/16 06:00 07/10/16 23:59 Lidocaine HCl (Xylocaine 1% 30ml) 30 ml ONCE PRN INJ FOR PICC 07/10/16 06:00 07/10/16 23:59 Metoclopramide HCl (Reglan) 10 mg THREE TIMES A DAY ORAL 07/09/16 18:00 08/08/16 17:59 07/10/16 08:22 Ondansetron HCl (Zofran) 4 mg Q6H PRN IVP Nausea & Vomiting 07/04/16 13:30 08/03/16 13:29 Pantoprazole (Protonix) 40 mg DAILY ORAL 07/10/16 09:00 08/09/16 08:59 07/10/16 08:22 Patient Own Medication (Patient's Own Med) 1 ea DAILY ORAL 07/03/16 09:00 08/02/16 08:59 07/10/16 08:24 Potassium Chloride (K-Dur) 20 meq DAILY ORAL 07/11/16 09:00 08/10/16 08:59 Sodium Bicarbonate (Sodium Bicarbonate) 50 ml ONCE PRN IV FOR PICC INSERTION 07/10/16 06:00 07/10/16 23:59 Tramadol HCl (Ultram) 50 mg Q4H PRN ORAL For Pain 07/09/16 13:45 07/16/16 13:44 EMMANUEL MCCLOUD Jul 10, 2016 17:09
[2016-07-10 20:00] VITALS: BP 148/91
[2016-07-11 00:32] VITALS: BP 130/86
[2016-07-11 04:20] VITALS: BP 132/77
[2016-07-11 07:23] LABS: BASOPHILS % (AUTO) 1.4 % (0.0-2.0); EOSINOPHILS % (AUTO) 3.6 % (0.0-3.0); LYMPHOCYTES % (AUTO) 28.5 % (20.0-45.0); MEAN CORPUSCULAR HEMOGLOBIN 29.9 PG (27.0-31.0); MEAN CORPUSCULAR HGB CONC 34.9 G/DL (32.0-36.0); MEAN CORPUSCULAR VOLUME 86 FL (80-99); MEAN PLATELET VOLUME 6.3 FL (6.5-10.1); MONOCYTES % (AUTO) 14.1 % (1.0-10.0); NEUTROPHILS % (AUTO) 52.3 % (45.0-75.0); PLATELET COUNT 253 K/UL (150-450); RED BLOOD COUNT 3.91 M/UL (4.70-6.10); RED CELL DISTRIBUTION WIDTH 11.5 % (11.6-14.8); WHITE BLOOD COUNT 6.3 K/UL (4.8-10.8)
[2016-07-11 08:00] VITALS: BP 140/83
[2016-07-11 08:00] LABS: ALANINE AMINOTRANSFERASE 17 U/L (3-41); ANION GAP 16 (5-15); ASPARTATE AMINO TRANSFERASE 27 U/L (5-40); CALCIUM 8.9 mg/dL (8.6-10.2); CARBON DIOXIDE 25 mEQ/L (20-30); CHLORIDE 103 mEQ/L (98-107); HEMOLYSIS 7; POTASSIUM 3.6 mEQ/L (3.4-4.9); SODIUM 144 mEQ/L (135-145); TOTAL PROTEIN 6.2 g/dL (6.6-8.7)
[2016-07-11] MEDS: Enoxaparin 40mg Inj SUBQ SCH (09:00)
[2016-07-11] MEDS: HARVONI ORAL SCH (09:41)
--- NOTE | 2016-07-11 09:52 | GI Progress Note ---
Assessment/Plan Problems: (1) Elevated lipase ICD Codes: R74.8 - Abnormal levels of other serum enzymes SNOMED: 485990132 (2) Abdominal pain ICD Codes: R10.9 - Unspecified abdominal pain SNOMED: 82429403 (3) Partial small bowel obstruction ICD Codes: K56.69 - Other intestinal obstruction SNOMED: 652295987 (4) Hepatitis C ICD Codes: B19.20 - Unspecified viral hepatitis C without hepatic coma SNOMED: 72839129 Qualifiers: (5) Status post exploratory laparotomy ICD Codes: Z98.890 - Other specified postprocedural states SNOMED: 62739220, 25894507, 723678062 Status: stable Status Narrative Discussed with Dr. Leach. Assessment/Plan ok for DC per GI standpoint f/u surgical recs s/p ex-lap with adhesion lysis regular diet, tolerating ppi fu labs outpatient Hep C tx Subjective Subjective feeling well Objective Last 24 Hour Vital Signs Date Time Temp Pulse Resp B/P Pulse Ox O2 Delivery O2 Flow Rate FiO2 07/11/16 08:00 96.9 66 18 140/83 100 Room Air 07/11/16 04:20 97.0 67 20 132/77 98 Room Air 07/11/16 00:32 97.0 73 20 130/86 96 Room Air 07/10/16 20:00 99.9 67 20 148/91 98 Room Air 07/10/16 16:00 98.2 73 22 121/79 98 Room Air 07/10/16 11:50 98.1 68 18 134/80 97 Room Air Intake and Output 07/10/16 07/11/16 19:00 07:00 Intake Total 480 ml 600 ml Balance 480 ml 600 ml Intake Oral 480 ml 600 ml # Voids 2 2 # Bowel Movements 1 Laboratory Tests Test 07/10/16 10:00 07/11/16 06:25 White Blood Count 6.9 K/UL (4.8-10.8) 6.3 K/UL (4.8-10.8) Red Blood Count 4.30 M/UL (4.70-6.10) L 3.91 M/UL (4.70-6.10) L Hemoglobin 12.6 G/DL (14.2-18.0) L 11.7 G/DL (14.2-18.0) L Hematocrit 36.8 % (42.0-52.0) L 33.6 % (42.0-52.0) L Mean Corpuscular Volume 86 FL (80-99) 86 FL (80-99) Mean Corpuscular Hemoglobin 29.2 PG (27.0-31.0) 29.9 PG (27.0-31.0) Mean Corpuscular Hemoglobin Concent 34.1 G/DL (32.0-36.0) 34.9 G/DL (32.0-36.0) Red Cell Distribution Width 11.4 % (11.6-14.8) L 11.5 % (11.6-14.8) L Platelet Count 264 K/UL (150-450) 253 K/UL (150-450) Mean Platelet Volume 6.1 FL (6.5-10.1) L 6.3 FL (6.5-10.1) L Neutrophils (%) (Auto) 63.0 % (45.0-75.0) 52.3 % (45.0-75.0) Lymphocytes (%) (Auto) 16.3 % (20.0-45.0) L 28.5 % (20.0-45.0) Monocytes (%) (Auto) 14.8 % (1.0-10.0) H 14.1 % (1.0-10.0) H Eosinophils (%) (Auto) 4.3 % (0.0-3.0) H 3.6 % (0.0-3.0) H Basophils (%) (Auto) 1.5 % (0.0-2.0) 1.4 % (0.0-2.0) Sodium Level 143 mEQ/L (135-145) 144 mEQ/L (135-145) Potassium Level 2.8 mEQ/L (3.4-4.9) L 3.6 mEQ/L (3.4-4.9) Chloride Level 101 mEQ/L (98-107) 103 mEQ/L (98-107) Carbon Dioxide Level 26 mEQ/L (20-30) 25 mEQ/L (20-30) Anion Gap 16 (5-15) H 16 (5-15) H Blood Urea Nitrogen 9 mg/dL (7-23) 9 mg/dL (7-23) Creatinine 0.9 mg/dL (0.7-1.2) 1.0 mg/dL (0.7-1.2) Estimat Glomerular Filtration Rate mL/min (>60) mL/min (>60) Glucose Level 96 mg/dL (74-106) 90 mg/dL (74-106) Calcium Level 8.9 mg/dL (8.6-10.2) 8.9 mg/dL (8.6-10.2) Total Bilirubin 0.5 mg/dL (0.0-1.2) Aspartate Amino Transf (AST/SGOT) 27 U/L (5-40) Alanine Aminotransferase (ALT/SGPT) 17 U/L (3-41) Alkaline Phosphatase 52 U/L (40-129) Total Protein 6.2 g/dL (6.6-8.7) L Albumin 3.1 g/dL (3.5-5.2) L Globulin 3.1 g/dL Albumin/Globulin Ratio 1.0 (1.0-2.7) Height (Feet): 5 Height (Inches): 7.00 Weight (Pounds): 155 General Appearance: no apparent distress Cardiovascular: normal rate Respiratory/Chest: normal breath sounds Abdominal Exam: normal bowel sounds, non tender, soft, other - reports BM / passing gas Extremities: normal range of motion Objective DATE OF OPERATION: 07/04/2016 PREOPERATIVE DIAGNOSIS: Small bowel obstruction. POSTOPERATIVE DIAGNOSIS: Small bowel obstruction. OPERATION: 1. Exploratory laparotomy. 2. Lysis of the adhesion. 3. Enterorrhaphy. SURGEON: Lashon Acevedo M.D. ANESTHESIOLOGIST: Brown Carvajal M.D. INDICATIONS: This is a 70-year-old, male, who presented to emergency room on 07/02/2016 for one-day history of abdominal pain and vomiting. Physical examination showed distended abdomen without any tenderness. CBC and UA were normal. CAT scan showed dilated small bowel loops and it was interpreted as partial small bowel obstruction. The patient was admitted to the hospital and was started on conservative treatment with IV fluid and NG suction, but the patient continued with distention and obstipation. Yesterday, a Gastrografin and small bowel followthrough was obtained last night which showed that the contrast went only fci in the small bowel. So this morning the another KUB was obtained, which did not show contrast in the colon and the KUB showed persistence of the dilated small bowel loops. So, the decision was made for the exploratory laparotomy. Alma Encinas N.P. Jul 11, 2016 09:52
--- NOTE | 2016-07-11 11:56 | Diagnostic Imaging Report ---
Indication: Abdominal pain Technique: Continuous helical transaxial imaging of the abdomen and pelvis was obtained from the lung bases to the pubic symphysis during intravenous contrast administration. Coronal 2-D reformats were also obtained. Study obtained in a Siemens sensation [address] Total Dose length Product (DLP): [address] Dose Index Volume (CTDIvol): 14 mGy Comparison: None Findings: Some distended loops of small bowel are demonstrated within the midabdomen and lower abdomen. Although a definite transition is not identified there are more decompressed loops of small bowel demonstrated within the pelvis and right lower quadrant. Findings suggestive of a small bowel obstruction. There is a curvilinear orientation of some of the mesenteric vessels in the lower abdomen which could represent a internal hernia. There is no pneumatosis or free air. Few peripancreatic calcifications and a left renal hilar calcification noted. These may been calcified nodes. There is a large left parapelvic cyst versus extrarenal pelvis. Posterior basilar fibrosis versus atelectasis demonstrated. Arterial vascular calcifications are present. Gallbladder is unremarkable. Urinary bladder is unremarkable. The bones are osteopenic. There is narrowing of intervertebral discs and accompanying endplate osteophyte formation. Hypertrophied facet joints also demonstrated. Impression: Suspicion of small bowel obstruction due to an internal hernia. The current study as obtained is significantly limited because of the absence of enteric contrast. Peripancreatic calcifications likely mane. 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 Posterior basilar atelectasis and/or mild fibrosis. Atherosclerotic vascular disease Left parapelvic cyst versus extrarenal pelvis Spondylosis and osteopenia [facility] has communicated the preliminary results to the Emergency Department. Their findings are largely concordant with this report. The CT scanner at [facility] is accredited by the [employer] and the scans are performed using protocols designed to limit radiation exposure to as low as reasonably achievable to attain images of sufficient resolution adequate for diagnostic evaluation.
[2016-07-11 12:00] VITALS: BP 133/89
--- NOTE | 2016-07-12 12:37 | Discharge Summary ---
Discharge Summary Hospital Course Date of Admission Jul 02, 2016 at 01:39 Date of Discharge Jul 11, 2016 at 12:55 Admitting Diagnosis Partial Bowel Obstruction ASHIA Mosqueda is a 70 year old male who was admitted on Jul 02, 2016 at 01:39 for Partial Bowel Obstruction Hospital Course dc summary dictated #[id number] Discharge Medications Continued Medications: Ledipasvir/Sofosbuvir (Harvoni 90-400 mg Tablet) 1 Each Tablet 1 EACH PO, TAB Discharge Condition Upon Discharge: improving, stable Discharge Disposition Patient was discharged to Home with Home Health(06) Discharge Diagnoses: Discharge Instructions Discharge Instructions Special Instructions I have been assigned to complete a D/C Summary on this account. I was not involved in the patient management Macey Wooten NP ([place]te[place]) Jul 12, 2016 12:37
--- NOTE | 2016-07-13 02:27 | Discharge Summary 2 SIG ---
DATE OF ADMISSION: 07/02/2016 DATE OF DISCHARGE: 07/11/2016 REASON FOR ADMISSION: The patient is a 70-year-old male who presented to the emergency room complaining of abdominal pain localized around the mid abdomen, sharp, nonradiating with nausea and vomiting. He denied chest pain, shortness of breath, fever, or chills. The patient has a history of small bowel obstruction five months ago at [facility], which resolved conservatively, history of hepatitis C, and appendectomy. CT of the abdomen and pelvis revealed partial small bowel obstruction. The patient admitted for further management. ADMITTING DIAGNOSES: 1. Partial small bowel obstruction. 2. Abdominal pain. HOSPITAL STAY: Surgery consult and GI consult as well as ID consult requested immediately. Surgeon seen the patient and decided to try initially conservative treatment. The patient was NPO , on the IV fluids. NG tube inserted to low intermittent suction. Small bowel follow-through with Gastrografin revealed block of passage of administered Gastrografin with suggestion of small bowel obstruction versus severe ileus. GI followed as well. Antiemetic provided as needed. The patient started on GI prophylaxis. The patient was not improved conservatively. Abdominal x-ray done on 07/04/2016 revealed persistent small bowel dilatation. After signing consent, the patient was taken for surgery. The patient undergone subsequently exploratory laparotomy and lysis of adhesions on 07/04/2016. Course of recovery was uneventful. Initially was NPO with IV fluids. Pain management was provided. After bowel sounds returned, he started on clear liquids, diet further advanced as tolerated. The patient was able to tolerate diet. He had a bowel movement. The pain was controlled with current regimen. The patient had an incident of self removal of the Browning catheter and apparently self-inflicted trauma. Urology consult was requested, The patient was able to void freely. There was initially small amount of hematuria and clots, however, it cleared. The patient declined further Browning catheter. Per Urology, trauma was self-inflicted after removal of Browning catheter, but as long as patient was voiding freely , no need for further intervention. ID cleared the patient off IV antibiotics. Urine culture revealed mixed urogenital contaminant. The patient was afebrile, no leukocytosis. GI recommended outpatient treatment for hepatitis C. All consultants cleared the patient for discharge. The patient was stable for discharge. FINAL DIAGNOSES: 1. Small bowel obstruction. 2. Status post exploratory laparotomy with lysis of adhesions on 07/04/2016. 3. Abdominal pain secondary to small-bowel obstruction. 4. Hepatitis C status 5. Status post traumatic Browning catheter removal, voiding freely. 6. History of intravenous drug abuse. DISCHARGE MEDICATIONS: See medication reconciliation list. DISCHARGE INSTRUCTIONS: The patient to follow up with the primary medical doctor and surgeon. The patient advised to follow up with GI as outpatient for hepatitis C treatment to be continued. Dante Peralta M.D. I have been assigned to dictate discharge summary on this account and I was not involved in the patient's management. Macey HustonNeponsit Beach HospitalChris N.PChristie DR: Chante JOB#: [id number] CC: ELICIA
== END 2016-07-11 12:55 | disposition home health service (06) | DRG 330 ==
LOC: EDBD 22:31 → EMR 23:00 → OBSVTOIN 07-02 01:39 → INTOOBSV 07-02 01:39 → 4W 07-02 01:39 → EDBEDREQ 07-02 05:37 → 4W 07-07 00:36
PROC: 0DN80ZZ Release Small Intestine, Open Approach (ICD-10-PCS; principal; 2016-07-04 12:00)
PROC: 0DQ80ZZ Repair Small Intestine, Open Approach (ICD-10-PCS; principal; 2016-07-04 12:00)
DX: K56.5 Intestinal adhesions [bands] with obstruction (postinfection) (principal); E87.0 Hyperosmolality and hypernatremia; R31.9 Hematuria, unspecified; D72.829 Elevated white blood cell count, unspecified; B19.20 Unspecified viral hepatitis C without hepatic coma; B18.2 Chronic viral hepatitis C; R74.8 Abnormal levels of other serum enzymes
CPT/HCPCS: 36415; 74000; 74177; 74250; 80048; 80053; 80202; 81001; 81003; 82248; 83690; 83735; 85025; 87086; 94003; 94150; J2250; J2405; J2710; J2765; J8499

== ENCOUNTER 2016-07-18 22:01 | Inpatient (IN) | payer MEDICARE, MEDICAID ==
[~2016-07-18] VITALS: Ht 162.6 cm; Wt 65.8 kg
[~2016-07-18 22:01] MED LIST changes: +HARVONI 90-4001 EACH PO; -Morphine Sulfate 4mg/ml Inj IVP ONE
[2016-07-18 22:28] VITALS: BP 140/62
[2016-07-18] MEDS ORDERED: HYDROmorphone 1mg/ml Carpuject IM ONE (23:15)
[2016-07-18] MEDS ORDERED: HYDROmorphone 1mg/ml Carpuject IVP ONE (23:15)
[2016-07-18 23:33] LABS: APPEARANCE,URINE CLEAR; BASOPHILS % (AUTO) 1.6 % (0.0-2.0); EOSINOPHILS % (AUTO) 3.3 % (0.0-3.0); KETONES,URINE NEGATIVE (NEGATIVE); LEUKOCYTE ESTERASE ,URINE 1+ (NEGATIVE); LYMPHOCYTES % (AUTO) 19.4 % (20.0-45.0); MEAN CORPUSCULAR HEMOGLOBIN 29.5 PG (27.0-31.0); MEAN CORPUSCULAR VOLUME 87 FL (80-99); MEAN PLATELET VOLUME 5.4 FL (6.5-10.1); NEUTROPHILS % (AUTO) 67.8 % (45.0-75.0); NITRITE,URINE NEGATIVE (NEGATIVE); PH,URINE 8 (4.5-8.0); PLATELET COUNT 409 K/UL (150-450); PROTEIN,URINE NEGATIVE (NEGATIVE); RED BLOOD COUNT 4.48 M/UL (4.70-6.10); RED CELL DISTRIBUTION WIDTH 11.3 % (11.6-14.8); UROBILINOGEN,URINE NORMAL MG/DL (0.0-1.0); WHITE BLOOD COUNT 7.3 K/UL (4.8-10.8)
[2016-07-18 23:52] LABS: ALANINE AMINOTRANSFERASE 41 U/L (3-41); ALBUMIN/GLOBULIN RATIO 1.1 (1.0-2.7); ASPARTATE AMINO TRANSFERASE 47 U/L (5-40); CALCIUM 10.2 mg/dL (8.6-10.2); CARBON DIOXIDE 28 mEQ/L (20-30); CREATININE 0.8 mg/dL (0.7-1.2); HEMOLYSIS 13; LIPASE 82 U/L (< 60)
[2016-07-18 23:53] LABS: ANION GAP 16 (5-15); CHLORIDE 97 mEQ/L (98-107); SODIUM 141 mEQ/L (135-145)
[2016-07-19] VITALS (8 sets, daily range): BP systolic 123–138; BP diastolic 81–89
[2016-07-19 00:28] LABS: BACTERIA,URINE FEW /HPF; MUCUS,URINE FEW /LPF (NONE/OCC); RBC,URINE 0-2 /HPF (0 - 0); SQUAMOUS EPITHELIAL CELL,UR FEW /LPF (NONE/OCC)
--- NOTE | 2016-07-19 00:56 | Emergency Room Report ---
History of Present Illness General Chief Complaint: Abdominal Pain Source: Patient, Medical Record, EMS Present Illness HPI This is a 70-year-old male who had recent abdominal surgery for small bowel obstruction here about 2 weeks ago. He was doing well at home until about an hour prior to arrival. He said he had acute onset abdominal pain felt very nauseous. Had is a large emesis here. Pain was 10 out of 10. No fever or chills. Pain localized to the abdomen. No radiation. No diarrhea. No trauma. Allergies: Coded Allergies: No Known Allergies (Unverified , 07/01/16) Patient History Past Medical History: see triage record, old chart reviewed Past Surgical History: other Pertinent Family History: none Social History: Denies: smoking Immunizations: other Reviewed Nursing Documentation: PMH: Agreed, PSxH: Agreed Nursing Documentation-PM Past Medical History: No History, Except For Hx Cardiac Problems: No - Partial small bowel obstruction, elevated lipase, hypernatremia Hx Cancer: No Hx Gastrointestinal Problems: Yes - HEP C Hx Neurological Problems: No Review of Systems Eye: Denies: blurred vision, eye pain ENT: Denies: ear pain, nose congestion, throat swelling Respiratory: Denies: cough, shortness of breath Cardiovascular: Denies: chest pain, palpitations Gastrointestinal: Reports: abdominal pain, nausea, vomiting, Denies: diarrhea Musculoskeletal: Denies: back pain, joint pain Skin: Denies: rash Neurological: Denies: headache, numbness Endocrine: Denies: increased thirst, increased urine Hematologic/Lymphatic: Denies: easy bruising All Other Systems: negative except mentioned in HPI Physical Exam Vital Signs Date Time Temp Pulse Resp B/P Pulse Ox O2 Delivery O2 Flow Rate FiO2 07/18/16 22:18 96.6 82 14 143/82 98 Room Air vitals unremarkable [id number] EP Interpretation: reviewed, normal General Appearance: well appearing, alert, moderate distress - From pain Head: normocephalic, atraumatic Eyes: bilateral eye EOMI, bilateral eye PERRL ENT: hearing grossly normal, normal pharynx Neck: full range of motion, supple, no meningismus Respiratory: chest non-tender, lungs clear, normal breath sounds Cardiovascular #1: regular rate, rhythm, no murmur Gastrointestinal: no mass, no organomegaly, no bruit, non-distended, abnormal bowel sounds - Hypoactive, tenderness - Diffuse Musculoskeletal: back normal, gait/station normal, normal range of motion Psychiatric: mood/affect normal Skin: warm/dry Medical Decision Making Diagnostic Impression: Primary Impression: SBO (small bowel obstruction) Additional Impression: Abdominal pain of unknown etiology ER Course Patient presents with abdominal pain. CT scan concerning for small bowel obstruction versus ileus. He is feeling better now. He now wants to eat. This may indicate that he is no longer obstructed. NG tube placed. Will admit for monitoring and surgical evaluation. Lab Results Impression labs unremarkable Rhythm Strip Diag. Results EP Interpretation: yes Rate: 90 Rhythm: NSR, no PVC's, no ectopy CT/MRI/US Diagnostic Results CT/MRI/US Diagnostic Results : Imaging Test Ordered: CT abdomen and pelvis Impression Read by radiologist. Multiple dilated loops of bowel but now is in the mid abdomen into the pelvis. Suggestion of obstruction versus ileus. Last Vital Signs Date Time Temp Pulse Resp B/P Pulse Ox O2 Delivery O2 Flow Rate FiO2 07/18/16 22:28 97.8 81 16 140/62 98 Room Air Status: improved Disposition: ADMITTED INPATIENT Condition: Serious Referrals: NON PHYSICIAN (PCP) DODIE PENNINGTON M.D. Jul 19, 2016 00:55
--- NOTE | 2016-07-19 07:54 | Nephrology Progress Note ---
Assessment/Plan Problem List: (1) Hepatitis C (2) Abdominal pain (3) Elevated lipase (4) Abdominal pain of unknown etiology (5) SBO (small bowel obstruction) (6) Status post exploratory laparotomy Plan H&P dictated # [id number] Subjective Constitutional: Denies: chills, diaphoresis, fever, malaise, no symptoms, other , weakness HEENT: Denies: blurred vision, double vision, ear discharge, ear pain, eye pain , mouth pain, mouth swelling, no symptoms, nose congestion, nose pain, other, tearing, throat pain, throat swelling Genitourinary: Denies: burning, discharge, flank pain, frequency, hematuria, incontinence, no symptoms, other, pain, urgency Neurologic/Psychiatric: Denies: anxiety, depressed, emotional problems, headache, no symptoms, numbness, other, paresthesia, pre-existing deficit, seizure, tingling, tremors, weakness Objective Objective Last 24 Hour Vital Signs Date Time Temp Pulse Resp B/P Pulse Ox O2 Delivery O2 Flow Rate FiO2 07/19/16 04:00 97.3 80 20 123/81 100 Room Air 07/19/16 02:21 98.2 90 20 133/83 97 Room Air 07/19/16 01:50 97.8 85 14 132/83 99 Room Air 07/19/16 01:50 97.8 85 14 132/83 99 Room Air 07/19/16 01:00 97.8 90 13 137/86 100 Room Air 07/18/16 23:49 97.8 07/18/16 22:28 97.8 81 16 140/62 98 Room Air 07/18/16 22:18 96.6 82 14 143/82 98 Room Air Intake and Output 07/18/16 07/19/16 19:00 07:00 Intake Total 1000 ml Balance 1000 ml Intake IV Total 1000 ml # Voids 2 # Bowel Movements 1 Laboratory Tests 07/18/16 22:45: White Blood Count 7.3, Red Blood Count 4.48L, Hemoglobin 13.2L, Hematocrit 38.8L , Mean Corpuscular Volume 87, Mean Corpuscular Hemoglobin 29.5, Mean Corpuscular Hemoglobin Concent 34.0, Red Cell Distribution Width 11.3L, Platelet Count 409, Mean Platelet Volume 5.4L, Neutrophils (%) (Auto) 67.8, Lymphocytes (%) (Auto) 19.4L, Monocytes (%) (Auto) 8.0, Eosinophils (%) (Auto) 3.3H, Basophils (%) (Auto) 1.6, Urine Color Yellow, Urine Appearance Clear, Urine pH 8, Urine Specific [place] 1.010, Urine Protein Negative, Urine Glucose (UA) Negative, Urine Ketones Negative, Urine Occult Blood Negative, Urine Nitrite Negative, Urine Bilirubin Negative, Urine Urobilinogen Normal, Urine Leukocyte Esterase 1+H, Urine RBC 0-2H, Urine WBC 2-4, Urine Squamous Epithelial Cells Few, Urine Bacteria Few, Urine Mucus FewH, Sodium Level 141, Potassium Level 4.0, Chloride Level 97L, Carbon Dioxide Level 28, Anion Gap 16H , Blood Urea Nitrogen 11, Creatinine 0.8, Estimat Glomerular Filtration Rate , Glucose Level 88, Calcium Level 10.2, Total Bilirubin 0.6, Aspartate Amino Transf (AST/SGOT) 47H, Alanine Aminotransferase (ALT/SGPT) 41, Alkaline Phosphatase 73, Total Protein 8.0, Albumin 4.3, Globulin 3.7, Albumin/Globulin Ratio 1.1, Lipase 82H, Urine Opiates Screen Negative, Urine Barbiturates Screen Negative, Phencyclidine (PCP) Screen Negative, Urine Amphetamines Screen Negative, Urine Benzodiazepines Screen Negative, Urine Cocaine Screen Negative, Urine Marijuana (THC) Screen Negative Height (Feet): 5 Height (Inches): 5.00 Weight (Pounds): 140 General Appearance: no apparent distress, alert EENT: normal ENT inspection, TMs normal Neck: normal alignment, supple Cardiovascular: normal rate, regular rhythm, no JVD Respiratory/Chest: lungs clear, normal breath sounds Abdomen: non tender, soft, no organomegaly Extremities: normal range of motion, non-tender, normal inspection Neurologic: alert, oriented x 3, responsive, normal mood/affect Alona Olivera N.P. Jul 19, 2016 07:54
[2016-07-19] MEDS ORDERED: LORazepam 1mg tab ORAL PRN (08:00)
--- NOTE | 2016-07-19 09:33 | Diagnostic Imaging Report ---
Clinical Indication: Abdominal pain, nausea, vomiting, status post exploratory laparotomy Technique: No oral contrast utilized, per emergency room physician request IV administration nonionic contrast. Venous phase spiral acquisition obtained through the abdomen and pelvis. Multiplanar reconstructions were generated. Total dose length product by 94 mGycm. CTDIvol(s) 12 mGy Comparison: 07/02/2016 Findings: Exam is severely limited due to lack of enteric contrast administration. This is also exacerbated by lack of abdominal fat resulting in limited inherent soft tissue contrast. There are lower abdominal/upper pelvic midline skin eduardo now present. The stomach is distended. The proximal small bowel is nondistended. However, there is a short segment of dilated small bowel in the lower abdomen and pelvis. It is unclear which is the proximal transition which is the distal transition. However, the transition which is posterior within the upper pelvis appears fairly abrupt, whereas the more anterior right lower quadrant transition is more gradual. The remainder of the small bowel is nondilated. Gas and stool are seen within normal caliber colon. A small fairly well-demarcated fluid collection is seen in the right side of the pelvis, measuring 3.5 cm transverse dimension. No other focal fluid collections are evident. No definite evidence of diverticulosis or diverticulitis, although evaluation for such is limited. There is no free intraperitoneal air. There may be trace ascites fluid over the dome of the liver. There is a small sliding-type hiatal hernia. The liver and gallbladder are unremarkable. The bile ducts are normal in caliber. The pancreatic duct is ectatic. This was evident previously. No pancreatic mass. There are abundant peripancreatic calcifications. The spleen is unremarkable. The left kidney demonstrates area of cortical scarring with calcification. There is what is either a large lower pole parapelvic cyst or focal hydronephrosis, favor the former. There is also a cortical cyst. The right kidney demonstrates a wedge-shaped area of low attenuation within the periphery of the upper which was not evident previously. There is also a 1 cm cyst in the interpolar region medially. This was evident previously. No mesenteric or retroperitoneal mass or adenopathy. No pelvic mass or adenopathy. The lung bases demonstrate posterior dependent atelectatic changes and mild bronchiectatic changes. The bones demonstrate degenerative spondylosis changes and mild lumbar scoliotic deformity. There is an ovoid low-attenuation 18 mm nodule versus fluid collection within the subcutaneous fat just superior to and to the left of the umbilicus, also previously demonstrated. A small cyst versus low-attenuation node with a higher attenuation rim measuring 17 mm diameter is seen in the right inguinal region, also evident previously. A similar size hypoattenuating node is seen in the left inguinal region. Also evident previously. There are moderate to large bilateral buttock venous varicosities, slightly more abundant on the right than on the left. Impression: Since the prior study of 07/02/2015, interim abdominal surgery. Per electronic medical record, this was done for lysis of adhesions causing small bowel obstruction Persistent focally markedly dilated lower abdominal and pelvic small bowel, despite the above procedure. Possible etiologies include new or recurrent small bowel obstruction from various causes such as new adhesions or internal hernia. The relatively short segment of dilatation and presence of 2 transition points does raise the possibility of closed loop obstruction, although the transition points appear to be remote from one another so this is deemed less likely. Other possibilities include focal ileus, or failure of the small bowel to return to normal caliber despite interim decompressive surgery. Trace free intraperitoneal fluid over the dome of the -- liver. Small amount of fluid within the pelvis may be free intraperitoneal fluid versus a small loculated collection, favor the former Focal low attenuation within the right kidney, not evident previously, may reflect a focus of pyelonephritis Bilateral renal cysts Left lower pole renal parapelvic cyst versus focal hydronephrosis, favor the former Unusual low-attenuation nodes within the bilateral inguinal regions, in retrospect also evident previously, of uncertain significance 18 mm hypoattenuating nodule in the subcutaneous fat of the anterior abdominal wall, of uncertain significance but probably a cutaneous lesion Bilateral buttock venous varicosities Incidental finding of degenerative spondylosis and scoliotic deformity Bilateral basilar pulmonary dependent atelectasis and mild bronchiectasis This agrees with the preliminary interpretation provided overnight by [facility] service. The CT scanner at [facility] is accredited by the [employer] and the scans are performed using protocols designed to limit radiation exposure to as low as reasonably achievable to attain images of sufficient resolution adequate for diagnostic evaluation.
[2016-07-19 09:44] LABS: BASOPHILS % (AUTO) 1.5 % (0.0-2.0); EOSINOPHILS % (AUTO) 1.9 % (0.0-3.0); LYMPHOCYTES % (AUTO) 32.3 % (20.0-45.0); MEAN CORPUSCULAR HEMOGLOBIN 29.3 PG (27.0-31.0); MEAN CORPUSCULAR HGB CONC 33.1 G/DL (32.0-36.0); MEAN CORPUSCULAR VOLUME 89 FL (80-99); MEAN PLATELET VOLUME 5.8 FL (6.5-10.1); MONOCYTES % (AUTO) 11.7 % (1.0-10.0); NEUTROPHILS % (AUTO) 52.5 % (45.0-75.0); PLATELET COUNT 345 K/UL (150-450); RED CELL DISTRIBUTION WIDTH 11.5 % (11.6-14.8); WHITE BLOOD COUNT 5.4 K/UL (4.8-10.8)
[2016-07-19 09:48] LABS: INR 1.1 (0.9-1.1); PROTHROMBIN TIME 10.9 SEC (9.30-11.50)
[2016-07-19 09:51] LABS: ANION GAP 11 (5-15); CALCIUM 9.5 mg/dL (8.6-10.2); CARBON DIOXIDE 29 mEQ/L (20-30); CHLORIDE 102 mEQ/L (98-107); CREATININE 0.8 mg/dL (0.7-1.2); HEMOLYSIS 3; POTASSIUM 4.6 mEQ/L (3.4-4.9); SODIUM 142 mEQ/L (135-145)
--- NOTE | 2016-07-19 11:43 | General Surgery Progress Note ---
General Surgery-Progress Note Objective Last 24 Hour Vital Signs Date Time Temp Pulse Resp B/P Pulse Ox O2 Delivery O2 Flow Rate FiO2 07/19/16 08:22 97.9 79 19 125/87 96 Room Air 07/19/16 04:00 97.3 80 20 123/81 100 Room Air 07/19/16 02:21 98.2 90 20 133/83 97 Room Air 07/19/16 01:50 97.8 85 14 132/83 99 Room Air 07/19/16 01:50 97.8 85 14 132/83 99 Room Air 07/19/16 01:00 97.8 90 13 137/86 100 Room Air 07/18/16 23:49 97.8 07/18/16 22:28 97.8 81 16 140/62 98 Room Air 07/18/16 22:18 96.6 82 14 143/82 98 Room Air I&O Intake and Output 07/18/16 07/19/16 19:00 07:00 Intake Total 1000 ml Balance 1000 ml Intake IV Total 1000 ml # Voids 2 # Bowel Movements 1 Wound: clean, intact Drains: none Respiratory: clear Abdomen: soft, non-tender, present bowel sounds Extremities: no tenderness Laboratory Tests Test 07/18/16 22:45 07/19/16 09:00 White Blood Count 7.3 K/UL (4.8-10.8) 5.4 K/UL (4.8-10.8) Red Blood Count 4.48 M/UL (4.70-6.10) L 3.90 M/UL (4.70-6.10) L Hemoglobin 13.2 G/DL (14.2-18.0) L 11.4 G/DL (14.2-18.0) L Hematocrit 38.8 % (42.0-52.0) L 34.6 % (42.0-52.0) L Mean Corpuscular Volume 87 FL (80-99) 89 FL (80-99) Mean Corpuscular Hemoglobin 29.5 PG (27.0-31.0) 29.3 PG (27.0-31.0) Mean Corpuscular Hemoglobin Concent 34.0 G/DL (32.0-36.0) 33.1 G/DL (32.0-36.0) Red Cell Distribution Width 11.3 % (11.6-14.8) L 11.5 % (11.6-14.8) L Platelet Count 409 K/UL (150-450) 345 K/UL (150-450) Mean Platelet Volume 5.4 FL (6.5-10.1) L 5.8 FL (6.5-10.1) L Neutrophils (%) (Auto) 67.8 % (45.0-75.0) 52.5 % (45.0-75.0) Lymphocytes (%) (Auto) 19.4 % (20.0-45.0) L 32.3 % (20.0-45.0) Monocytes (%) (Auto) 8.0 % (1.0-10.0) 11.7 % (1.0-10.0) H Eosinophils (%) (Auto) 3.3 % (0.0-3.0) H 1.9 % (0.0-3.0) Basophils (%) (Auto) 1.6 % (0.0-2.0) 1.5 % (0.0-2.0) Urine Color Yellow Urine Appearance Clear Urine pH 8 (4.5-8.0) Urine Specific [place] 1.010 (1.005-1.035) Urine Protein Negative (NEGATIVE) Urine Glucose (UA) Negative (NEGATIVE) Urine Ketones Negative (NEGATIVE) Urine Occult Blood Negative (NEGATIVE) Urine Nitrite Negative (NEGATIVE) Urine Bilirubin Negative (NEGATIVE) Urine Urobilinogen Normal MG/DL (0.0-1.0) Urine Leukocyte Esterase 1+ (NEGATIVE) H Urine RBC 0-2 /HPF (0 - 0) H Urine WBC 2-4 /HPF (0 - 0) Urine Squamous Epithelial Cells Few /LPF (NONE/OCC) Urine Bacteria Few /HPF (NONE) Urine Mucus Few /LPF (NONE/OCC) H Sodium Level 141 mEQ/L (135-145) 142 mEQ/L (135-145) Potassium Level 4.0 mEQ/L (3.4-4.9) 4.6 mEQ/L (3.4-4.9) Chloride Level 97 mEQ/L (98-107) L 102 mEQ/L (98-107) Carbon Dioxide Level 28 mEQ/L (20-30) 29 mEQ/L (20-30) Anion Gap 16 (5-15) H 11 (5-15) Blood Urea Nitrogen 11 mg/dL (7-23) 10 mg/dL (7-23) Creatinine 0.8 mg/dL (0.7-1.2) 0.8 mg/dL (0.7-1.2) Estimat Glomerular Filtration Rate mL/min (>60) mL/min (>60) Glucose Level 88 mg/dL (74-106) 102 mg/dL (74-106) Calcium Level 10.2 mg/dL (8.6-10.2) 9.5 mg/dL (8.6-10.2) Total Bilirubin 0.6 mg/dL (0.0-1.2) Aspartate Amino Transf (AST/SGOT) 47 U/L (5-40) H Alanine Aminotransferase (ALT/SGPT) 41 U/L (3-41) Alkaline Phosphatase 73 U/L (40-129) Total Protein 8.0 g/dL (6.6-8.7) Albumin 4.3 g/dL (3.5-5.2) Globulin 3.7 g/dL Albumin/Globulin Ratio 1.1 (1.0-2.7) Lipase 82 U/L (< 60) H Urine Opiates Screen Negative (NEGATIVE) Urine Barbiturates Screen Negative (NEGATIVE) Phencyclidine (PCP) Screen Negative (NEGATIVE) Urine Amphetamines Screen Negative (NEGATIVE) Urine Benzodiazepines Screen Negative (NEGATIVE) Urine Cocaine Screen Negative (NEGATIVE) Urine Marijuana (THC) Screen Negative (NEGATIVE) Prothrombin Time 10.9 SEC (9.30-11.50) Prothromb Time International Ratio 1.1 (0.9-1.1) Activated Partial Thromboplast Time 26 SEC (23-33) Assessment Additional Comments SBO Plan Additional Comments Gastrografin small bowel follow thru ALEXEY LACY Jul 19, 2016 11:43
--- NOTE | 2016-07-19 14:16 | GI Initial Consult Note ---
Alma Encinas NChristiePChristie 07/19/16 1416: History of Present Illness General Date patient seen: Jul 19, 2016 Time patient seen: 11:00 Reason for Hospitalization: Abdominal Pain Referring physician: MARGIE Reason for Consultation: SBO Present Illness HPI This is a 70-year-old male who had recent abdominal surgery for small bowel obstruction here about 2 weeks ago. He was doing well at home until about an hour prior to arrival. He said he had acute onset abdominal pain felt very nauseous. Had is a large emesis here. Pain was 10 out of 10. No fever or chills. Pain localized to the abdomen. No radiation. No diarrhea. No trauma. GI NOTE: Initial HPI noted above. GI consulted for SBO vs Ileus. Pt recently a patient here at [facility] approximately 2 weeks ago where he under went ex lap with lysis of adhesions for SBO. He returns today c/o of abdominal pain, localized, non radiating, non tender to palpation. LLQ high pitched abdominal sounds auscultated. Per patient had BM yesterday. Utox negative. Pt also p/ w with anemia and elevated lipase. DATE OF OPERATION: 07/04/2016 POSTOPERATIVE DIAGNOSIS: Small bowel obstruction. OPERATION: 1. Exploratory laparotomy. 2. Lysis of the adhesion. 3. Enterorrhaphy. Home Meds Reported Medications Pantoprazole* (PROTONIX*) 40 Mg Tablet.dr, 40 MG ORAL DAILY, TAB 07/22/16 Ledipasvir/Sofosbuvir (Harvoni 90-400 mg Tablet) 1 Each Tablet, 1 EACH PO, TAB 07/01/16 Med list reviewed/reconciled: Yes Allergies: Coded Allergies: No Known Allergies (Unverified , 07/01/16) Patient History History Provided By: Patient, Medical Record PMH Narrative Past Medical History: see triage record, old chart reviewed Past Surgical History: other Pertinent Family History: none Social History: Denies: smoking Immunizations: other Reviewed Nursing Documentation: PMH: Agreed, PSxH: Agreed Nursing Documentation-PM Past Medical History: No History, Except For Hx Cardiac Problems: No - Partial small bowel obstruction, elevated lipase, hypernatremia Hx Cancer: No Hx Gastrointestinal Problems: Yes - HEP C Hx Neurological Problems: No Review of Systems All Other Systems: negative except mentioned in HPI Physical Exam Vital Signs Date Time Temp Pulse Resp B/P Pulse Ox O2 Delivery O2 Flow Rate FiO2 07/18/16 22:18 96.6 82 14 143/82 98 Room Air Sp02 EP Interpretation: reviewed Labs Laboratory Tests Test 07/18/16 22:45 07/19/16 09:00 White Blood Count 7.3 K/UL (4.8-10.8) 5.4 K/UL (4.8-10.8) Red Blood Count 4.48 M/UL (4.70-6.10) L 3.90 M/UL (4.70-6.10) L Hemoglobin 13.2 G/DL (14.2-18.0) L 11.4 G/DL (14.2-18.0) L Hematocrit 38.8 % (42.0-52.0) L 34.6 % (42.0-52.0) L Mean Corpuscular Volume 87 FL (80-99) 89 FL (80-99) Mean Corpuscular Hemoglobin 29.5 PG (27.0-31.0) 29.3 PG (27.0-31.0) Mean Corpuscular Hemoglobin Concent 34.0 G/DL (32.0-36.0) 33.1 G/DL (32.0-36.0) Red Cell Distribution Width 11.3 % (11.6-14.8) L 11.5 % (11.6-14.8) L Platelet Count 409 K/UL (150-450) 345 K/UL (150-450) Mean Platelet Volume 5.4 FL (6.5-10.1) L 5.8 FL (6.5-10.1) L Neutrophils (%) (Auto) 67.8 % (45.0-75.0) 52.5 % (45.0-75.0) Lymphocytes (%) (Auto) 19.4 % (20.0-45.0) L 32.3 % (20.0-45.0) Monocytes (%) (Auto) 8.0 % (1.0-10.0) 11.7 % (1.0-10.0) H Eosinophils (%) (Auto) 3.3 % (0.0-3.0) H 1.9 % (0.0-3.0) Basophils (%) (Auto) 1.6 % (0.0-2.0) 1.5 % (0.0-2.0) Urine Color Yellow Urine Appearance Clear Urine pH 8 (4.5-8.0) Urine Specific Tracy 1.010 (1.005-1.035) Urine Protein Negative (NEGATIVE) Urine Glucose (UA) Negative (NEGATIVE) Urine Ketones Negative (NEGATIVE) Urine Occult Blood Negative (NEGATIVE) Urine Nitrite Negative (NEGATIVE) Urine Bilirubin Negative (NEGATIVE) Urine Urobilinogen Normal MG/DL (0.0-1.0) Urine Leukocyte Esterase 1+ (NEGATIVE) H Urine RBC 0-2 /HPF (0 - 0) H Urine WBC 2-4 /HPF (0 - 0) Urine Squamous Epithelial Cells Few /LPF (NONE/OCC) Urine Bacteria Few /HPF (NONE) Urine Mucus Few /LPF (NONE/OCC) H Sodium Level 141 mEQ/L (135-145) 142 mEQ/L (135-145) Potassium Level 4.0 mEQ/L (3.4-4.9) 4.6 mEQ/L (3.4-4.9) Chloride Level 97 mEQ/L (98-107) L 102 mEQ/L (98-107) Carbon Dioxide Level 28 mEQ/L (20-30) 29 mEQ/L (20-30) Anion Gap 16 (5-15) H 11 (5-15) Blood Urea Nitrogen 11 mg/dL (7-23) 10 mg/dL (7-23) Creatinine 0.8 mg/dL (0.7-1.2) 0.8 mg/dL (0.7-1.2) Estimat Glomerular Filtration Rate mL/min (>60) mL/min (>60) Glucose Level 88 mg/dL (74-106) 102 mg/dL (74-106) Calcium Level 10.2 mg/dL (8.6-10.2) 9.5 mg/dL (8.6-10.2) Total Bilirubin 0.6 mg/dL (0.0-1.2) Aspartate Amino Transf (AST/SGOT) 47 U/L (5-40) H Alanine Aminotransferase (ALT/SGPT) 41 U/L (3-41) Alkaline Phosphatase 73 U/L (40-129) Total Protein 8.0 g/dL (6.6-8.7) Albumin 4.3 g/dL (3.5-5.2) Globulin 3.7 g/dL Albumin/Globulin Ratio 1.1 (1.0-2.7) Lipase 82 U/L (< 60) H Urine Opiates Screen Negative (NEGATIVE) Urine Barbiturates Screen Negative (NEGATIVE) Phencyclidine (PCP) Screen Negative (NEGATIVE) Urine Amphetamines Screen Negative (NEGATIVE) Urine Benzodiazepines Screen Negative (NEGATIVE) Urine Cocaine Screen Negative (NEGATIVE) Urine Marijuana (THC) Screen Negative (NEGATIVE) Prothrombin Time 10.9 SEC (9.30-11.50) Prothromb Time International Ratio 1.1 (0.9-1.1) Activated Partial Thromboplast Time 26 SEC (23-33) General Appearance: well appearing, no apparent distress, alert Head: normocephalic EENT: normal ENT inspection Neck: supple Respiratory: no respiratory distress Cardiovascular: normal rate Gastrointestinal: normal inspection, non tender, soft, abnormal bowel sounds - high pitched to the LLQ indicative of early bowel obs, other - mid abdominal incision site Rectal: deferred Genitourinary: no CVA tenderness Musculoskeletal: normal inspection, back normal Neurologic: normal inspection, alert, oriented x3, responsive Psychiatric: normal inspection, judgement/insight normal Skin: normal inspection, normal color, no rash, warm/dry Lymphatic: normal inspection, no adenopathy Current Medications Current Medications Medications (Trade) Dose Ordered Sig/Chester Route PRN Reason Start Time Stop Time Status Last Admin Dose Admin Clonidine HCl (Catapres) 0.1 mg Q6H PRN ORAL SBP>160 or DBP>90 07/19/16 07:45 08/18/16 07:44 Dextrose STAT PRN IV Hypoglycemia 07/19/16 08:00 08/18/16 07:59 Dextrose/ Electrolytes (D5 0.45%NS W/ KCl 20mEq) 1,000 ml @ 100 mls/hr Q10H IV 07/19/16 14:00 08/18/16 13:59 Diphenhydramine HCl (Benadryl) 25 mg Q6H PRN ORAL Itching/Pruritis 07/19/16 08:00 08/18/16 07:59 Lorazepam (Ativan) 1 mg Q4H PRN ORAL For Anxiety 07/19/16 08:00 07/26/16 07:59 Ondansetron HCl (Zofran) 4 mg Q6H PRN IVP Nausea & Vomiting 07/19/16 08:00 08/18/16 07:59 GI: Plan Problems: (1) Postoperative ileus (2) Anemia (3) SBO (small bowel obstruction) (4) Elevated lipase (5) Hepatitis C (6) Abdominal pain Plan s/p ex lap with lysis adhesion 07/04/16 last BM yesterday surgical note reviewed >> fu SB follow thru AP CT reviewed will follow surgical recs bowel rest >> maintain NPO + IVFs, ok for ice chips bowel decompression >> NGT to LCIS repeat abd imaging studies electrolyte replacement pain mgmt repeat lipase fu labs CALDERON GRIGSBY 07/24/16 0812: History of Present Illness General Reason for Hospitalization: Abdominal Pain Present Illness Home Meds Reported Medications Pantoprazole* (PROTONIX*) 40 Mg Tablet.dr, 40 MG ORAL DAILY, TAB 07/22/16 Ledipasvir/Sofosbuvir (Harvoni 90-400 mg Tablet) 1 Each Tablet, 1 EACH PO, TAB 07/01/16 Allergies: Coded Allergies: No Known Allergies (Unverified , 07/01/16) GI: Plan Plan The patient was seen and examined at bedside and all new and available data was reviewed in the patients chart. I agree with the above findings, impression and plan. (Patient seen earlier today. Signature stamp does not reflect patient encounter time.). -Calderon Encinas,[facility] Denis N.PChristie Jul 19, 2016 14:16 CALDERON GRIGSBY Jul 24, 2016 08:12
[2016-07-19] MEDS: D5 1/2NS w/KCl 20mEq 1,000 ML IV SCH (14:36)
[2016-07-19] MEDS: Pantoprazole Inj IVP SCH ×2 (17:10→20:37)
--- NOTE | 2016-07-19 22:17 | Consultation ---
DATE OF CONSULTATION: 07/19/2016 CONSULTING PHYSICIAN: Lashon Acevedo M.D. REQUESTING PHYSICIAN: Dante Peralta M.D. REASON FOR CONSULTATION: Abdominal pain. HISTORY OF PRESENT ILLNESS: This is a 70-year-old, male, who presented to emergency room last night complaining of abdominal pain. He stated that he had a sudden onset of abdominal pain yesterday and last night. The pain apparently has been all over the abdomen and he has vomited once. He stated that he had a bowel movement prior to the onset of the pain, but since the pain has started he did not have bowel movement. He did not pass any flatus. He denied any fever, cough, dysuria, or frequency. The patient underwent exploratory laparotomy and lysis of adhesion on 07/04/2016 for small bowel obstruction. During the surgery, it was noticed that he had adhesion of the two loops of the bowel to the cecum, which was new to the appendectomy about 6 or 7 years ago. Postoperative course has uneventful and after 4 days he had bowel movement when he was started on a diet and then he was discharged home. He stated at home he did not have any problem. He did not have any pain or he was having normal bowel movement until last night when he developed a severe pain. PAST MEDICAL HISTORY: He denies allergies, asthma, diabetes, hypertension, cardiac or renal diseases. He has a history of hepatitis C. PAST SURGICAL HISTORY: Include appendectomy, hemorrhoidectomy, left inguinal herniorrhaphy, and exploratory laparotomy and lysis of adhesion. MEDICATIONS: He currently takes medicine for hepatitis C. SOCIAL HISTORY: The patient is a 70-year-old, male, who is and father of 2 children. He is unemployed. He denies smoking or drinking, but he had a history of intravenous drug abuse. He claimed that he has been cleared for over 20 years. REVIEW OF SYSTEMS: Noncontributory. PHYSICAL EXAMINATION: GENERAL: The patient appeared to be a well-developed, well-nourished, 70-year-old, male, lying on bed, in no acute distress. In fact, he stated that in the emergency room, he has received a pain medication after which the pain has resolved. HEENT: Head is normocephalic and atraumatic. Eyes, pupils are equal, round, and reactive to light. Mouth is clear. NECK: There is no palpable thyromegaly or adenopathy. CHEST: Clear to auscultation and percussion. HEART: There is no gallop or murmur. S1 and S2 are within normal limits. ABDOMEN: Soft, flat, and nontender. There is no palpable organomegaly and bowel sounds are present. GENITAL: He is status post left inguinal herniorrhaphy. EXTREMITIES: Within normal limits. LABORATORY DATA: CBC on admission has been normal. Chemistry has been normal. CAT scan of the abdomen has shown some dilated small-bowel loops with probably two point of transition. I had a long discussion with Dr. Lozoya in the Radiology and he stated that the small bowel prior to this distended loop of the bowel was not distended and after this area it was not distended and only inserted the loop of the distended small bowel, which might be compatible with closed loop obstruction and he suggested small bowel follow through and a small bowel follow through was obtained and in 45 minutes Gastrografin entered the colon showing that there was absolutely no small bowel obstruction and dilated small bowel, which was seen in the CAT scan was chronic dilated small bowel. DIAGNOSES: 1. Small bowel obstruction ruled out. 2. Abdominal pain, etiology unknown. 3. Hematemesis. RECOMMENDATION: At this time, the patient does not have a small bowel obstruction and the changes, which were seen on the CAT scan was chronic, but from the NG tube the patient has been eating out and coffee ground material so he needs evaluation by gastrointestinal specialist for possible hematemesis. Thank you, Dr. Peralta, for asking me to participate in the management of this patient. Lashon Acevedo M.D. DR: PAMELA JOB#: [id number] CC:
--- NOTE | 2016-07-19 23:07 | HX and Phyl Repo 2 Sig ---
DATE OF ADMISSION: 07/19/2016 HISTORY OF PRESENT ILLNESS: The patient is a 70-year-old male, who was recently discharged from the hospital after exploratory laparotomy and lysis of adhesions on 07/06/2016. He was discharged on 07/13/2016, but came into the ER yesterday with severe abdominal pain. According to him, pain started after eating pizza. He described the pain as sharp,10/10 pain, non radiating. The patient is in the medical/surgical unit at this time and denies discomfort at the moment. He has an NG tube to suction at this time, drainage is coffee ground.History includes hepatitis C and history of small-bowel obstruction. PAST MEDICAL HISTORY: As stated in HPI. HOME MEDICATIONS: Include Harvoni. ALLERGIES: No known allergies. SOCIAL HISTORY: The patient lives at home. He was a former heroine and and cocaine addict, stopped in 1992. FAMILY HISTORY: Noncontributory. REVIEW OF SYSTEM: A full 12-point review of system was reviewed with the patient and positive as stated in history of present illness. PHYSICAL EXAMINATION: VITAL SIGNS: Blood pressure is 123/81, pulse is 80, temperature is 97.3 degrees, O2 saturation is 100% on room air, and respirations 20. GENERAL: The patient appears calm, resting in bed at this time, in no apparent distress. HEENT: Head is normocephalic and atraumatic with moist mucous membranes. Pupils are equal, round, and reactive to light and accommodation. NECK: Supple. No jugular venous distention noted. LUNGS: Clear bilaterally. CARDIOVASCULAR: Regular rate and rhythm. S1 and S2. ABDOMEN: Soft, nontender, and nondistended. Oscar noted. EXTREMITIES: No edema, no cyanosis, and no clubbing. NEUROLOGIC: The patient is awake, alert, and oriented x3 with no focal deficits. LABORATORY DATA: CBC shows white count 7.3, hemoglobin 13.2, hematocrit 38.8, and platelet count of 409,000. BMP, sodium is 141, potassium 4.0, chloride is 97, bicarbonate is 28, BUN is 11, and creatinine is 0.8. Glucose is 88. ASSESSMENT: 1. Abdominal pain. 2. Status post exploratory laparotomy with lysis of adhesions. 3. Hepatitis C. 4. Small bowel obstruction. PLAN: We will start the patient on IV fluid. Continue NG-tube to suction. We will obtain a surgical consult to evaluate the patient. We will monitor the patient's electrolytes. CT scan is pending results. We will also obtain a gastroenterology consult. We will continue NPO at this time. We will continue pain management with Dilaudid as tolerated. We will monitor the patient's overall response to treatment. Dante Peralta M.D. Alona Olivera DR: JAZZ JOB#: [id number] CC: ELICIA
[2016-07-20] MEDS: D5 1/2NS w/KCl 20mEq 1,000 ML IV SCH ×3 (00:24→19:21)
[2016-07-20 00:46] VITALS: BP 134/83
--- NOTE | 2016-07-20 01:17 | History and Physical Report ---
DATE OF ADMISSION: 07/19/2016 HISTORY OF PRESENT ILLNESS: This is a 70-year-old, male, who came to the emergency room for having abdominal pain, nausea, and vomiting one day prior to admission. The patient also has lot of hemoptysis and hematemesis. The patient is currently doing better. He also has two bowel movements on the floor. The patient is otherwise previous surgery on abdomen and history of hypertension. ALLERGIES: NKA. MEDICATIONS: See the list. PHYSICAL EXAMINATION: GENERAL: The patient is an elderly cachectic male who is currently awake, alert, comfortable, and . VITAL SIGNS: Blood pressure is 147/90, pulse 60, and respirations 18. SKIN: Good skin turgor. HEENT: NAD. NG tube in the place. Has lot of suction with bright bloody secretions. CHEST: Bilaterally clear. CARDIOVASCULAR: Regular rhythm. No gallop. No murmur. ABDOMEN: Mild tenderness. Hypoactive bowel sounds. EXTREMITIES: No CCE. NEUROLOGICAL: The patient with no focal deficits. ASSESSMENT AND PLAN: 1. Abdominal pain. 2. Small bowel obstruction. 3. Smoker. 4. History of hypertension. 5. Degenerative arthritis. PLAN: 1. We will admit him on the medical floor. 2. Keep him NPO. 3. Start IV fluid. 4. NG tube suction. 5. Continue Zofran. 6. Consider GI consult. 7. Also consider nephrology consultation with Dr. Peralta. 8. The patient also with dehydration. Fernando Fajardo M.D. DR: AURELIO JOB#: [id number] CC:
[2016-07-20 04:00] VITALS: BP 119/78
[2016-07-20 07:25] LABS: BASOPHILS % (AUTO) 1.1 % (0.0-2.0); EOSINOPHILS % (AUTO) 5.2 % (0.0-3.0); MEAN CORPUSCULAR HGB CONC 33.5 G/DL (32.0-36.0); MEAN CORPUSCULAR VOLUME 86 FL (80-99); MEAN PLATELET VOLUME 5.8 FL (6.5-10.1); MONOCYTES % (AUTO) 13.1 % (1.0-10.0); NEUTROPHILS % (AUTO) 50.6 % (45.0-75.0); PLATELET COUNT 349 K/UL (150-450); RED BLOOD COUNT 4.11 M/UL (4.70-6.10); RED CELL DISTRIBUTION WIDTH 11.9 % (11.6-14.8); WHITE BLOOD COUNT 5.2 K/UL (4.8-10.8)
[2016-07-20 07:48] LABS: ANION GAP 10 (5-15); CALCIUM 9.5 mg/dL (8.6-10.2); CARBON DIOXIDE 28 mEQ/L (20-30); CHLORIDE 107 mEQ/L (98-107); CREATININE 0.8 mg/dL (0.7-1.2); HEMOLYSIS 2; POTASSIUM 4.2 mEQ/L (3.4-4.9); SODIUM 145 mEQ/L (135-145)
[2016-07-20 07:59] VITALS: BP 113/76
[2016-07-20] MEDS: Pantoprazole Inj IVP SCH ×2 (08:54→20:18)
[2016-07-20 11:52] VITALS: BP 118/77
--- NOTE | 2016-07-20 13:08 | GI Progress Note ---
Assessment/Plan Problems: (1) Hepatitis C ICD Codes: B19.20 - Unspecified viral hepatitis C without hepatic coma SNOMED: 39470827 (2) Anemia ICD Codes: D64.9 - Anemia, unspecified SNOMED: 914500467 (3) Postoperative ileus ICD Codes: K91.3 - Postprocedural intestinal obstruction SNOMED: 518850173 Status: stable Status Narrative Discussed with Dr. Leach. Assessment/Plan s/p ex lap with lysis adhesion 07/04/16 last BM yesterday surgical note reviewed >> fu SB follow thru AP CT reviewed EGD scheduled for tomorrow to evaluate coffee ground emesis - adv to [facility], NPO @ [facility]. bowel decompression >> NGTdc'd today electrolyte replacement pain mgmt repeat lipase >> WNL fu labs Subjective Gastrointestinal/Abdominal: Reports: no symptoms Objective Last 24 Hour Vital Signs Date Time Temp Pulse Resp B/P Pulse Ox O2 Delivery O2 Flow Rate FiO2 07/20/16 11:52 98.4 63 20 118/77 99 Room Air 07/20/16 07:59 97.7 68 21 113/76 99 Room Air 07/20/16 04:00 97.7 70 19 119/78 100 Room Air 07/20/16 00:46 98.1 70 19 134/83 98 Room Air 07/19/16 19:00 98.4 77 20 131/89 98 Room Air 07/19/16 16:00 98.2 83 20 137/88 98 Room Air Intake and Output 07/19/16 07/20/16 19:00 07:00 Intake Total 100 ml 940 ml Output Total 1250 ml Balance -1150 ml 940 ml Intake Oral 0 ml 240 ml IV Total 100 ml 700 ml Output Urine Total 550 ml Gastric Drainage Total 700 ml # Voids 7 # Bowel Movements 2 Laboratory Tests Test 07/20/16 05:35 White Blood Count 5.2 K/UL (4.8-10.8) Red Blood Count 4.11 M/UL (4.70-6.10) L Hemoglobin 11.9 G/DL (14.2-18.0) L Hematocrit 35.5 % (42.0-52.0) L Mean Corpuscular Volume 86 FL (80-99) Mean Corpuscular Hemoglobin 29.0 PG (27.0-31.0) Mean Corpuscular Hemoglobin Concent 33.5 G/DL (32.0-36.0) Red Cell Distribution Width 11.9 % (11.6-14.8) Platelet Count 349 K/UL (150-450) Mean Platelet Volume 5.8 FL (6.5-10.1) L Neutrophils (%) (Auto) 50.6 % (45.0-75.0) Lymphocytes (%) (Auto) 30.0 % (20.0-45.0) Monocytes (%) (Auto) 13.1 % (1.0-10.0) H Eosinophils (%) (Auto) 5.2 % (0.0-3.0) H Basophils (%) (Auto) 1.1 % (0.0-2.0) Sodium Level 145 mEQ/L (135-145) Potassium Level 4.2 mEQ/L (3.4-4.9) Chloride Level 107 mEQ/L (98-107) Carbon Dioxide Level 28 mEQ/L (20-30) Anion Gap 10 (5-15) Blood Urea Nitrogen 9 mg/dL (7-23) Creatinine 0.8 mg/dL (0.7-1.2) Estimat Glomerular Filtration Rate mL/min (>60) Glucose Level 92 mg/dL (74-106) Calcium Level 9.5 mg/dL (8.6-10.2) Lipase 57 U/L (< 60) Height (Feet): 5 Height (Inches): 5.00 Weight (Pounds): 140 General Appearance: no apparent distress, alert Cardiovascular: regular rhythm Respiratory/Chest: normal breath sounds, no respiratory distress Abdominal Exam: normal bowel sounds, non tender, soft, other - NGT removed Extremities: normal range of motion Objective NGT dc'd today Alma Encinas N.P. Jul 20, 2016 13:08
[2016-07-20 16:00] VITALS: BP 130/86
--- NOTE | 2016-07-20 17:04 | General Surgery Progress Note ---
General Surgery-Progress Note Subjective Symptoms: improved, BM Objective Last 24 Hour Vital Signs Date Time Temp Pulse Resp B/P Pulse Ox O2 Delivery O2 Flow Rate FiO2 07/20/16 16:00 97.9 68 17 130/86 100 Room Air 07/20/16 11:52 98.4 63 20 118/77 99 Room Air 07/20/16 07:59 97.7 68 21 113/76 99 Room Air 07/20/16 04:00 97.7 70 19 119/78 100 Room Air 07/20/16 00:46 98.1 70 19 134/83 98 Room Air 07/19/16 19:00 98.4 77 20 131/89 98 Room Air I&O Intake and Output 07/19/16 07/20/16 19:00 07:00 Intake Total 100 ml 940 ml Output Total 1250 ml Balance -1150 ml 940 ml Intake Oral 0 ml 240 ml IV Total 100 ml 700 ml Output Urine Total 550 ml Gastric Drainage Total 700 ml # Voids 7 # Bowel Movements 2 Drains: none Respiratory: clear Abdomen: soft, flat, non-tender, present bowel sounds Extremities: no tenderness Laboratory Tests Test 07/20/16 05:35 White Blood Count 5.2 K/UL (4.8-10.8) Red Blood Count 4.11 M/UL (4.70-6.10) L Hemoglobin 11.9 G/DL (14.2-18.0) L Hematocrit 35.5 % (42.0-52.0) L Mean Corpuscular Volume 86 FL (80-99) Mean Corpuscular Hemoglobin 29.0 PG (27.0-31.0) Mean Corpuscular Hemoglobin Concent 33.5 G/DL (32.0-36.0) Red Cell Distribution Width 11.9 % (11.6-14.8) Platelet Count 349 K/UL (150-450) Mean Platelet Volume 5.8 FL (6.5-10.1) L Neutrophils (%) (Auto) 50.6 % (45.0-75.0) Lymphocytes (%) (Auto) 30.0 % (20.0-45.0) Monocytes (%) (Auto) 13.1 % (1.0-10.0) H Eosinophils (%) (Auto) 5.2 % (0.0-3.0) H Basophils (%) (Auto) 1.1 % (0.0-2.0) Sodium Level 145 mEQ/L (135-145) Potassium Level 4.2 mEQ/L (3.4-4.9) Chloride Level 107 mEQ/L (98-107) Carbon Dioxide Level 28 mEQ/L (20-30) Anion Gap 10 (5-15) Blood Urea Nitrogen 9 mg/dL (7-23) Creatinine 0.8 mg/dL (0.7-1.2) Estimat Glomerular Filtration Rate mL/min (>60) Glucose Level 92 mg/dL (74-106) Calcium Level 9.5 mg/dL (8.6-10.2) Lipase 57 U/L (< 60) Assessment Additional Comments abdominal pain resolved Plan Additional Comments per PCP ALEXEY LACY Jul 20, 2016 17:04
--- NOTE | 2016-07-20 17:47 | Cardiac Electrophysiology PN ---
Subjective Subjective [id number] Objective Last 24 Hour Vital Signs Date Time Temp Pulse Resp B/P Pulse Ox O2 Delivery O2 Flow Rate FiO2 07/20/16 16:00 97.9 68 17 130/86 100 Room Air 07/20/16 11:52 98.4 63 20 118/77 99 Room Air 07/20/16 07:59 97.7 68 21 113/76 99 Room Air 07/20/16 04:00 97.7 70 19 119/78 100 Room Air 07/20/16 00:46 98.1 70 19 134/83 98 Room Air 07/19/16 19:00 98.4 77 20 131/89 98 Room Air Intake and Output 07/19/16 07/20/16 19:00 07:00 Intake Total 100 ml 940 ml Output Total 1250 ml Balance -1150 ml 940 ml Intake Oral 0 ml 240 ml IV Total 100 ml 700 ml Output Urine Total 550 ml Gastric Drainage Total 700 ml # Voids 7 # Bowel Movements 2 Laboratory Tests Test 07/20/16 05:35 White Blood Count 5.2 K/UL (4.8-10.8) Red Blood Count 4.11 M/UL (4.70-6.10) L Hemoglobin 11.9 G/DL (14.2-18.0) L Hematocrit 35.5 % (42.0-52.0) L Mean Corpuscular Volume 86 FL (80-99) Mean Corpuscular Hemoglobin 29.0 PG (27.0-31.0) Mean Corpuscular Hemoglobin Concent 33.5 G/DL (32.0-36.0) Red Cell Distribution Width 11.9 % (11.6-14.8) Platelet Count 349 K/UL (150-450) Mean Platelet Volume 5.8 FL (6.5-10.1) L Neutrophils (%) (Auto) 50.6 % (45.0-75.0) Lymphocytes (%) (Auto) 30.0 % (20.0-45.0) Monocytes (%) (Auto) 13.1 % (1.0-10.0) H Eosinophils (%) (Auto) 5.2 % (0.0-3.0) H Basophils (%) (Auto) 1.1 % (0.0-2.0) Sodium Level 145 mEQ/L (135-145) Potassium Level 4.2 mEQ/L (3.4-4.9) Chloride Level 107 mEQ/L (98-107) Carbon Dioxide Level 28 mEQ/L (20-30) Anion Gap 10 (5-15) Blood Urea Nitrogen 9 mg/dL (7-23) Creatinine 0.8 mg/dL (0.7-1.2) Estimat Glomerular Filtration Rate mL/min (>60) Glucose Level 92 mg/dL (74-106) Calcium Level 9.5 mg/dL (8.6-10.2) Lipase 57 U/L (< 60) FREDERICK ORELLANA Jul 20, 2016 17:47
--- NOTE | 2016-07-20 19:52 | Nephrology Progress Note ---
Assessment/Plan Problem List: (1) Abdominal pain (2) Postoperative ileus (3) Anemia (4) Hepatitis C (5) SBO (small bowel obstruction) Assessment: history of (6) Status post exploratory laparotomy Plan GI and Surgery following. Labs stable. Cont IVF. Advance diet per GI/Surg. Pending EGD tomorrow. Subjective Subjective no new c/o. Objective Objective Last 24 Hour Vital Signs Date Time Temp Pulse Resp B/P Pulse Ox O2 Delivery O2 Flow Rate FiO2 07/20/16 16:00 97.9 68 17 130/86 100 Room Air 07/20/16 11:52 98.4 63 20 118/77 99 Room Air 07/20/16 07:59 97.7 68 21 113/76 99 Room Air 07/20/16 04:00 97.7 70 19 119/78 100 Room Air 07/20/16 00:46 98.1 70 19 134/83 98 Room Air Intake and Output 07/19/16 07/20/16 19:00 07:00 Intake Total 100 ml 940 ml Output Total 1250 ml Balance -1150 ml 940 ml Intake Oral 0 ml 240 ml IV Total 100 ml 700 ml Output Urine Total 550 ml Gastric Drainage Total 700 ml # Voids 7 # Bowel Movements 2 Laboratory Tests 07/20/16 05:35: White Blood Count 5.2, Red Blood Count 4.11L, Hemoglobin 11.9L, Hematocrit 35.5L , Mean Corpuscular Volume 86, Mean Corpuscular Hemoglobin 29.0, Mean Corpuscular Hemoglobin Concent 33.5, Red Cell Distribution Width 11.9, Platelet Count 349, Mean Platelet Volume 5.8L, Neutrophils (%) (Auto) 50.6, Lymphocytes ( %) (Auto) 30.0, Monocytes (%) (Auto) 13.1H, Eosinophils (%) (Auto) 5.2H, Basophils (%) (Auto) 1.1, Sodium Level 145, Potassium Level 4.2, Chloride Level 107, Carbon Dioxide Level 28, Anion Gap 10, Blood Urea Nitrogen 9, Creatinine 0.8, Estimat Glomerular Filtration Rate , Glucose Level 92, Calcium Level 9.5, Lipase 57 Height (Feet): 5 Height (Inches): 5.00 Weight (Pounds): 140 General Appearance: no apparent distress Cardiovascular: normal rate, regular rhythm Respiratory/Chest: normal breath sounds Abdomen: non tender, soft Extremities: non-pitting Neurologic: alert KYLEE HANSON Jul 20, 2016 19:52
[2016-07-20 20:00] VITALS: BP 137/88
--- NOTE | 2016-07-20 23:07 | Consultation ---
DATE OF CONSULTATION: CARDIOLOGY CONSULTATION CONSULTING PHYSICIAN: Ulices Sherman M.D. REFERRING PHYSICIAN: Fernando Fajardo M.D. REASON FOR CONSULTATION: Shortness of breath. HISTORY OF PRESENT ILLNESS: The patient is a 70-year-old gentleman with history of hepatitis C and history of heroin use in the past, who was recently discharged from the hospital after laparotomy and lysis of adhesions on 07/06/2016. The patient was discharged on 07/13/2016 and came back to the emergency room on 07/19/2016 complaining of abdominal pain. This started after he had a pizza and the pain was very sharp. The patient also was complaining of shortness of breath and hence Cardiology consultation was obtained for further evaluation. REVIEW OF SYSTEMS: Review of systems was thoroughly performed and was negative other than what was mentioned in the history of present illness. PAST MEDICAL HISTORY: 1. History of hepatitis C. 2. Small bowel obstruction, status post surgery on 07/06/2016. MEDICATIONS: At home include Harvoni. ALLERGIES: He has no known drug allergies. SOCIAL HISTORY: He lives at home. He is a former heroin and cocaine addict, stopped in 1992. PHYSICAL EXAMINATION: VITAL SIGNS: Blood pressure is 130/86, pulse 68, respirations 18, and temperature 97.9 degrees. HEAD AND NECK: Showed no JVD. LUNGS: Clear. CARDIOVASCULAR: Shows regular S1 and S2 with no gallop or murmur. ABDOMEN: Soft. The eduardo are at the surgical site abdomen and are removed. EXTREMITIES: No pitting edema. LABORATORY DATA: White count 5.2, hemoglobin 11.9, hematocrit 35.5, and platelet count of 349,000. Sodium of 144, potassium 4.2, BUN of 9, and creatinine 0.8. Lipase 57. INR is 1.1. Urine toxicology is negative. ASSESSMENT AND PLAN: 1. Shortness of breath. The patient is quite comfortable at this time. Get an echocardiogram as well as an EKG for further evaluation and management. Also, check a brain natriuretic peptide. 2. Status post small bowel obstruction surgery. The patient was evaluated by Dr. Acevedo. The eduardo were removed. The abdominal pain has resolved. 3. History of hypertension, currently off antihypertensives. 4. Degenerative arthritis. Thank you very much, Dr. Fajardo, for allowing me to participate in the care of this patient. Please do not hesitate to contact me if you have any questions regarding my evaluation. Ulices Sherman M.D. DR: LEENA JOB#: [id number] CC:
[2016-07-21] VITALS (10 sets, daily range): BP systolic 119–142; BP diastolic 77–96
[2016-07-21] MEDS: D5 1/2NS w/KCl 20mEq 1,000 ML IV SCH ×2 (05:16→16:19)
[2016-07-21] MEDS ORDERED: NS 550ML IV ONE (06:53)
[2016-07-21] MEDS ORDERED: LR 1000ml ONE (07:00)
[2016-07-21] MEDS ORDERED: Lidocaine 1% MPF 10mg/ml 5ml ONE (07:00)
[2016-07-21] MEDS ORDERED: Propofol 10mg/ml 20ml IV ONE (07:00)
[2016-07-21 07:03] LABS: INR 1.1 (0.9-1.1); PROTHROMBIN TIME 11.5 SEC (9.30-11.50)
--- NOTE | 2016-07-21 07:07 | Anethesia Preoperative Eval ---
Anesthesia Pre-op PMH/ROS General Date of Evaluation: Jul 21, 2016 Time of Evaluation: 07:05 Anesthesiologist: keyon ASA Score: ASA 2 Mallampati Score Class I : Soft palate, uvula, fauces, pillars visible Class II: Soft palate, uvula, fauces visible Class III: Soft palate, base of uvula visible Class IV: Only hard plate visible Mallampati Classification: Class II Surgeon: howard Surgical Procedure: egd Anesthesia History: none Social History: smoking Family History: no anesthesia problems Allergies: Coded Allergies: No Known Allergies (Unverified , 07/01/16) Medications: see eMAR Past Medical History Cardiovascular: Denies: CAD, HTN, SC, arrhythmia, other, valve dz Pulmonary: Denies: COPD, COMFORT, asthma, other Gastrointestinal/Genitourinary: Reports: other - hep c Neurologic/Psychiatric: Denies: CVA, TIA, dementia, depression/anxiety, other Endocrine: Denies: DM, hypothyroidism, other, steroids HEENT: Denies: [place] (L), [place] (R), cataract (L), cataract (R), glaucoma, other Hematology/Immune: Denies: DVT, anemia, bleeding disorder, other Musculoskeletal/Integumentary: Denies: DDD, DJD, OA, RA, edema, other PMH Narrative: 1. Abdominal pain. 2. Small bowel obstruction. 3. Smoker. 4. History of hypertension. 5. Degenerative arthritis. PSxH Narrative: small bowel obstruction Anesthesia Pre-op Phys. Exam Physician Exam Last Vital Signs Date Time Temp Pulse Resp B/P Pulse Ox O2 Delivery O2 Flow Rate FiO2 07/21/16 00:00 97.7 90 20 133/80 99 Room Air Constitutional: NAD Neurologic: CN 2-12 intact Cardiovascular: RRR Respiratory: CTA Gastrointestinal: S/NT/ND Airway Exam Mallampati Classification 2 Mallampati Score: Class II MO: full ROM: full Teeth: missing Dentures: no lower, no upper Anesthesia Pre-op A/P Labs Hematology Test 07/21/16 05:10 White Blood Count Pending Red Blood Count Pending Hemoglobin Pending Hematocrit Pending Mean Corpuscular Volume Pending Mean Corpuscular Hemoglobin Pending Mean Corpuscular Hemoglobin Concent Pending Red Cell Distribution Width Pending Platelet Count Pending Mean Platelet Volume Pending Neutrophils (%) (Auto) Pending Lymphocytes (%) (Auto) Pending Monocytes (%) (Auto) Pending Eosinophils (%) (Auto) Pending Basophils (%) (Auto) Pending Coagulation Test 07/21/16 05:10 Prothrombin Time Pending Prothromb Time International Ratio Pending Activated Partial Thromboplast Time Pending Chemistry Test 07/21/16 05:10 Sodium Level Pending Potassium Level Pending Chloride Level Pending Carbon Dioxide Level Pending Blood Urea Nitrogen Pending Creatinine Pending Estimat Glomerular Filtration Rate Pending Glucose Level Pending Calcium Level Pending Pro-B-Type Natriuretic Peptide Pending Risk Assessment & Plan Plan: mac Status Change Before Surgery: No Pre-Antibiotics Drug: none LANA BRUNO CRNA Jul 21, 2016 07:07
--- NOTE | 2016-07-21 07:09 | Pre-Procedure Note/Attestation ---
Pre-Procedure Note/Attestation Complete Prior to Procedure Planned Procedure: not applicable Procedure Narrative: egd Indications for Procedure Pre-Operative Diagnosis: gib Attestation I attest that I discussed the nature of the procedure; its benefits; risks and complications; and alternatives (and the risks and benefits of such alternatives ), prior to the procedure, with the patient (or the patient's legal sales training representative). I attest that, if there was a reasonable possibility of needing a blood transfusion, the patient (or the patient's legal sales training representative) was given the [facility] standardized written summary, pursuant to the [place] Hallie Blood Safety Act ([place] Health and Safety Code # 1645, as amended). I attest that I re-evaluated the patient just prior to the surgery and that there has been no change in the patient's H&P, except as documented below: ARELIS GRIGSBY Jul 21, 2016 07:08
[2016-07-21 07:19] LABS: BASOPHILS % (AUTO) 1.3 % (0.0-2.0); EOSINOPHILS % (AUTO) 8.2 % (0.0-3.0); LYMPHOCYTES % (AUTO) 35.3 % (20.0-45.0); MEAN CORPUSCULAR HEMOGLOBIN 29.2 PG (27.0-31.0); MEAN CORPUSCULAR HGB CONC 34.2 G/DL (32.0-36.0); MEAN CORPUSCULAR VOLUME 85 FL (80-99); MEAN PLATELET VOLUME 5.9 FL (6.5-10.1); MONOCYTES % (AUTO) 12.7 % (1.0-10.0); NEUTROPHILS % (AUTO) 42.6 % (45.0-75.0); PLATELET COUNT 349 K/UL (150-450); RED BLOOD COUNT 3.78 M/UL (4.70-6.10); RED CELL DISTRIBUTION WIDTH 11.5 % (11.6-14.8); WHITE BLOOD COUNT 4.8 K/UL (4.8-10.8)
--- NOTE | 2016-07-21 07:22 | Endoscopy Procedure Note ---
Endoscopy Procedure Note Indication for Procedure: gib Procedures Performed: EGD Operative Findings/Diagnosis: avel navarrete tear Specimen: yes Pt Tolerated Procedure Well: Yes Estimated Blood Loss: none Anesthesiologist: juno Anesthesia: MAC Implant(s) used?: No 50 yrs or older w/o bx or poly: Not Applicable 10yrs. F/U not recommended: Not Applicable ARELIS GRIGSBY Jul 21, 2016 07:22
[2016-07-21 07:33] LABS: ANION GAP 12 (5-15); CALCIUM 8.9 mg/dL (8.6-10.2); CARBON DIOXIDE 25 mEQ/L (20-30); CHLORIDE 103 mEQ/L (98-107); CREATININE 0.6 mg/dL (0.7-1.2); HEMOLYSIS 1; SODIUM 140 mEQ/L (135-145)
--- NOTE | 2016-07-21 07:39 | Immediate Post-Op Evaluation ---
Immediate Post-Op Evalulation Immediate Post-Op Evalulation Procedure: EGD Date of Evaluation: Jul 21, 2016 Time of Evaluation: 07:39 IV Fluids: 300 Blood Pressure Systolic: 145 Blood Pressure Diastolic: 80 Pulse Rate: 74 Respiratory Rate: 14 O2 Sat by Pulse Oximetry: 99 Temperature (Fahrenheit): 98.4 Nausea: No Vomiting: No Patient Status: awake, reacts, patent Hydration Status: adequate Drug: none LANA BRUNO CRNA Jul 21, 2016 07:39
--- NOTE | 2016-07-21 08:30 | 48 Hour Post Anesthesia Eval ---
Post Anesthesia Evaluation Procedure: EGD Date of Evaluation: Jul 21, 2016 Time of Evaluation: 08:29 Blood Pressure Systolic: 140 0: 91 Pulse Rate: 74 O2 Sat by Pulse Oximetry: 99 Airway: patent Nausea: No Vomiting: No Hydration Status: adequate Cardiopulmonary Status: normal Mental Status/LOC: patient returned to baseline Post-Anesthesia Complications: none Follow-up care needed: N/A LANA BRUNO CRNA Jul 21, 2016 08:30
[2016-07-21] MEDS: Pantoprazole Inj IVP SCH ×2 (09:00→20:01)
--- NOTE | 2016-07-21 10:15 | Diagnostic Imaging Report ---
Indication: Evidence of small bowel obstruction on recent CT scan. History of recent surgery for small bowel obstruction Technique: Patient ingested water-soluble contrast. Serial overhead images were obtained Comparison: 07/09/2016 Findings: Coil Winding Supervisor film demonstrates a nasogastric tube, tip which projects at the level gastric body. There are midline skin eduardo. Contrast from previous CT scan is seen within the bladder. Arterial calcifications are seen in the right side of the pelvis. After contrast ingestion, there is rapid transit of contrast through the bowel. On the 15 minute exam, contrast has already progressed through the dilated small bowel loops and well into the smaller caliber pelvic small bowel loops. At 45 minutes, contrast is probably seen within the colon and at 75 minutes contrast is definitely seen within the colon. On the later images, there appears to be decreased caliber of the dilated small bowel loops. Impression: Rapid transit of contrast throughout the small bowel. Proximal small bowel dilatation is presumed functional rather than on an obstructive basis Images reviewed in person with Dr. Acevedo
--- NOTE | 2016-07-21 18:30 | Cardiac Electrophysiology PN ---
Assessment/Plan Assessment/Plan 1. Shortness of breath.Resolved. Echocardiogram is pending and brain natriuretic peptide is normal. 2. Status post small bowel obstruction surgery. The eduardo were removed. The abdominal pain has resolved. 3. History of hypertension, currently off antihypertensives. 4. Degenerative arthritis. 5. EGD by Dr Leach, Arleen Whitfield tear. Subjective Subjective Comfortable in NAD. No chest pain or SOB. Had EGD today that showed Arleen Monterroso tear. Objective Last 24 Hour Vital Signs Date Time Temp Pulse Resp B/P Pulse Ox O2 Delivery O2 Flow Rate FiO2 07/21/16 16:00 96.8 72 17 123/80 99 Room Air 07/21/16 11:49 97.9 63 20 119/96 95 Room Air 07/21/16 08:30 74 99 07/21/16 07:57 97.6 66 17 138/90 99 Room Air 07/21/16 07:45 64 15 133/88 100 Room Air 07/21/16 07:39 74 14 99 07/21/16 07:35 64 16 137/92 100 Room Air 07/21/16 07:30 63 16 140/96 100 Simple Mask 6.0 07/21/16 07:26 97.8 64 20 142/96 100 Simple Mask 6.0 07/21/16 04:00 98.1 70 20 119/77 98 Room Air 07/21/16 00:00 97.7 90 20 133/80 99 Room Air 07/20/16 20:00 97.9 65 19 137/88 99 Room Air Intake and Output 07/20/16 07/21/16 19:00 07:00 Intake Total 1340 ml 880 ml Output Total 600 ml Balance 1340 ml 280 ml Intake Oral 240 ml 480 ml IV Total 1100 ml 400 ml Output Urine Total 600 ml # Voids 2 # Bowel Movements 1 Laboratory Tests Test 07/21/16 05:10 White Blood Count 4.8 K/UL (4.8-10.8) Red Blood Count 3.78 M/UL (4.70-6.10) L Hemoglobin 11.1 G/DL (14.2-18.0) L Hematocrit 32.3 % (42.0-52.0) L Mean Corpuscular Volume 85 FL (80-99) Mean Corpuscular Hemoglobin 29.2 PG (27.0-31.0) Mean Corpuscular Hemoglobin Concent 34.2 G/DL (32.0-36.0) Red Cell Distribution Width 11.5 % (11.6-14.8) L Platelet Count 349 K/UL (150-450) Mean Platelet Volume 5.9 FL (6.5-10.1) L Neutrophils (%) (Auto) 42.6 % (45.0-75.0) L Lymphocytes (%) (Auto) 35.3 % (20.0-45.0) Monocytes (%) (Auto) 12.7 % (1.0-10.0) H Eosinophils (%) (Auto) 8.2 % (0.0-3.0) H Basophils (%) (Auto) 1.3 % (0.0-2.0) Prothrombin Time 11.5 SEC (9.30-11.50) Prothromb Time International Ratio 1.1 (0.9-1.1) Activated Partial Thromboplast Time 27 SEC (23-33) Sodium Level 140 mEQ/L (135-145) Potassium Level 4.0 mEQ/L (3.4-4.9) Chloride Level 103 mEQ/L (98-107) Carbon Dioxide Level 25 mEQ/L (20-30) Anion Gap 12 (5-15) Blood Urea Nitrogen 7 mg/dL (7-23) Creatinine 0.6 mg/dL (0.7-1.2) L Estimat Glomerular Filtration Rate mL/min (>60) Glucose Level 92 mg/dL (74-106) Calcium Level 8.9 mg/dL (8.6-10.2) Pro-B-Type Natriuretic Peptide 71 pg/mL (0-125) Objective HEAD AND NECK: Showed no JVD. LUNGS: Clear. CARDIOVASCULAR: Shows regular S1 and S2 with no gallop or murmur. ABDOMEN: Soft. The eduardo are at the surgical site in abdomen are removed. EXTREMITIES: No pitting edema. FREDERICK ORELLANA Jul 21, 2016 18:30
--- NOTE | 2016-07-21 19:38 | Procedure Note ---
DATE OF PROCEDURE: 07/21/2016 SURGEON: Calderon Leach M.D. PROCEDURE: Upper endoscopy with biopsy ANESTHESIA: Per Lena DEE. INSTRUMENT: Olympus adult flexible upper endoscope. INDICATION: Upper gastrointestinal bleed. REASON FOR PROCEDURE: The procedure, risks, benefits, and possible consequences, including hemorrhage, aspiration, perforation and infection, and alternative treatments, were explained to the patient/legal guardian by Dr. Calderon Leach and the patient/legal guardian understood and accepted these risks. DESCRIPTION OF PROCEDURE: After informed consent was obtained and the patient was adequately sedated, Olympus upper endoscope was advanced from mouth into the second portion of the duodenum and retroflexion was performed of the stomach. The patient had diffuse gastritis. Random biopsy from antrum of the stomach was obtained to rule out H. pylori infection. The patient had a small hiatal hernia. Also, he had a small Arleen-Whitfield tear in the distal esophagus, which was healing. No adherent clot and no visible vessel. So, no hemostasis was performed. Random biopsy from antrum was obtained to rule out H. pylori infection. SUMMARY OF FINDINGS: 1. Arleen-Whitfield tear. 2. Small hiatal hernia. 3. Gastritis, status post biopsy. RECOMMENDATIONS: Follow up biopsies and treat accordingly. I want to thank Dr. Dante Peralta for this kind referral. Calderon Leach M.D. DR: VALENTE JOB#: [id number] CC: Dante Peralta M.D.
--- NOTE | 2016-07-21 22:33 | Nephrology Progress Note ---
Assessment/Plan Problem List: (1) Abdominal pain (2) Postoperative ileus (3) Anemia (4) Hepatitis C (5) SBO (small bowel obstruction) Assessment: history of (6) Status post exploratory laparotomy Plan GI and Surgery following. Labs stable. Cont IVF. Advance diet per GI/Surg. Subjective Subjective s/p EGD Objective Objective Last 24 Hour Vital Signs Date Time Temp Pulse Resp B/P Pulse Ox O2 Delivery O2 Flow Rate FiO2 07/21/16 20:00 98.2 71 16 125/79 100 Room Air 07/21/16 16:00 96.8 72 17 123/80 99 Room Air 07/21/16 11:49 97.9 63 20 119/96 95 Room Air 07/21/16 08:30 74 99 07/21/16 07:57 97.6 66 17 138/90 99 Room Air 07/21/16 07:45 64 15 133/88 100 Room Air 07/21/16 07:39 74 14 99 07/21/16 07:35 64 16 137/92 100 Room Air 07/21/16 07:30 63 16 140/96 100 Simple Mask 6.0 07/21/16 07:26 97.8 64 20 142/96 100 Simple Mask 6.0 07/21/16 04:00 98.1 70 20 119/77 98 Room Air 07/21/16 00:00 97.7 90 20 133/80 99 Room Air Intake and Output 07/20/16 07/21/16 19:00 07:00 Intake Total 1340 ml 880 ml Output Total 600 ml Balance 1340 ml 280 ml Intake Oral 240 ml 480 ml IV Total 1100 ml 400 ml Output Urine Total 600 ml # Voids 2 # Bowel Movements 1 Laboratory Tests 07/21/16 05:10: White Blood Count 4.8, Red Blood Count 3.78L, Hemoglobin 11.1L, Hematocrit 32.3L , Mean Corpuscular Volume 85, Mean Corpuscular Hemoglobin 29.2, Mean Corpuscular Hemoglobin Concent 34.2, Red Cell Distribution Width 11.5L, Platelet Count 349, Mean Platelet Volume 5.9L, Neutrophils (%) (Auto) 42.6L, Lymphocytes (%) (Auto) 35.3, Monocytes (%) (Auto) 12.7H, Eosinophils (%) (Auto) 8.2H, Basophils (%) (Auto) 1.3, Prothrombin Time 11.5, Prothromb Time International Ratio 1.1, Activated Partial Thromboplast Time 27, Sodium Level 140, Potassium Level 4.0, Chloride Level 103, Carbon Dioxide Level 25, Anion Gap 12, Blood Urea Nitrogen 7, Creatinine 0.6L, Estimat Glomerular Filtration Rate , Glucose Level 92, Calcium Level 8.9, Pro-B-Type Natriuretic Peptide 71 Height (Feet): 5 Height (Inches): 4.00 Weight (Pounds): 145 General Appearance: no apparent distress Cardiovascular: normal rate, regular rhythm Respiratory/Chest: lungs clear Abdomen: non tender, soft KYLEE HANSON Jul 21, 2016 22:33
[2016-07-22] VITALS: BP 116/74
[2016-07-22] MEDS: D5 1/2NS w/KCl 20mEq 1,000 ML IV SCH ×2 (02:00→12:00)
[2016-07-22 04:00] VITALS: BP 124/81
[2016-07-22 07:24] LABS: BASOPHILS % (AUTO) 2.3 % (0.0-2.0); EOSINOPHILS % (AUTO) 8.4 % (0.0-3.0); LYMPHOCYTES % (AUTO) 36.7 % (20.0-45.0); MEAN CORPUSCULAR HEMOGLOBIN 29.9 PG (27.0-31.0); MEAN CORPUSCULAR VOLUME 86 FL (80-99); MEAN PLATELET VOLUME 5.9 FL (6.5-10.1); MONOCYTES % (AUTO) 10.7 % (1.0-10.0); NEUTROPHILS % (AUTO) 41.9 % (45.0-75.0); PLATELET COUNT 244 K/UL (150-450); RED BLOOD COUNT 3.66 M/UL (4.70-6.10); RED CELL DISTRIBUTION WIDTH 11.3 % (11.6-14.8); WHITE BLOOD COUNT 4.8 K/UL (4.8-10.8)
[2016-07-22 07:30] LABS: ANION GAP 13 (5-15); CALCIUM 8.7 mg/dL (8.6-10.2); CARBON DIOXIDE 22 mEQ/L (20-30); CHLORIDE 104 mEQ/L (98-107); CREATININE 0.7 mg/dL (0.7-1.2); HEMOLYSIS 10; POTASSIUM 3.8 mEQ/L (3.4-4.9); SODIUM 139 mEQ/L (135-145)
[2016-07-22 08:09] VITALS: BP 144/81
[2016-07-22] MEDS: Pantoprazole Inj IVP SCH (09:23)
[2016-07-22 11:32] VITALS: BP 133/89
[2016-07-22] MEDS ORDERED: PROTONIX40 MG ORAL (12:48)
--- NOTE | 2016-07-24 08:01 | Discharge Summary ---
Discharge Summary Hospital Course Date of Admission Jul 19, 2016 at 00:35 Date of Discharge Jul 22, 2016 at 14:10 Admitting Diagnosis SBO HPI Alfredo Mosqueda is a 70 year old male who was admitted on Jul 19, 2016 at 00:35 for Shortness Of Breath Hospital Course dc summary dictated # [id number] Discharge Medications Continued Medications: Ledipasvir/Sofosbuvir (Harvoni 90-400 mg Tablet) 1 Each Tablet 1 EACH PO, TAB Pantoprazole* (Protonix*) 40 Mg Tablet.dr 40 MG ORAL DAILY, TAB Discharge Discharge Disposition Patient was discharged to Home (01) Discharge Diagnoses: Discharge Instructions Discharge Instructions Special Instructions I have been assigned to complete a D/C Summary on this account. I was not involved in the patient management Macey Wooten NP (Vanchtein) Jul 24, 2016 08:01
--- NOTE | 2016-07-25 01:18 | Discharge Summary 2 SIG ---
DATE OF ADMISSION: 07/19/2016 DATE OF DISCHARGE: 07/22/2016 REASON FOR HOSPITALIZATION: 70-year-old male, who has recently had abdominal surgery for small bowel obstruction at [facility] about two weeks ago, presented with abdominal pain. He was doing well and then had acute onset of abdominal pain and felt nauseous. He had large emesis. Pain described as a 10/10 on a scale 1 to 10. Pain localized to the abdomen. No radiation. Denied fever or chills. Denied diarrhea. No trauma. No injuries. Initially, in the emergency room, CT of the abdomen and pelvis was suggestive for small bowel obstruction versus ileus. Surgeon consulted urgently. The patient was transferred to the floor for further management. ADMITTING DIAGNOSES: 1. Small bowel obstruction versus ileus. 2. Postoperative ileus. 3. Elevated lipase. 4. Abdominal pain. 5. History of hepatitis C. HOSPITAL STAY: The patient was admitted to the floor. General surgeon and GI followed the patient. The patient undergone small bowel follow through with a Gastrografin. The patient was initially NPO, Intravenous fluids provided, small amount of, ice chips bowel decompression with NG tube to low intermittent suction started, Pain management provided. Gastrointestinal specialist and Surgery closely followed. Small bowels follow- through revealed rapid transit of contrast through the small bowels. Proximal small bowel dilatation presumed functional rather than on the obstructive basis. The patient also undergone EGD with biopsy on 07/21/2016, which revealed small Arleen-Whitfield tear, healing. No hemostasis was performed. Small hiatal hernia. Diffuse gastritis status post biopsy. GI recommended follow up with biopsy and treat accordingly. Diet was slowly advanced. Able to tolerate diet. Pain was controlled with the current analgesic regimen. No further nausea. Vital signs stable. Labs stable. Lipase down to normal. The patient was cleared for discharge and followup with the primary medical doctor. DISCHARGE DIAGNOSES: 1. Postoperative ileus. 2. Small bowel obstruction. 3. Diffuse gastritis status post biopsy. 4. Small hiatal hernia. 5. Arleen-Whitfield tear, healing. 6. Status post esophagogastroduodenoscopy with biopsy. 7. History of hepatitis C. 8. Elevated lipase, resolved. 9. Abdominal pain, controlled. DISCHARGE MEDICATIONS: See medication reconciliation list. DISCHARGE INSTRUCTIONS: The patient was discharged home. Follow up with the primary medical doctor. Dante Peralta M.D. I have been assigned to dictate discharge summary on this account and I was not involved in the patient's management. Macey Wooten (vanchtein) N.PChristie DR: NAHID JOB#: [id number] CC: ELICIA
--- NOTE | 2016-07-27 12:58 | Cardiology Report ---
APPROVED REPORT EXAM: Two-dimensional and M-mode echocardiogram with Doppler and color Doppler. INDICATION Shortness of Breath M-Mode DIMENSIONS IVSd1.0 (0.7-1.1cm)Left Atrium (MM)3.4 (1.6-4.0cm) LVDd4.0 (3.5-5.6cm)Aortic Root2.9 (2.0-3.7cm) PWd.8 (0.7-1.1cm)Aortic Cusp Exc.2.3 (1.5-2.0cm) LVDs2.0 (2.5-4.0cm) PWs1.7 cm Normal left ventricular chamber size, systolic function and wall motion. Left ventricular ejection fraction estimated to be 50-55 %. Mild left ventricular hypertrophy. Anterior Echo-free space, may be due to pericardial fat or effusion. All other cardiac chamber sizes are within normal limits. Mild focal aortic valve sclerosis with adequate cusp excursion. Mildly thickened mitral valve leaflets with normal excursion. Mild mitral annulus and aortic root calcification. Pulmonic valve not well visualized. Normal tricuspid valve structure. IVC at normal size with physiologic collapse. A color flow and spectral Doppler study was performed and revealed: Mild to moderate aortic regurgitation. Trace mitral regurgitation. Mitral diastolic velocities suggest reduced left ventricular relaxation (Grade I). Trace tricuspid regurgitation. Tricuspid systolic velocities suggests peak right ventricular systolic pressure of 15 mmHg. Trace pulmonic regurgitation present.
== END 2016-07-22 14:10 | disposition home or self-care (01) | DRG 388 ==
LOC: EDBD 22:01 → EMR 22:33 → 4E 07-19 00:35 → EDBEDREQ 07-19 00:48
PROC: 0DB68ZX Excision of Stomach, Via Natural or Artificial Opening Endoscopic, Diagnostic (ICD-10-PCS; principal; 2016-07-21 07:18)
DX: K56.69 Other intestinal obstruction (principal); K22.6 Gastro-esophageal laceration-hemorrhage syndrome; K92.0 Hematemesis; D64.9 Anemia, unspecified; B19.20 Unspecified viral hepatitis C without hepatic coma; F17.200 Nicotine dependence, unspecified, uncomplicated; I10 Essential (primary) hypertension; K44.9 Diaphragmatic hernia without obstruction or gangrene; K29.70 Gastritis, unspecified, without bleeding; F14.21 Cocaine dependence, in remission; F11.21 Opioid dependence, in remission
CPT/HCPCS: 36415; 74177; 74250; 80048; 80053; 80300; 81003; 83690; 83880; 85025; 85610; 85730; 93306; 94003; 94150; J2405

== ENCOUNTER → 2016-08-24 | Outpatient (CLI) | payer MEDICARE, MEDICAID ==
[~2016-08-24] MED LIST changes: +PROTONIX40 MG ORAL
--- NOTE | 2016-08-24 15:37 | GI Progress Note ---
Assessment/Plan Problems: (1) Helicobacter pylori (H. pylori) ICD Codes: A04.8 - Other specified bacterial intestinal infections SNOMED: 3422927 (2) Postoperative ileus ICD Codes: K91.3 - Postprocedural intestinal obstruction SNOMED: 957421214 (3) Hepatitis C ICD Codes: B19.20 - Unspecified viral hepatitis C without hepatic coma SNOMED: 13635006 (4) Abdominal pain ICD Codes: R10.9 - Unspecified abdominal pain SNOMED: 72969125 (5) Anemia ICD Codes: D64.9 - Anemia, unspecified SNOMED: 568254998 Status: stable Status Narrative Seen with Dr. Grigsby. Assessment/Plan H Pylori Tx > Amoxicillin + Biaxin + Omeprazole - pt instructed to complete Hep C tx first RTC x 3 months to retest serology Subjective Gastrointestinal/Abdominal: Reports: no symptoms Objective T 97.7 BP 120/71 P 66 HT 5'7 WT 130 Weight (Pounds): 130 General Appearance: no apparent distress, alert Cardiovascular: normal rate Respiratory/Chest: normal breath sounds, no respiratory distress Abdominal Exam: normal bowel sounds, non tender, soft Extremities: normal range of motion Objective Endoscopy Procedure Note Indication for Procedure: gib Procedures Performed: EGD Operative Findings/Diagnosis: avel navarrete tear ARELIS GRIGSBY - Jul 21, 2016 07:22 H Pylori Positive Hep C >> currently undergoing tx >> Shanna with Dr. Kendall Wang Alma Encinas N.P. Aug 24, 2016 15:37
[2016-08-24 16:36] VITALS: BP 120/70
== END | disposition home or self-care (01) ==
LOC: PAN 15:09
DX: A04.8 Other specified bacterial intestinal infections (principal); K91.3 Postprocedural intestinal obstruction; B19.20 Unspecified viral hepatitis C without hepatic coma; R10.9 Unspecified abdominal pain; D64.9 Anemia, unspecified
CPT/HCPCS: 99211

== ENCOUNTER 2019-08-30 16:25 | Emergency (ER) | payer MEDICARE, MEDICAID ==
[~2019-08-30] VITALS: Ht 170.2 cm; Wt 61.2 kg
[2019-08-30 16:45] VITALS: BP 120/85
--- NOTE | 2019-08-30 17:07 | Emergency Room Report ---
History of Present Illness General Chief Complaint: Nausea Source: Patient Present Illness HPI Patient had an episode of nausea diaphoresis weakness and near syncope that lasted approximately 1/2-hour. 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 He had ingested some supplements along with his medication and started to feel ill. He tried running cold water on the back of his head. This persisted until he lay down flat. He is never felt this way before. He denies any diarrhea. There is been no fever or chills. He denies any chest pain or palpitations but he felt ill at that time. The patient has hepatitis C. He takes Harvoni. 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 He denies drug use at this time. No fevers, chills, sore throat, vomiting, diarrhea, dysuria, abdominal pain, shortness of breath, joint pain, rashes, depression, anxiety, visual changes, headache. 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 Reviewed Nursing Documentation: PMH: Agreed; PSxH: Agreed Nursing Documentation-PMH Hx Cardiac Problems: No - Acid Reflux Hx Cancer: No Hx Gastrointestinal Problems: Yes - HEP C Hx Neurological Problems: No Review of Systems All Other Systems: negative except mentioned in HPI Physical Exam Vital Signs Date Time Temp Pulse Resp B/P (MAP) Pulse Ox O2 Delivery O2 Flow Rate FiO2 08/30/19 16:38 97.5 59 18 126/85 (99) 100 Room Air Sp02 EP Interpretation: reviewed, normal General Appearance: well appearing, no apparent distress, GCS 15, thin Head: normocephalic Eyes: bilateral eye normal inspection, bilateral eye PERRL, bilateral eye EOMI ENT: moist mucus membranes Neck: supple Respiratory: lungs clear, normal breath sounds Cardiovascular #1: regular rate, rhythm, no edema Cardiovascular #2: 2+ radial (R) Gastrointestinal: normal inspection, normal bowel sounds, non tender, no mass, non-distended, scaphoid Genitourinary: no CVA tenderness Musculoskeletal: back normal, normal range of motion, no calf tenderness, gait/ station normal Neurologic: alert, motor strength/tone normal, 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 Differential includes acute myocardial infarction, arrhythmia, vasovagal episode amongst others. The patient is feeling better at this time but wants to be evaluated. Evaluation with EKG, chest x-ray and labs. The patient receive IV hydration and Pepcid. He is placed on a growth hacker. Of note Harvoni can cause bradycardia. EKG sinus rhythm with occasional PACs and pulmonary disease pattern. Chest x- ray COPD. Labs with normal CBC. CMP remarkable for minimal elevation in calcium. Urinalysis and toxicology negative. Patient improved with IV hydration. No bradycardia noted on growth hacker. Discussed results with patient. Consideration of observation for near syncope. Patient states he feels stable for outpatient observation and treatment. I concur. Discussed with patient that if he felt ill to return. As the patient has a history of GERD Pepcid ordered. Patient stable for outpatient observation and treatment. No apparent medical emergency at this time. Laboratory Tests Test 08/30/19 16:53 08/30/19 17:03 Urine Color Yellow Urine Appearance Clear Urine pH 7 (4.5-8.0) Urine Specific [place] 1.010 (1.005-1.035) Urine Protein Negative (NEGATIVE) Urine Glucose (UA) Negative (NEGATIVE) Urine Ketones 1+ (NEGATIVE) H Urine Blood Negative (NEGATIVE) Urine Nitrite Negative (NEGATIVE) Urine Bilirubin Negative (NEGATIVE) Urine Urobilinogen Normal MG/DL (0.0-1.0) Urine Leukocyte Esterase Negative (NEGATIVE) Urine Opiates Screen Negative (NEGATIVE) Urine Barbiturates Screen Negative (NEGATIVE) Phencyclidine (PCP) Screen Negative (NEGATIVE) Urine Amphetamines Screen Negative (NEGATIVE) Urine Benzodiazepines Screen Negative (NEGATIVE) Urine Cocaine Screen Negative (NEGATIVE) Urine Marijuana (THC) Screen Negative (NEGATIVE) White Blood Count 4.4 K/UL (4.8-10.8) L Red Blood Count 5.37 M/UL (4.70-6.10) Hemoglobin 15.8 G/DL (14.2-18.0) Hematocrit 46.6 % (42.0-52.0) Mean Corpuscular Volume 87 FL (80-99) Mean Corpuscular Hemoglobin 29.4 PG (27.0-31.0) Mean Corpuscular Hemoglobin Concent 33.9 G/DL (32.0-36.0) Red Cell Distribution Width 12.6 % (11.6-14.8) Platelet Count 255 K/UL (150-450) Mean Platelet Volume 6.3 FL (6.5-10.1) L Neutrophils (%) (Auto) 63.0 % (45.0-75.0) Lymphocytes (%) (Auto) 22.8 % (20.0-45.0) Monocytes (%) (Auto) 8.9 % (1.0-10.0) Eosinophils (%) (Auto) 2.9 % (0.0-3.0) Basophils (%) (Auto) 2.5 % (0.0-2.0) H Prothrombin Time 10.0 SEC (9.30-11.50) Prothrombin Time INR 0.9 (0.9-1.1) Activated Partial Thromboplast Time 25 SEC (23-33) Sodium Level 138 MMOL/L (136-145) Potassium Level 4.2 MMOL/L (3.5-5.1) Chloride Level 99 MMOL/L (98-107) Carbon Dioxide Level 24 MMOL/L (21-32) Anion Gap 15 mmol/L (5-15) Blood Urea Nitrogen 13 mg/dL (7-18) Creatinine 0.8 MG/DL (0.55-1.30) Estimate Glomerular Filtration Rate > 60 mL/min (>60) Glucose Level 94 MG/DL (74-106) Calcium Level 10.4 MG/DL (8.5-10.1) H Total Bilirubin 0.5 MG/DL (0.2-1.0) Aspartate Amino Transferase (AST) 30 U/L (15-37) Alanine Aminotransferase (ALT) 29 U/L (12-78) Alkaline Phosphatase 142 U/L (46-116) H Troponin I 0.000 ng/mL (0.000-0.056) Total Protein 9.5 G/DL (6.4-8.2) H Albumin 5.0 G/DL (3.4-5.0) Globulin 4.5 g/dL Albumin/Globulin Ratio 1.1 (1.0-2.7) Lipase 120 U/L (73-393) EKG Diagnostic Results Rate: normal Rhythm: NSR ST Segments: no acute changes - Pulmonary disease with PAC Rhythm Strip Diag. Results EP Interpretation: yes Rhythm: NSR, no PVC's, other - PA-C Chest X-Ray Diagnostic Results Chest X-Ray Diagnostic Results : Chest X-Ray Ordered: Yes # of Views/Limited/Complete: 1 View Indication: Other EP Interpretation: Yes Interpretation: no consolidation, no effusion, no pneumothorax, other - COPD Impression: Other Electronically Signed by: Electronically signed by Alfredo Morgan MD Last Vital Signs Date Time Temp Pulse Resp B/P (MAP) Pulse Ox O2 Delivery O2 Flow Rate FiO2 08/30/19 20:29 98.1 80 18 127/68 100 Room Air 72 Status: improved Disposition: HOME, SELF-CARE Condition: Improved Scripts Famotidine* (Pepcid 20mg tablet*) 20 Mg Tablet 20 MG ORAL DAILY, #30 TAB 0 Refills Prov: Alfredo Morgan MD 08/30/19 Alfredo Morgan MD Aug 30, 2019 17:07
[2019-08-30 17:36] LABS: APPEARANCE,URINE CLEAR; BILIRUBIN, URINE NEGATIVE (NEGATIVE); GLUCOSE, URINE (UA) NEGATIVE (NEGATIVE); KETONES,URINE 1+ (NEGATIVE); LEUKOCYTE ESTERASE ,URINE NEGATIVE (NEGATIVE); NITRITE,URINE NEGATIVE (NEGATIVE); PH,URINE 7 (4.5-8.0); PROTEIN,URINE NEGATIVE (NEGATIVE); UROBILINOGEN,URINE NORMAL MG/DL (0.0-1.0)
[2019-08-30 17:38] LABS: BASOPHILS % (AUTO) 2.5 % (0.0-2.0); EOSINOPHILS % (AUTO) 2.9 % (0.0-3.0); HEMATOCRIT 46.6 % (42.0-52.0); HEMOGLOBIN 15.8 G/DL (14.2-18.0); LYMPHOCYTES % (AUTO) 22.8 % (20.0-45.0); MEAN CORPUSCULAR VOLUME 87 FL (80-99); MONOCYTES % (AUTO) 8.9 % (1.0-10.0); PLATELET COUNT 255 K/UL (150-450); RED BLOOD COUNT 5.37 M/UL (4.70-6.10); RED CELL DISTRIBUTION WIDTH 12.6 % (11.6-14.8); WHITE BLOOD COUNT 4.4 K/UL (4.8-10.8)
[2019-08-30 17:39] LABS: COLOR,URINE YELLOW
[2019-08-30 17:52] LABS: INR 0.9 (0.9-1.1)
--- NOTE | 2019-08-30 17:53 | Diagnostic Imaging Report ---
EXAM: XR Chest, 1 View CLINICAL HISTORY: ALOC TECHNIQUE: Frontal view of the chest. COMPARISON: No relevant prior studies available. FINDINGS: Lungs: Hyperinflation. Recommend evaluation to determine if this patient would meet criteria for inclusion in an annual low dose CT chest lung cancer screening protocol. No consolidation, pleural effusion, or pneumothorax. Pleural space: See above. Heart: Unremarkable. No cardiomegaly. Mediastinum: Unremarkable. Bones/joints: Unremarkable. IMPRESSION: 1. Hyperinflation. 2. Otherwise no acute cardio pulmonary disease. 3. Recommend evaluation to determine if this patient would meet criteria for inclusion in an annual low dose CT chest lung cancer screening protocol. 4. If there is continued concern consider CT.
[2019-08-30 18:01] LABS: ANION GAP 15 mmol/L (5-15); BLOOD UREA NITROGEN 13 mg/dL (7-18); CALCIUM 10.4 MG/DL (8.5-10.1); CARBON DIOXIDE 24 MMOL/L (21-32); CHLORIDE 99 MMOL/L (98-107); CREATININE 0.8 MG/DL (0.55-1.30); POTASSIUM 4.2 MMOL/L (3.5-5.1); SODIUM 138 MMOL/L (136-145)
[2019-08-30 18:06] LABS: ALANINE AMINOTRANSFERASE 29 U/L (12-78); ALBUMIN/GLOBULIN RATIO 1.1 (1.0-2.7); ALKALINE PHOSPHATASE 142 U/L (46-116); ASPARTATE AMINO TRANSFERASE 30 U/L (15-37); BILIRUBIN,TOTAL 0.5 MG/DL (0.2-1.0)
[2019-08-30 20:08] VITALS: BP 127/68
[2019-08-30] MEDS ORDERED: FAMOTIDINE20 MG ORAL (20:18)
[2019-08-30 20:29] VITALS: BP 127/68
== END 2019-08-30 20:29 | disposition home or self-care (01) ==
LOC: EMR 17:16
DX: R55 Syncope and collapse (principal); B18.2 Chronic viral hepatitis C; R11.0 Nausea; K21.9 Gastro-esophageal reflux disease without esophagitis; F11.11 Opioid abuse, in remission; F14.11 Cocaine abuse, in remission
CPT/HCPCS: 36415; 71045; 80053; 80307; 81003; 83690; 84484; 85025; 85610; 85730; 93005; 96361; 96374; 99284; J7030; S0028